=== PATIENT | male | born 1965 | race Caucasian/White ===

== ENCOUNTER 2017-12-27 19:57 | Emergency (ER) | payer BC, SELFPAY ==
[2017-12-27 19:59] VITALS: BP 116/79; PULSE 105; RESP 20; TEMP 37.2; O2SAT 97; BMI 41.3
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
[2017-12-27 21:24] VITALS: BP 112/78; PULSE 71; RESP 17; O2SAT 97
== END 2017-12-27 21:25 | disposition home or self-care (01) ==
LOC: ED 20:21
PROVIDERS: Emergency Provider Emergency Medicine; Family Provider Family Medicine; PCP Family Medicine
DX: S43.402A Unspecified sprain of left shoulder joint, initial encounter (principal); S40.012A Contusion of left shoulder, initial encounter; V59.40XA Driver of pick-up truck or van injured in collision with unspecified motor vehicles in traffic accident, initial encounter; Y93.89 Activity, other specified; Y92.9 Unspecified place or not applicable
CPT/HCPCS: 73030; 99283

== ENCOUNTER → 2018-02-22 16:44 | Outpatient (CLI) | payer BC, SELFPAY ==
[2018-02-22 17:51] LABS: Hematocrit 46.2 % (40-54); Hemoglobin 15.8 g/dl (13.0-16.5); Mean Corp Hgb Conc 34.2 g/gl (32-36); Mean Corpuscular Hgb 31.1 pg (27.0-32.0); Mean Corpuscular Volume 90.9 fL (80-94); Platelet Count 178 K/mm3 (150-450); RBC Distribution Width SD 42.9 fl (35.1-43.9); Red Blood Count 5.08 M/mm3 (4.6-6.2); White Blood Count 8.2 K/mm3 (4.4-11.0)
[2018-02-22 18:21] LABS: Anion Gap 12 (5-15); BUN 15 mg/dL (7-18); BUN/Creat Ratio 14.3 RATIO (10-20); Calcium,Total 8.3 mg/dL (8.5-10.1); Chloride 106 mmol/L (98-107); Creatinine, Serum 1.05 mg/dL (0.70-1.30); EST Glomerular Filtration Rate 78 mL/min (>60); Est Glom Filt Rate - Afr Amer 94 mL/min (>60); Glucose 93 mg/dL (74-106); Potassium 4.5 mmol/L (3.5-5.1); Sodium Level 144 mmol/L (136-145)
[2018-02-22 18:56] LABS: Scan Indicated on CBC? Y/N NO
== END ==
PROVIDERS: Family Provider Family Medicine; PCP Family Medicine; Visit Provider Physician Assistant
DX: Z01.818 Encounter for other preprocedural examination (principal)
CPT/HCPCS: 36415; 80048; 85027; 93005

== ENCOUNTER 2020-04-29 18:20 | Emergency (ER) | payer BC, SELFPAY ==
[2020-04-29 18:22] VITALS: BP 128/91; PULSE 114; RESP 17; TEMP 35.8; O2SAT 98; BMI 41.1
--- NOTE | 2020-04-29 19:20 | ED.DCSUM_ITS ---
- ER Visit Summary Date of Service: 04/29/20 Chief Complaint: Right wrist laceration History of Present Illness: The patient is a 54 M who presents with a laceration to his right wrist that occurred today. Patient states there was a large amount of bleeding initially. Patient was using a chainsaw to cut tree limbs when he accidentally cut his wrist. Patient states the bleeding stopped after several minutes of pressure. Patient denies any paresthesias or weakness. Patient states his last tetanus was between 5 and 10 years ago. Patient denies any other injuries. Physical Examination: Vital signs are stable. Patient is afebrile. Patient is in no acute distress. Musculoskeletal exam reveals 4 cm linear laceration over the ulnar aspect of the right wrist. There is moderate gapping of the wound margins. There are no foreign bodies noted. Strength is 5/5 in all motions of the right wrist. Sensation was intact to light touch in the radial, median, and ulnar areas. Capillary refill was less than 2 seconds in all digits. Radial and ulnar pulses are equal bilaterally. Emergency Department Course and Treatment: The wound was cleaned and irrigated with copious amounts of normal saline. The wound was anesthetized with 1% plain lidocaine locally. The wound was closed with 7 simple interrupted #4-0 nylon sutures under sterile technique. Patient tolerated the procedure well. Bacitracin dressing was applied. Patient was given a dose of Keflex here. Patient was given a prescription for Keflex. Patient was instructed to follow- up with his primary care physician in 7 days for wound recheck and suture removal. Patient understood and was agreeable with the plan. All questions were answered. Disposition: Discharge home Impression: Right wrist laceration This note was generated with [employer] dictation software. It may contain incorrect words, spelling, and punctuation that were not noted in review of the chart prior to signing ED Disposition - Plan for ED Patient: Disposition: Home or Assisted Living Diagnosis: Laceration of right wrist Instructions: ED Laceration Ext Sutr Stap Tape Prescriptions: Cephalexin [Keflex] 500 mg PO Q6 #40 cap Transmission Status: Pending to [facility]/pharmacy #[id number] Referrals: Compa Elizalde III, MD [Primary Care Provider] - 7 Days for suture removal
[2020-04-29] MEDS: Diphth,Pertuss(Acell),Tet Vac 0.5 ML Vial IM (19:41)
[2020-04-29] MEDS: BACITRACIN 15 GM Tube 1 APPLIC TOPICAL (21:15)
[2020-04-29] MEDS: Cephalexin 500 MG Capsule PO (21:15)
[2020-04-29 21:18] VITALS: RESP 16
== END 2020-04-29 21:19 | disposition home or self-care (01) ==
PROVIDERS: Emergency Provider Emergency Medicine; PCP Family Medicine
DX: S61.511A Laceration without foreign body of right wrist, initial encounter (principal); W31.2XXA Contact with powered woodworking and forming machines, initial encounter; Y93.89 Activity, other specified; Y92.9 Unspecified place or not applicable; Y99.8 Other external cause status
CPT/HCPCS: 12002; 90715; 99282

== ENCOUNTER → 2024-05-01 | Outpatient (CLI) | payer BC, SELFPAY ==
--- OUTSIDE RECORDS SUMMARY | 2024-05-01 11:15 | XMS RPT_ITS | CCD ---
Author Organization [facility] Care Team Providers Care Pharmacy District Manager Name Role Phone NAVEEDDR RUCHI WESTFALL DO Primary Care Physician [phone] IVY LIU, DR CRISTOFER Worthy Attending Kasey Boston MD, DR CRISTOFER Worthy Attending Kasey Boston MD, DR CRISTOFER Worthy Admitting Kasey Schmidt, TRACIE Chacko [facility] RUCHI Worthy Primary Care Unavailab Darvin LIU, DR CRISTOFER Worthy Attending Kasey le Medications Current Medications Medication Drug Class(es) Dates Sig (Normalized) Sig (Original) acetaminophen 1000 mg oral tablet (1 source) Start: 04-17-2024 take 1 tablet by mouth once daily Tylenol Dose : 1,000 mg = 2 tab(s), Oral, q8h, not to exceed 3000 mg/day, 0 Refill(s) Start Date: 04/17/24 Status: Ordered aspirin 81 mg oral tablet (1 source) Platelet Aggregation Inhibitor, Nonsteroidal Anti-inflammatory Drug Start: 04-17-2024 take 1 tablet by mouth twice daily at mealtime aspirin Dose : 81 mg = 1 tab(s), Oral, BIDM, Take 81 mg aspirin twice daily with food for 4 weeks postoperatively for DVT prophylaxis., 0 Refill(s) Start Date: 04/17/24 Status: Ordered docusate sodium 50 mg / sennosides, care home 8.6 mg oral tablet (1 source) Start: 04-17-2024 End: 04-20-2024 take 1 tablet by mouth twice daily Senokot S 50 mg-8.6 mg oral tablet Dose = 2 tab(s), Oral, BID, Take until first bowel movement, then as needed, X 3 day(s), # 12 tab(s), 0 Refill(s), Pharmacy: [facility]/pharmacy #[id number], 177.8, cm, 04/16/24 10:40:00 EDT, Height, kg, 04/16/24 10:40:00 EDT, Dosing Weight Start Date: 04/17/24 Stop Date: 04/20/24 Status: Ordered doxycycline hyclate 100 mg oral capsule (1 source) Tetracycline-class Drug Start: 04-17-2024 End: 05-01-2024 doxycycline hyclate 100 mg oral capsule Dose : 100 mg = 1 cap(s), Oral, q12h, X 14 day(s), # 28 cap(s), 0 Refill(s), 05/01/24 9:04:00 AM EDT, Pharmacy: [facility]/pharmacy #[id number], 177.8, cm, 04/16/24 10:40:00 EDT, Height, 131.8, kg, 04/16/24 10:40:00 EDT, Dosing Weight Start Date: 04/17/24 Stop Date: 05/01/24 Status: Ordered famotidine 20 mg oral tablet (1 source) Histamine-2 Receptor Antagonist Start: 04-17-2024 Pepcid 20 mg oral tablet Dose : 20 mg = 1 tab(s), Oral, qDay, # 30 tab(s), 0 Refill(s), Pharmacy: [facility]/pharmacy #[id number], 177.8, cm, 04/16/24 10:40:00 EDT, Height, kg, 04/16/24 10:40:00 EDT, Dosing Weight Start Date: 04/17/24 Status: Ordered meloxicam 7.5 mg oral tablet (3 sources) Nonsteroidal Anti-inflammatory Drug Start: 04-17-2024 Mobic 7.5 mg oral tablet Dose : 7.5 mg = 1 tab(s), Oral, BIDM, Do not take any other nonsteroidal anti-inflammatories while on meloxicam/Mobic., # 60 tab(s), 0 Refill(s), Pharmacy: [facility]/pharmacy #[id number], 177.8, cm, 04/16/24 10:40:00 EDT, Height, kg, 04/16/24 10:40:00 EDT, Dosing Weight Start Date: 04/17/24 Status: Ordered Start: 03-21-2024 meloxicam 15 m g oral tablet Dose : 15 mg = 1 tab(s), Oral, qDay, # 30 tab(s), 0 Refill(s) Start Date: 03/21/24 Status: Ordered oxyCODONE hydrochloride 5 mg oral tablet (1 source) Opioid Agonist Start: 04-17-2024 End: 04-24-2024 take 1-2 tablets by mouth every four hours as needed for pain oxyCODONE 5 mg oral tablet ( IMMEDIATE release ) See Instructions, PRN as needed for pain, 1-2 tab(s) Oral q4h, # 42 tab(s), 0 Refill(s), 04/24/24 9:05:00 AM EDT, Pharmacy: [facility]/pharmacy #[id number], Status post total left knee replacement, 177.8, cm, 04/16/24 10:40:00 EDT, Height, 131.8, kg, 04/16/24 10:40:00 EDT, Dosing Weight Start Date: 04/17/24 Stop Date: 04/24/24 Status: Ordered Problems Problem Classification Problem Date Documented Da te Episodic/Chronic Diseases of white blood cells (1 source) Leukocytosis; Translations: [Elevated white blood cell count, unspecified] Onset: 04-17-2024 Chronic Essential hypertension (1 source) Essential hypertension; Translations: [Essential (primary) hypertension] Onset: 04-17-2024 Chronic Osteoarthritis (1 source) Osteoarthritis; Translations: [Unspecified osteoarthritis, unspecified site] Onset: 04-17-2024 Chronic Other connective tissue disease (1 source) Artificial knee joint present; Translations: [Presence of left artificial knee joint] Onset: 04-17-2024 Chronic Results Test Name Value Interpretation Reference Range Facility .Auto Diffon 04-17-2024 Basophil, Absolute 0.0 10 3/mcL Normal 0.0-0.2 [facility] Comment on above: Performed By: #### A GABRIEL IZAGUIRRE #### [address] [place], [place] [address] Basophils/100 WBC (Bld) 0.2 % Normal 0.0-2.5 [facility] Comment on above: Performed By: #### A GABRIEL IZAGUIRRE #### [facility] [address] [place], [place] [address] Eosinophil, Absolute 0.0 10 3/mcL Normal 0.0-0.7 [facility] Comment on above: Performed By: #### A GABRIEL IZAGUIRRE #### [address] [address] Eosinophils/100 WBC (Bld) 0.0 % Normal 0.0-7.0 [facility] Comment on above: Performed By: #### A GABRIEL IZAGUIRRE #### [address] [address] Lymphocyte, Absolute 1.0 10 3/mcL Normal 0.9-4.3 [facility] Comment on above: Performed By: #### A GABRIEL IZAGUIRRE #### [address] [address] Lymphocytes/100 WBC (Bld) 6.4 % Low 20.0-40.0 [facility] Comment on above: Performed By: #### A GABRIEL IZAGUIRRE #### [address] [address] Monocyte, Absolute 1.3 10 3/mcL Normal 0.1-1.4 [facility] Comment on above: Performed By: #### A GABRIEL IZAGUIRRE #### [address] [address] Monocytes/100 WBC (Bld) 8.1 % Normal 2.0-13.0 [facility] Comment on above: Performed By: #### A GABRIEL IZAGUIRRE #### [address] [address] Neutrophils/100 WBC (Bld) 85.3 % High 50.0-75.0 [facility] Comment on above: Performed By: #### A GABRIEL IZAGUIRRE #### [address] [address] .GFRon 04-17-2024 GFR 107 ml/min/1.73sqm Normal [facility] Comment on above: Result Comment: GFR Population mean for , Non- Americans Ages 20-29 = 116 mL/min/1.73 sq.m. Ages 30-39 = 107 mL/min/1.73 sq.m. Ages 40-49 = 99 mL/min/1.73 sq.m. Ages 50-59 = 93 mL/min/1.73 sq.m. Ages 60-69 = 85 mL/min/1.73 sq.m. Ages 70+ = 75 mL/min/1.73 sq.m. Chronic Kidney Disease: Less than 60 mL/min/1.73 square meters End Stage Renal Disease: Less than 15 mL/min/1.73 square meters Performed By: #### A GABRIEL IAZGUIRRE #### [address] [address] GFR Non- 88 ml/min/1.73sqm Normal [facility] Comment on above: Result Comment: GFR Population mean for , Non- Americans Ages 20-29 = 116 mL/min/1.73 sq.m. Ages 30-39 = 107 mL/min/1.73 sq.m. Ages 40-49 = 99 mL/min/1.73 sq.m. Ages 50-59 = 93 mL/min/1.73 sq.m. Ages 60-69 = 85 mL/min/1.73 sq.m. Ages 70+ = 75 mL/min/1.73 sq.m. Chronic Kidney Disease: Less than 60 mL/min/1.73 square meters End Stage Renal Disease: Less than 15 mL/min/1.73 square meters Performed By: #### GABRIEL NICHOLS #### [address] [address] .NEUABSon 04-17-2024 Neutrophil, Absolute 13.8 10 3/mcL High 2.3-8.1 [facility] Comment on above: Performed By: #### GABRIEL NICHOLS #### [address] [address] BMPon 04-17-2024 BUN/Creatinine Ratio 22 ratio Normal 7-27 [facility] Comment on above: Performed By: #### GABRIEL NICHOLS #### [address] [address] Calcium [Mass/Vol] 8.5 mg/dL Normal 8.4-10.2 [facility] Comment on above: Performed By: #### A GABRIEL IZAGUIRRE #### [place] [address] Chloride [Moles/Vol] 100 mmol/L Normal 98-107 [facility] Comment on above: Performed By: #### A GABRIEL IZAGUIRRE #### [place] CO2 [Moles/Vol] 29 mmol/L Normal 23-31 [facility] Comment on above: Performed By: #### A GBARIEL IZAGUIRRE #### [place] [address] Creatinine [Mass/Vol] 0.88 mg/dL Normal 0.70-1.30 [facility] Comment on above: Result Comment: Test ing performed on Siemens Dimension EXL analyzer using a modified kinetic Jf technique. Performed By: #### GABRIEL NICHOLS #### [address] [address] Electrolyte Balance 10.0 mEq/L Normal 4.0-15.0 [facility] Comment on above: Performed By: #### GABRIEL NICHOLS #### [address] [address] Glucose [Mass/Vol] 156 mg/dL High 80-115 [facility] Comment on above: Performed By: #### GABRIEL NICHOLS #### [address] [address] Potassium [Moles/Vol] 4.8 mmol/L Normal 3.5-5.1 [facility] Comment on above: Performed By: #### GARBIEL NICHOLS #### [place] [address] Sodium [Moles/Vol] 139 mmol/L Normal 136-145 [facility] Comment on above: Performed By: #### GABRIEL NICHOLS #### [place] [id number] Urea nitrogen [Mass/Vol] 19 mg/dL High 7-18 [facility] Comment on above: Performed By: #### A GABRIEL IZAGUIRRE #### [address] [address] CBCon 04-17-2024 Erythrocyte distribution width (RBC) [Ratio] 13.7 % Normal 11.5-15.5 [facility] Comment on above: Performed By: #### A GABRIEL IZAGUIRRE #### [address] [address] Hematocrit (Bld) [Volume fraction] 43.6 % Normal 40.0-52.0 [facility] Comment on above: Performed By: #### A GABRIEL IZAGUIRRE #### [address] [address] Hgb 14.8 G/dL Normal 13.0-17.5 [facility] Comment on above: Performed By: #### A GABRIEL IZAGUIRRE #### [address] [address] MCH (RBC) [Entitic mass] 31.3 pg Normal 27.0-33.0 [facility] Comment on above: Performed By: #### A GABRIEL IZAGUIRRE #### [address] [address] MCHC 33.9 G/dL Normal 32.0-36.0 [facility] Comment on above: Performed By: #### A GABRIEL IZAGUIRRE #### [address] [address] MCV (RBC) [Entitic vol] 92.3 fL Normal 81.0-100.0 [facility] Comment on above: Performed By: #### A GABRIEL IZAGUIRRE #### [address] [address] Platelet 217 10 3/mcL Normal 150-450 [facility] Comment on above: Performed By: #### A GABRIEL IZAGUIRRE #### [place] [id number] Platelet mean volume (Bld) [Entitic vol] 7.7 fL Normal 6.4-10.5 [facility] Comment on above: Performed By: #### A GABRIEL IZAGUIRRE #### [facility] [address] [place], [place] [address] RBC 4.72 10 6/mcL Normal 4.50-6.00 [facility] Comment on above: Performed By: #### A GABRIEL IZAGUIRRE #### [facility] [address] [place], [place] [address] WBC 16.1 10 3/mcL High 4.5-10.8 [facility] Comment on above: Performed By: #### A GABRIEL IZAGUIRRE #### [address] [place], [place] [address] LABORATORYOrdered By: SYSTEM SYSTEM on 04-17-2024 Basophils (Bld) [#/Vol] 0.0 103/mcL Normal 0.0 - 0.2 10^3/mcL AO Workflow SS Basophils/100 WBC (Bld) 0.2 % Normal 0.0 - 2.5 % AO Workflow SS Calcium [Mass/Vol] 8.5 mg/dL Normal 8.4 - 10. 2 mg/dL AO ADM SS Chloride [Moles/Vol] 100 mmol/L Normal 98 - 10 7 mmol/L AO ADM SS CO2 [Moles/Vol] 29 mmol/L Normal 23 - 31 mmol/L AO ADM SS Creatinine [Mass/Vol] 0.88 mg/dL Normal 0.70 - 1.30 mg/dL AO ADM SS Comment on above: Interpretive Data: T esting performed on Siemens Dimension EXL analyzer using a modified kinetic Jf technique. Electrolyte Balance 10.0 mEq/L Normal 4.0 - 15 .0 mEq/L AO ADM SS Eosinophil, Absolute 0.0 103/mcL Normal 0.0 - 0 .7 10^3/mcL AO Workflow SS Eosinophils/100 WBC (Bld) 0.0 % Normal 0.0 - 7.0 % AO Workflow SS Erythrocyte distribution width (RBC) [Ratio] 13.7 % Normal 11.5 - 15.5 % AO Workflow SS GFR/1.73 sq M.predicted among blacks MDRD (S/P/Bld) [Vol rate/Area] 107 ml/min/1.73sqm Invalid Interpretation Code AO Chemistry S Comment on above: Interpretive Data: GFR Population mean for , Non- Americans Ages 20-29 = 116 mL/min/1.73 sq.m. Ages 30-39 = 107 mL/min/1.73 sq.m. Ages 40-49 = 99 mL/min/1.73 sq.m. Ages 50-59 = 93 mL/min/1.73 sq.m. Ages 60-69 = 85 mL/min/1.73 sq.m. Ages 70+ = 75 mL/min/1.73 sq.m. Chronic Kidney Disease: Less than 60 mL/min/1.73 square meters End Stage Renal Disease: Less than 15 mL/min/1.73 square meters GFR/1.73 sq M.predicted among non-blacks MDRD (S/P/Bld) [Vol rate/Area] 88 ml/min/1.73sqm Invalid Interpretation Code AO Chemistry S Comment on above: Interpretive Data: GFR Population mean for , Non- Americans Ages 20-29 = 116 mL/min/1.73 sq.m. Ages 30-39 = 107 mL/min/1.73 sq.m. Ages 40-49 = 99 mL/min/1.73 sq.m. Ages 50-59 = 93 mL/min/1.73 sq.m. Ages 60-69 = 85 mL/min/1.73 sq.m. Ages 70+ = 75 mL/min/1.73 sq.m. Chronic Kidney Disease: Less than 60 mL/min/1.73 square meters End Stage Renal Disease: Less than 15 mL/min/1.73 square meters Glucose [Mass/Vol] 156 mg/dL High 80 - 115 mg/dL AO ADM SS Hematocrit (Bld) [Volume fraction] 43.6 % Normal 40.0 - 52.0 % AO Workflow SS Hemoglobin (Bld) [Mass/Vol] 14.8 G/dL Normal 13.0 - 17.5 G/dL AO Workflow SS Lymphocytes (Bld) [#/Vol] 1.0 103/mcL Normal 0.9 - 4.3 10^3/mcL AO Workflow SS Lymphocytes/100 WBC (Bld) 6.4 % Low 20.0 - 40.0 % AO Workflow SS MCH (RBC) [Entitic mass] 31.3 pg Normal 27.0 - 33.0 pg AO Workflow SS MCHC 33.9 G/dL Normal 32.0 - 36.0 G/dL AO Workflow SS MCV (RBC) [Entitic vol] 92.3 fL Normal 81.0 - 100.0 fL AO Workflow SS Monocytes (Bld) [#/Vol] 1.3 103/mcL Normal 0.1 - 1.4 10^3/mcL AO Workflow SS Monocytes/100 WBC (Bld) 8.1 % Normal 2.0 - 13.0 % AO Workflow SS Neutrophils (Bld) [#/Vol] 13.8 103/mcL High 2.3 - 8.1 10^3/mcL AO Workflow SS Neutrophils/100 WBC (Bld) 85.3 % High 50.0 - 75.0 % AO Workflow SS Platelet mean volume (Bld) [Entitic vol] 7.7 fL Normal 6.4 - 10.5 fL AO Workflow SS Platelets (Bld) [#/Vol] 217 103/mcL Normal 150 - 450 10^3/mcL AO Workflow SS Potassium [Moles/Vol] 4.8 mmol/L Normal 3.5 - 5.1 mmol/L AO ADM SS RBC (Bld) [#/Vol] 4.72 106/mcL Normal 4.50 - 6.0 0 10^6/mcL AO Workflow SS Sodium [Moles/Vol] 139 mmol/L Normal 136 - 145 mmol/L AO ADM SS Urea nitrogen [Mass/Vol] 19 mg/dL High 7 - 18 mg/dL AO ADM SS Urea nitrogen/Creatinine [Mass ratio] 22 ratio Normal 7 - 27 ratio AO ADM SS WBC (Bld) [#/Vol] 16.1 103/mcL High 4.5 - 10.8 10^3/mcL AO Workflow SS ABO/Rh (Gel)on 04-16-2024 ABO/Rh Interp Positive Invalid Interpretation Code [facility] Comment on above: Performed By: #### A GABRIEL IZAGUIRRE #### [facility] [address] [place], [place] [address] ABS (Gel)on 04-16-2024 ABSC Interp (Gel) Negative Normal [facility] Comment on above: Performed By: #### A GABRIEL IZAGUIRRE #### [address] [place], [place] [address] LABORATORYOrdered By: Heydi Lara on 04-16-2024 ABO and Rh group Nom (Bld) Blood group A Rh(D) positive Invalid Interpretation Code AO BB Auto SS Blood group antibody screen Ql Negative ABSC (04/16/24 6:12 AM) Normal AO BB Auto SS XR KNEE 1 OR 2 VIEWS LEFTon 04-16-2024 XR KNEE 1 OR 2 VIEWS LEFT ORIGINAL EXAMINATION: TWO XRAY VIEWS OF THE LEFT KNEE04/16/2024 9:26 am COMPARISON: CT 03/31/2024 HISTORY: Reason for exam: Status post arthroplasty FINDINGS: Total right knee arthroplasty. Alignment is anatomic. No radiographic evidence of hardware malfunction. Expected recent postoperative changes with surgical jessi overlying the midline knee, soft tissue swelling most notably anteriorly, and subcutaneous gas as well as gas within the knee joint. Small suprapatellar joint effusion. No periprosthetic fracture or other acute fracture. IMPRESSION: Total right knee arthroplasty with immediate postoperative changes. I have personally reviewed the images of this examination and agree with the resident's findings and interpretation. Interpreted by: Thee Tony MD Preliminary Report By: Harry Peña Electronically signed By Thee Tony MD Dictated Date: 04/16/2024 9:46:20 AM Prelim Date: 04/16/2024 10:12:44 AM Sign Date: 04/16/2024 10:12:44 AM Ordering Provider: CRISTOFER HAYNES [facility] CT KNEE W/O CONTRAST LEFTon 03-22-2024 CT KNEE W/O CONTRAST LEFT ORIGINAL EXAMINATION: CT OF THE LEFT KNEE WITHOUT CONTRAST03/21/2024 3:54 pm TECHNIQUE: CT of the left knee was performed without the administration of intravenous contrast. Multiplanar reformatted images are provided for review. Automated exposure control, iterative reconstruction, and/or weight based adjustment of the mA/kV was utilized to reduce the radiation dose to as low as reasonably achievable. COMPARISON: None HISTORY: ORDERING SYSTEM PROVIDED HISTORY: Reason for Exam: Chronic left knee pain, osteoarthritis FINDINGS: No acute fracture or dislocation is identified. Bony alignment is within normal limits. Severe degenerative changes of the medial tibiofemoral and moderate degenerative changes of the lateral tibiofemoral and patellofemoral compartments with joint space narrowing, subchondral sclerosis/cyst, and osteophyte formation. Vacuum phenomenon is visualized within the medial tibiofemoral compartment. Small loose bodies are visualized posterior to the medial femoral condyle. Small suprapatellar joint effusion. Mild soft tissue swelling anterior to the patella and patellar tendon. Scattered vascular calcifications. Multiple dilated tortuous vessels in the superficial medial knee soft tissue may represent varicose veins. The soft tissues are otherwise unremarkable. Limited evaluation of the left hip: No acute fracture or dislocation. Mild degenerative changes of the left hip. Small enthesophytes at the greater trochanter. No suspicious osseous lesion. Prostatic calcifications. Partially visualized fat containing left inguinal hernia. Limited evaluation of the left ankle: No acute fracture or dislocation. Degenerative changes of the tibiotalar and talonavicular joint. Small calcaneal Achilles enthesophytes. Vascular calcifications. No large joint effusion is identified. IMPRESSION: Moderate to severe degenerative changes as above. Small suprapatellar joint effusion. Mild soft tissue swelling anterior to the patella/patellar tendon. I have personally reviewed the images of this examination and agree with the resident's findings and interpretation. Interpreted by: Miquel Lomax MD Preliminary Report By: Costa Isbell Electronically signed By Miquel Lomax MD Dictated Date: 03/21/2024 4:17:05 PM Prelim Date: 03/22/2024 11:02:11 AM Sign Date: 03/22/2024 11:02:11 AM Ordering Provider: CRISTOFER Pappas [facility] .Auto Diffon 03-21-2024 Basophil, Absolute 0.1 10 3/mcL Normal 0.0-0.2 [facility] Comment on above: Performed By: #### A BSGEL, ADIFF, ABOGEL, BMP, ANEU, CBC, GFR, ALB #### [facility] [address] [place], [place] [address] Basophils/100 WBC (Bld) 0.8 % Normal 0.0-2.5 [facility] Comment on above: Performed By: #### A BSGEL, ADIFF, ABOGEL, BMP, ANEU, CBC, GFR, ALB #### [facility] [address] [place], [place] [address] Eosinophil, Absolute 0.3 10 3/mcL Normal 0.0-0.4 [facility] Comment on above: Performed By: #### A BSGEL, ADIFF, ABOGEL, BMP, ANEU, CBC, GFR, ALB #### [address] [address] Eosinophils/100 WBC (Bld) 3.5 % Normal 0.0-7.0 [facility] Comment on above: Performed By: #### A BSGEL, ADIFF, ABOGEL, BMP, ANEU, CBC, GFR, ALB #### [address] [address] Lymphocyte, Absolute 2.1 10 3/mcL Normal 0.8-3.9 [facility] Comment on above: Performed By: #### A BSGEL, ADIFF, ABOGEL, BMP, ANEU, CBC, GFR, ALB #### [address] [address] Lymphocytes/100 WBC (Bld) 27.8 % Normal 10.0-50.0 [facility] Comment on above: Performed By: #### A BSGEL, ADIFF, ABOGEL, BMP, ANEU, CBC, GFR, ALB #### [address] [address] Monocyte, Absolute 0.6 10 3/mcL Normal 0.2-1.0 [facility] Comment on above: Performed By: #### A BSGEL, ADIFF, ABOGEL, BMP, ANEU, CBC, GFR, ALB #### [address] [address] Monocytes/100 WBC (Bld) 8.2 % Normal 1.7-13.0 [facility] Comment on above: Performed By: #### A BSGEL, ADIFF, ABOGEL, BMP, ANEU, CBC, GFR, ALB #### [address] [address] Neutrophils/100 WBC (Bld) 59.7 % Normal 37.0-80.0 [facility] Comment on above: Performed By: #### A BSGEL, ADIFF, ABOGEL, BMP, ANEU, CBC, GFR, ALB #### [address] [address] .GFRon 03-21-2024 GFR Non- 72 ml/min/1.73sqm Normal [facility] Comment on above: Result Comment: GFR Population mean for , Non- Americans Ages 20-29 = 116 mL/min/1.73 sq.m. Ages 30-39 = 107 mL/min/1.73 sq.m. Ages 40-49 = 99 mL/min/1.73 sq.m. Ages 50-59 = 93 mL/min/1.73 sq.m. Ages 60-69 = 85 mL/min/1.73 sq.m. Ages 70+ = 75 mL/min/1.73 sq.m. Chronic Kidney Disease: Less than 60 mL/min/1.73 square meters End Stage Renal Disease: Less than 15 mL/min/1.73 square meters Performed By: #### A GABRIEL IZAGUIRRE #### [address] [address] GFR 87 ml/min/1.73sqm Normal [facility] Comment on above: Result Comment: GFR Population mean for , Non- Americans Ages 20-29 = 116 mL/min/1.73 sq.m. Ages 30-39 = 107 mL/min/1.73 sq.m. Ages 40-49 = 99 mL/min/1.73 sq.m. Ages 50-59 = 93 mL/min/1.73 sq.m. Ages 60-69 = 85 mL/min/1.73 sq.m. Ages 70+ = 75 mL/min/1.73 sq.m. Chronic Kidney Disease: Less than 60 mL/min/1.73 square meters End Stage Renal Disease: Less than 15 mL/min/1.73 square meters Performed By: #### A GABRIEL IZAGUIRRE #### [address] [address] .NEUABSon 03-21-2024 Neutrophil, Absolute 4.6 10 3/mcL Normal 2.9-6.2 [facility] Comment on above: Performed By: #### A BSGEL, ADIFF, ABOGEL, BMP, ANEU, CBC, GFR, ALB #### [address] [address] ABO/Rh (Gel)on 03-21-2024 ABO/Rh Interp Positive Invalid Interpretation Code [facility] Comment on above: Performed By: #### A ZINA ABSGEL #### [address] [address] ABS (Gel)on 03-21-2024 ABSC Interp (Gel) Negative Normal [facility] Comment on above: Performed By: #### A ZINA ABSGEL #### [address] [address] ALBon 03-21-2024 Albumin Level 3.7 G/dL Normal 3.4-4.8 [facility] Comment on above: Performed By: #### A BSGEL, ADIFF, ABOGEL, BMP, ANEU, CBC, GFR, ALB #### [address] [address] BMPon 03-21-2024 BUN/Creatinine Ratio 25 ratio Normal 7-27 [facility] Comment on above: Performed By: #### A BSGEL, ADIFF, ABOGEL, BMP, ANEU, CBC, GFR, ALB #### [address] [address] Calcium [Mass/Vol] 8.8 mg/dL Normal 8.4-10.2 [facility] Comment on above: Performed By: #### A BSGEL, ADIFF, ABOGEL, BMP, ANEU, CBC, GFR, ALB #### [address] [address] Chloride [Moles/Vol] 105 mmol/L Normal 98-107 [facility] Comment on above: Performed By: #### A BSGEL, ADIFF, ABOGEL, BMP, ANEU, CBC, GFR, ALB #### [address] [address] CO2 [Moles/Vol] 26 mmol/L Normal 23-31 [facility] Comment on above: Performed By: #### A BSGEL, ADIFF, ABOGEL, BMP, ANEU, CBC, GFR, ALB #### [address] [address] Creatinine [Mass/Vol] 1.05 mg/dL Normal 0.70-1.30 [facility] Comment on above: Result Comment: Test ing performed on Siemens Dimension EXL analyzer using a modified kinetic Fj technique. Performed By: #### A BSGEL, ADIFF, ABOGEL, BMP, ANEU, CBC, GFR, ALB #### [address] [address] Electrolyte Balance 11.0 mEq/L Normal 4.0-15.0 [facility] Comment on above: Performed By: #### A BSGEL, ADIFF, ABOGEL, BMP, ANEU, CBC, GFR, ALB #### [address] [address] Glucose [Mass/Vol] 109 mg/dL Normal 80-115 [facility] Comment on above: Performed By: #### A BSGEL, ADIFF, ABOGEL, BMP, ANEU, CBC, GFR, ALB #### [address] [address] Potassium [Moles/Vol] 4.2 mmol/L Normal 3.5-5.1 [facility] Comment on above: Performed By: #### A BSGEL, ADIFF, ABOGEL, BMP, ANEU, CBC, GFR, ALB #### [address] [address] Sodium [Moles/Vol] 142 mmol/L Normal 136-145 [facility] Comment on above: Performed By: #### A BSGEL, ADIFF, ABOGEL, BMP, ANEU, CBC, GFR, ALB #### [address] [address] Urea nitrogen [Mass/Vol] 26 mg/dL High 7-18 [facility] Comment on above: Performed By: #### A BSGEL, ADIFF, ABOGEL, BMP, ANEU, CBC, GFR, ALB #### [place] [id number] [facility]Con 03-21-2024 Erythrocyte distribution width (RBC) [Ratio] 13.6 % Normal 11.5-14.5 [facility] Comment on above: Order Comment: Pre-A dmission Testing Performed By: #### A BSGEL, ADIFF, ABOGEL, BMP, ANEU, CBC, GFR, ALB #### [place] [address] Hematocrit (Bld) [Volume fraction] 46.6 % Normal 42.0-52.0 [facility] Comment on above: Order Comment: Pre-A dmission Testing Performed By: #### A BSGEL, ADIFF, ABOGEL, BMP, ANEU, CBC, GFR, ALB #### [place] [address] Hgb 16.0 G/dL Normal 14.0-18.0 [facility] Comment on above: Order Comment: Pre-A dmission Testing Performed By: #### A BSGEL, ADIFF, ABOGEL, BMP, ANEU, CBC, GFR, ALB #### [place] [address] MCH (RBC) [Entitic mass] 31.4 pg High 27.0-31.2 [facility] Comment on above: Order Comment: Pre-A dmission Testing Performed By: #### A BSGEL, ADIFF, ABOGEL, BMP, ANEU, CBC, GFR, ALB #### [place] [address] MCHC 34.3 G/dL Normal 31.8-35.4 [facility] Comment on above: Order Comment: Pre-A dmission Testing Performed By: #### A BSGEL, ADIFF, ABOGEL, BMP, ANEU, CBC, GFR, ALB #### [place] [id number] MCV (RBC) [Entitic vol] 91.5 fL Normal 80.0-94.0 [facility] Comment on above: Order Comment: Pre-A dmission Testing Performed By: #### A BSGEL, ADIFF, ABOGEL, BMP, ANEU, CBC, GFR, ALB #### [address] [address] Platelet 196 10 3/mcL Normal 130-400 [facility] Comment on above: Order Comment: Pre-A dmission Testing Performed By: #### A BSGEL, ADIFF, ABOGEL, BMP, ANEU, CBC, GFR, ALB #### [address] [address] Platelet mean volume (Bld) [Entitic vol] 7.3 fL Low 7.4-10.4 [facility] Comment on above: Order Comment: Pre-A dmission Testing Performed By: #### A BSGEL, ADIFF, ABOGEL, BMP, ANEU, CBC, GFR, ALB #### [address] [address] RBC 5.09 10 6/mcL Normal 4.04-6.13 [facility] Comment on above: Order Comment: Pre-A dmission Testing Performed By: #### A BSGEL, ADIFF, ABOGEL, BMP, ANEU, CBC, GFR, ALB #### [address] [address] WBC 7.7 10 3/mcL Normal 4.6-10.8 [facility] Comment on above: Order Comment: Pre-A dmission Testing Performed By: #### A BSGEL, ADIFF, ABOGEL, BMP, ANEU, CBC, GFR, ALB #### [address] [address] LABORATORYOrdered By: Shaggy Calderon on 03-21-2024 ABO and Rh group Nom (Bld) Blood group A Rh(D) positive Invalid Interpretation Code AO BB Auto SS Blood group antibody screen Ql Negative ABSC (03/21/24 2:55 PM) Normal AO BB Auto SS LABORATORYOrdered By: [employer] on 03-21-2024 Albumin BCP dye [Mass/Vol] 3.7 G/dL Normal 3.4 - 4.8 G/dL AO ADM SS Basophils (Bld) [#/Vol] 0.1 103/mcL Normal 0.0 - 0.2 10^3/mcL AO Workflow SS Basophils/100 WBC (Bld) 0.8 % Normal 0.0 - 2.5 % AO Workflow SS Calcium [Mass/Vol] 8.8 mg/dL Normal 8.4 - 10. 2 mg/dL AO ADM SS Chloride [Moles/Vol] 105 mmol/L Normal 98 - 10 7 mmol/L AO ADM SS CO2 [Moles/Vol] 26 mmol/L Normal 23 - 31 mmol/L AO ADM SS Creatinine [Mass/Vol] 1.05 mg/dL Normal 0.70 - 1.30 mg/dL AO ADM SS Comment on above: Interpretive Data: T esting performed on [employer] Dimension EXL analyzer using a modified kinetic Jf technique. Electrolyte Balance 11.0 mEq/L Normal 4.0 - 15 .0 mEq/L AO ADM SS Eosinophil, Absolute 0.3 103/mcL Normal 0.0 - 0 .4 10^3/mcL AO Workflow SS Eosinophils/100 WBC (Bld) 3.5 % Normal 0.0 - 7.0 % AO Workflow SS Erythrocyte distribution width (RBC) [Ratio] 13.6 % Normal 11.5 - 14.5 % AO Workflow SS GFR/1.73 sq M.predicted among blacks MDRD (S/P/Bld) [Vol rate/Area] 87 ml/min/1.73sqm Invalid Interpretation Code AO Chemistry S Comment on above: Interpretive Data: GFR Population mean for , Non- Americans Ages 20-29 = 116 mL/min/1.73 sq.m. Ages 30-39 = 107 mL/min/1.73 sq.m. Ages 40-49 = 99 mL/min/1.73 sq.m. Ages 50-59 = 93 mL/min/1.73 sq.m. Ages 60-69 = 85 mL/min/1.73 sq.m. Ages 70+ = 75 mL/min/1.73 sq.m. Chronic Kidney Disease: Less than 60 mL/min/1.73 square meters End Stage Renal Disease: Less than 15 mL/min/1.73 square meters GFR/1.73 sq M.predicted among non-blacks MDRD (S/P/Bld) [Vol rate/Area] 72 ml/min/1.73sqm Invalid Interpretation Code AO Chemistry S Comment on above: Interpretive Data: GFR Population mean for , Non- Americans Ages 20-29 = 116 mL/min/1.73 sq.m. Ages 30-39 = 107 mL/min/1.73 sq.m. Ages 40-49 = 99 mL/min/1.73 sq.m. Ages 50-59 = 93 mL/min/1.73 sq.m. Ages 60-69 = 85 mL/min/1.73 sq.m. Ages 70+ = 75 mL/min/1.73 sq.m. Chronic Kidney Disease: Less than 60 mL/min/1.73 square meters End Stage Renal Disease: Less than 15 mL/min/1.73 square meters Glucose [Mass/Vol] 109 mg/dL Normal 80 - 115 mg/dL AO ADM SS Hematocrit (Bld) [Volume fraction] 46.6 % Normal 42.0 - 52.0 % AO Workflow SS Hemoglobin (Bld) [Mass/Vol] 16.0 G/dL Normal 14.0 - 18.0 G/dL AO Workflow SS Lymphocytes (Bld) [#/Vol] 2.1 103/mcL Normal 0.8 - 3.9 10^3/mcL AO Workflow SS Lymphocytes/100 WBC (Bld) 27.8 % Normal 10.0 - 50.0 % AO Workflow SS MCH (RBC) [Entitic mass] 31.4 pg High 27.0 - 31.2 pg AO Workflow SS MCHC 34.3 G/dL Normal 31.8 - 35.4 G/dL AO Workflow SS MCV (RBC) [Entitic vol] 91.5 fL Normal 80.0 - 94.0 fL AO Workflow SS Monocytes (Bld) [#/Vol] 0.6 103/mcL Normal 0.2 - 1.0 10^3/mcL AO Workflow SS Monocytes/100 WBC (Bld) 8.2 % Normal 1.7 - 13.0 % AO Workflow SS Neutrophils (Bld) [#/Vol] 4.6 103/mcL Normal 2.9 - 6.2 10^3/mcL AO Workflow SS Neutrophils/100 WBC (Bld) 59.7 % Normal 37.0 - 80.0 % AO Workflow SS Platelet mean volume (Bld) [Entitic vol] 7.3 fL Low 7.4 - 10.4 fL AO Workflow SS Platelets (Bld) [#/Vol] 196 103/mcL Normal 130 - 400 10^3/mcL AO Workflow SS Potassium [Moles/Vol] 4.2 mmol/L Normal 3.5 - 5.1 mmol/L AO ADM SS RBC (Bld) [#/Vol] 5.09 106/mcL Normal 4.04 - 6.1 3 10^6/mcL AO Workflow SS Sodium [Moles/Vol] 142 mmol/L Normal 136 - 145 mmol/L AO ADM SS Urea nitrogen [Mass/Vol] 26 mg/dL High 7 - 18 mg/dL AO ADM SS Urea nitrogen/Creatinine [Mass ratio] 25 ratio Normal 7 - 27 ratio AO ADM SS WBC (Bld) [#/Vol] 7.7 103/mcL Normal 4.6 - 10.8 10^3/mcL AO Workflow SS LABORATORYOrdered By: Joy Monge on 03-21-2024 MRSA (PCR) Not Detected 1 (03/21/24 2:55 PM) Normal Not Detected Auto Viro/Sero SS Comment on above: Result Comment: Note s MRSA PCR Int MRSA DNA not detected by Real-Time Polymerase Chain Reaction (PCR). A negative result may be due to intermittent colonization. Colonization may vary depending on patient treatment, patient status, or exposure to high-risk environments.As with all PCR based in vitro diagnostic tests, extremely low levels of target below the limit of detection of the assay may be detected, but results may not be reproducible. Invalid Interpretation Code Auto Viro/Sero SS MRSAPCRon 03-21-2024 MRSA (PCR) Not detected Normal Not Detected [facility] Comment on above: Result Comment: [place] [id number] Performed By: #### M RSAPCR #### [place] [address] MRSA PCR Int Normal [facility] Comment on above: Result Comment: MRSA DNA not detected by Real-Time Polymerase Chain Reaction (PCR). A negative result may be due to intermittent colonization. Colonization may vary depending on patient treatment, patient status, or exposure to high-risk environments. As with all PCR based in vitro diagnostic tests, extremely low levels of target below the limit of detection of the assay may be detected, but results may not be reproducible. See Below Performed By: #### M RSAPCR #### [address] [address] Vital Signs Date Time Vital Sign Value [facility]forming [facility]-17-[facility] 14:50-0400 Body temperature 97.52 [degF] DR CRISTOFER HAYNES MD [facility] 04-17-2024 14:50-0400 Diastolic Blood Pressure Non-Invasive 83 mm[Hg] DR CRISTOFER HAYNES MD [facility] 04-17-2024 14:50-0400 Heart rate 98 /min DR CRISTOFER HAYNES MD [facility] 04-17-2024 14:50-0400 Reason For Taking VItal Signs DR CRISTOFER HAYNES MD [facility] 04-17-2024 14:50-0400 Respiratory rate 18 /min DR CRISTOFER HAYNES MD [facility] 04-17-2024 14:50-0400 Systolic Blood Pressure Non-Invasive 156 mm[Hg] DR CRISTOFER HAYNES MD [facility] 04-17-2024 07:36-0400 Body temperature 98.06 [degF] DR CRISTOFER HAYNES MD [facility] 04-17-2024 07:36-0400 Diastolic Blood Pressure Non-Invasive 97 mm[Hg] DR CRISTOFER HAYNES MD [facility] 04-17-2024 07:36-0400 Heart rate 90 /min DR CRISTOFER HAYNES MD [facility] 04-17-2024 07:36-0400 Respiratory rate 20 /min DR CRISTOFER HAYNES MD [facility] 04-17-2024 07:36-0400 Systolic Blood Pressure Non-Invasive 148 mm[Hg] DR CRISTOFER HAYNES MD [facility] 04-17-2024 04:39-0400 Body temperature 97.88 [degF] DR CRISTOFER HAYNES MD [facility] 04-17-2024 04:39-0400 Diastolic Blood Pressure Non-Invasive 87 mm[Hg] DR CRISTOFER HAYNES MD [facility] 04-17-2024 04:39-0400 Heart rate 92 /min DR CRISTOFER HAYNES MD [facility] 04-17-2024 04:39-0400 Respiratory rate 20 /min DR CRISTOFER HAYNES MD [facility] 04-17-2024 04:39-0400 Systolic Blood Pressure Non-Invasive 151 mm[Hg] DR CRISTOFER HAYNES MD [facility] 04-16-2024 23:44-0400 Heart rate 107 /min DR CRISTOFER HAYNES MD [facility] 04-16-2024 19:58-0400 Heart rate 108 /min DR CRISTOFER HAYNES MD [facility] 04-16-2024 14:15-0400 Heart rate 96 /min DR CRISTOFER HAYNES MD [facility] 04-16-2024 10:40-0400 Body height 177.[address] CRISTOFER HAYNES MD [facility] 04-16-2024 10:40-0400 Body weight 131.[address] CRISTOFER HAYNES MD [facility] 04-16-2024 10:40-0400 Body weight 41.69 kg/m2 DR CRISTOFER HAYNES MD [facility] 04-16-2024 09:10-0400 Body temperature 97.34 [degF] DR CRISTOFER HAYNES MD [facility] 04-16-2024 09:05-0400 Respiratory Rate - Anes 18 br/min DR CRISTOFER HAYNES MD [facility] 04-16-2024 08:55-0400 Respiratory Rate - Anes 21 br/min DR CRISTOFER HAYNES MD [facility] 04-16-2024 06:03-0400 Body height 177.[address] CRISTOFER HAYNES MD [facility] 04-16-2024 06:03-0400 Body weight 131.[address] CRISTOFER HAYNES MD [facility] 03-21-2024 14:27-0400 Body height 177.[address] CRISTOFER HAYNES MD [facility] 03-21-2024 14:27-0400 Body weight 131.[address] CRISTOFER HAYNES MD [facility] 03-21-2024 14:27-0400 Body weight 41.69 kg/m2 DR CRISTOFER HAYNES MD [facility] 03-21-2024 14:27-0400 Diastolic Blood Pressure Non-Invasive 92 mm[Hg] DR CRISTOFER HAYNES MD [facility] 03-21-2024 14:27-0400 Heart rate 85 /min DR CRISTOFER HAYNES MD [facility] 03-21-2024 14:27-0400 Respiratory rate 20 /min DR CRISTOFER HAYNES MD [facility] 03-21-2024 14:27-0400 Systolic Blood Pressure Non-Invasive 151 mm[Hg] DR CRISTOFER HAYNES MD [facility] Encounters Encounter Date Encounter Type Care Provider Facility Start: 04-16-2024 End: 04-17-[address] CRISTOFER HAYNES MD Facility:[facility] Start: 04-16-2024 End: 04-17-[address] CRISTOFER HAYNES MD [facility] Start: 03-21-2024 End: 03-21-[address] CRISTOFER HAYNES MD Facility:[facility] Start: 03-21-2024 End: 03-21-[address] CRISTOFER HAYNES MD [facility] Start: 03-21-2024 End: 03-21-[address] CRISTOFER HAYNES MD [facility] Start: 03-21-2024 End: 03-21-[address] CRISTOFER HAYNES MD Facility:[facility] Date Procedure Procedure Detail Performing Clinician Start: 04-16-[address] CRISTOFER HAYNES MD Comment on above: LEFT Arthroscopy of shoulder DR Frida HAYNES MD Comment on above: bilateral Extraction of cataract DR HECTOR LIU Comment on above: bilateral Primary repair of in guinal hernia DR CRISTOFER HAYNES MD Immunizations Immunization Date Immunization Notes Care Provider Fa [facility] 04-29-2020 tetanus toxoid, redu gualberto diphtheria toxoid, and acellular pertussis vaccine, adsorbed DR CRISTOFER HAYNES MD [facility] Payers Date Payer Category Payer Unknown [id number] 1965 Unknown [id number] [id number] 1965 Unknown [id number] [id number] 1965 Unknown [id number] [id number] Social History Date Type Detail Facility Start: 03-21-2024 Tobacco smoking status Ex-smoker (fi nding) [facility] Sex Assigned At Male [facility] Functional Status Date Assessment Result [facility] 04-17-2024 Functional Status Independent [facility] 04-17-2024 Functional Status [facility] 04-16-2024 Functional Status [facility] 04-16-2024 Functional Status [facility] 04-16-2024 Functional Status [facility] 04-16-2024 Functional Status [facility] 04-16-2024 Functional Status Single level home [facility] 04-16-2024 Functional Status [facility] 04-16-2024 Functional Status ice on, tension pillow in place [facility] 04-16-2024 Functional Status NPO Status confirmed [facility] 04-16-2024 Functional Status [facility] 03-21-2024 Functional Status Sensory Deficits None [facility] Mental Status Date Assessment Result Facility 04-17-2024 Mental Status Oriented x 4 [facility] 04-16-2024 Mental Status [facility] 04-16-2024 Mental Status [facility] Clinical Notes 06-10-2021 to 04-17-2024 Note Date & Type Note Facility 04-17-2024 Hospital Discharge instructions Patient Education 04/17/2024 10:19:29 Total Knee Replacement, Care After, [facility] Total Knee Replacement, Care After This sheet gives you information about how to care for yourself after your procedure. Your doctor may also give you more specific instructions. If you have problems or questions, contact your doctor. What can I expect after the procedure? After the procedure, it is common to have: Pain. Swelling. A small amount of blood coming from your cut from surgery (incision). Clear fluid coming from your cut from surgery. Limited movement of your knee. Follow these instructions at home: Medicines Take owge-eiq-zochmqa and prescription medicines only as told by your doctor. If you were prescribed a blood thinner (anticoagulant), take it as told by your doctor. Ask your doctor if the medicine prescribed to you: ?Requires you to avoid driving or using heavy machinery. ?Can cause trouble pooping (constipation). You may need to take steps to prevent or treat trouble pooping: ?Drink enough fluid to keep your pee (urine) pale yellow. ?Take xpya-gqc-mqlkgtc or prescription medicines. ?Eat foods that are high in fiber. These include beans, whole grains, and fresh fruits and vegetables. ?Limit foods that are high in fat and sugar. These include fried or sweet foods. Bathing Do not take baths, swim, or use a hot tub until your doctor approves. Ask your doctor if you may take showers. You may only be allowed to take sponge baths. Keep your bandage (dressing) dry until your doctor says it can be taken off. Incision care and drain care Follow instructions from your doctor about how to take care of your cut from surgery. Make sure you: ?Wash your hands with soap and water before and after you change your bandage. If you cannot use soap and water, use hand food counter attendant. ?Change your bandage as told by your doctor. ?Leave stitches (sutures), skin glue, or skin tape (adhesive) strips in place. They may need to stay in place for 2 weeks or longer. If tape strips get loose and curl up, you may trim the loose edges. Do not remove tape strips completely unless your doctor says it is okay. Check your cut from surgery and your drain site every day for signs of infection. Check for: ?More redness, swelling, or pain. ?More fluid or blood. ?Warmth. ?Pus or a bad smell. If you have a drain, follow instructions from your doctor about caring for it. Managing pain, stiffness, and swelling If told, put ice on your knee. ?Put ice in a plastic bag or use the icing device (cold flow pad or cryocuff) that you were given. Follow your doctor's directions about how to use the icing device. ?Place a towel between your skin and the bag or between your skin and the icing device. ?Leave the ice on for 20 minutes, 2 3 times per day. If told, put heat on your knee before you exercise. Use the heat source that your doctor recommends, such as a moist heat pack or a heating pad. ?Place a towel between your skin and the heat source. ?Leave the heat on for 20 30 minutes. ?Remove the heat if your skin turns bright red. This is very important if you are unable to feel pain, heat, or cold. You may have a greater risk of getting burned. Move your toes often. Raise (elevate) your knee above the level of your heart while you are sitting or lying down. ?Use several pillows to keep your leg straight. ?Do not put a pillow just under the knee. If the knee is bent for a long time, this may make the knee stiff. Wear elastic knee support as told by your doctor. Activity Rest as told by your doctor. Do not sit for a long time without moving. Get up to take short walks every 1 2 hours. This is important. Ask for help if you feel weak or unsteady. Ask your doctor what activities are safe for you. Avoid activities that put stress on your knees. These include running, jumping rope, and jumping jacks. Do not play contact sports until your doctor says it is okay. Do exercises as told by your physical therapist. If you have been sent home with a knee joint motion machine (continuous passive motion machine), use it as told by your doctor. Safety Do not use your leg to support your body weight until your doctor says that you can. Use crutches or a walker as told by your doctor. Do not drive until your doctor says it is okay. Ask your doctor when it is safe to drive. General instructions Do not use any products that contain nicotine or tobacco, such as cigarettes, e-cigarettes, and chewing tobacco. These can delay healing. If you need help quitting, ask your doctor. Wear special socks (compression stockings) as told by your doctor. Tell your doctor if you plan to have dental work. Also: ?Tell your dentist about your joint replacement. ?Ask your doctor if there are instructions you need to follow before dental care and routine cleanings. Keep all follow-up visits as told by your doctor. This is important. Contact a doctor if: You have more redness, swelling, or pain around your cut from surgery or your drain. You have more fluid or blood coming from your cut from surgery or your drain. You have pus or a bad smell coming from your cut from surgery or your drain. Your cut from surgery or your drain area feels warm to the touch. You have a fever. Your cut breaks open. You have knee pain that does not go away. The movement of your knee is getting worse. Your new joint feels loose. Get help right away if you have: Pain in your calf or thigh. Swelling in your calf or thigh. Shortness of breath. Trouble breathing. Chest pain. Summary After the procedure, it is common to have pain and swelling, blood or fluid coming from your cut from surgery, and trouble moving your knee. Follow instructions from your doctor about how to take care of your cut from surgery. Use crutches or a walker as told by your doctor. If you were prescribed a blood thinner, take it as told by your doctor. Keep all follow-up visits as told by your doctor. This is important. This information is not intended to replace advice given to you by your health care provider. Make sure you discuss any questions you have with your health care provider. Document Released: 09/10/2012 Document Revised: 10/28/2019 Document Reviewed: 01/31/2019 [employer] Patient Education 2020 [employer] 04/17/2024 08:48:03 5 - [facility] Post-op Instruction 01/2017 (65628) [facility] Post-operative Instructions PLEASE FOLLOW [facility] POST-OP INSTRUCTIONS GIVEN WATCH FOR SIGNS OF INFECTION: call the office ([phone]) if experencing any of the following: (Usually appears 36-48 hours after surgery) Increased temperature (101 degrees Fahrenheit or higher) Redness or swelling Increased uncontrolled pain Foul odor or drainage Calf discomfort Significant swelling Or if having any chest pain, shortness of breath, or difficulty breathing or swallowing call the office or go the nearest Emergency Room. If you have any questions, please call your doctor at the number listed on your follow up instructions. Form: 338A (14242) R: 11/06 Follow Up Care 03/18/2024 07:48:00 With:[facility] Address: [address] [place] [phone] When:04/19/2024 14:30:00 Comments:This is your first physical therapy appointment. Follow-up as scheduled. With:IRASEMA TIMMONS PA-C, Orthopedic Address: [address] [place] [address] [address] [facility], [place] [phone] When:04/29/2024 13:15:00 Comments:This is your post-op appointment. Follow-up as scheduled. With:RUCHI LUCIO DO Address: [address] [place] [address]- When:05/01/2024 09:40:00 Comments:This is your post-hospital follow-up appointment with PCP to monitor your blood pressure. [facility] 04-17-2024 Note Discharge Instructions Thank you for allowing [facility] to assist you with your healthcare needs. The following is important discharge information regarding your hospital visit. Your Care Team Cristofer Haynes MD Your Diagnosis High blood pressure Leukocytosis Osteoarthritis Status post total left knee replacement What to do next Instructions From Your Doctor Your blood pressure has been elevated. Please take your blood pressure twice daily and take log to your PCP appointment. When you take your blood pressure sit in a chair with both feet on the floor, relaxed, and no talking while its being taken. Things that will help your blood pressure include exercise. Exercise is keeping your heart rate elevated over 100 consistently for more than 30 minutes 3-5 times per week. Dietary changes can be improve your blood pressure. Start with focusing on 25-35 grams of fiber(beans, lentils, fruits, vegetables, quinoa, juan francisco seeds) and 70 grams of protein( fish, beans, lentils, nuts, quinoa). You may benefit from a sleep study for possible sleep apnea. Follow Up Appointments Follow Up with [facility] When:04/19/2024 02:30 PM EDT Where:[address] [place] [address]- [phone] Additional Information: This is your first physical therapy appointment. Follow-up as scheduled. Follow Up with IRASEMA TIMMONS PA-C, Orthopedic When:04/29/2024 01:15 PM EDT Where:[address] [facility] [address] [facility], [place] [address] [phone] Additional Information: This is your post-op appointment. Follow-up as scheduled. Follow Up with RUCHI LUCIO DO When:05/01/2024 09:40 AM EDT Where:[address] [place] [address]- Additional Information: This is your post-hospital follow-up appointment with PCP to monitor your blood pressure. The Following Activity and Diet Have Been Ordered for You No qualifying data available. No qualifying data available. The Following Treatments Have Been Ordered for You Discharge Labs No qualifying data available. Discharge Radiology No qualifying data available. Other Therapies No qualifying data available. Post Acute Orders No qualifying data available. Allergies NKA Medications Please ask your primary doctor or pharmacist before taking any other medication not listed, including over the counter drugs, herbal medications, vitamins and or supplements as they may interact with your home medications. What How Much When Why Instructions Last Dose New acetaminophen (Tylenol) 1,000 Milligram by mouth Every 8 hours not to exceed 3000 mg/ day New aspirin 81 Milligram by mouth Twice daily with meals Take 81 mg aspirin twice daily with food for 4 weeks postoperatively for DVT prophylaxis. New docusate-senna (Senokot S 50 mg-8.6 mg oral tablet) 2 tab(s) by mouth Two (2) times a day Duration: 3 Days Take until first bowel movement, then as needed Pickup at [facility]/pharmacy #[id number] New doxycycline (doxycycline hyclate 100 mg oral capsule) 1 cap by mouth Every 12 hours Duration: 14 Days Pickup at [facility]/pharmacy #[id number] New famotidine (Pepcid 20 mg oral tablet) 1 tab(s) by mouth Once a day Pickup at [facility]/pharmacy #3321 New meloxicam (Mobic 7.5 mg oral tablet) 1 tab(s) by mouth Twice daily with meals Do not take any other nonsteroidal anti-inflammatories while on meloxicam/ Mobic. Pickup at [facility]/pharmacy #3321 New oxyCODONE (oxyCODONE 5 mg oral tablet ( IMMEDIATE release )) See instructions Status post total left knee replacement 1-2 tab(s) Oral q4h, As needed for as needed for pain Pickup at [facility]/pharmacy #3321 Pharmacy Information [facility]/pharmacy #[id number]: [id number], [place] [id number] [phone] Please take this list to your next doctor s visit. Bring all medications you take, including over the counter medications, herbals and other supplements with you to your doctor s visit. Patients and families are reminded to discard old lists and to update any records with all medication providers or retail pharmacies. Medication Leaflets famotidine (oral/injection) (fam [place] ti estela) Heartburn Relief, Pepcid, Pepcid AC, Pepcid AC Maximum Strength, Zantac 360 What is the most important information I should know about famotidine? Follow all directions on the label and package. Use exactly as directed. What is famotidine? Famotidine is used to treat and prevent ulcers in the stomach and intestines. It also treats conditions in which the stomach produces too much acid, such as [place]-Toro syndrome. Famotidine also treats gastroesophageal reflux disease (GERD) and other conditions in which acid backs up from the stomach into the esophagus, causing heartburn. The Zantac 360 brand of this medicine does not contain ranitidine, a medicine that was withdrawn from market in the [place]. Famotidine may also be used for purposes not listed in this medication guide. What should I discuss with my healthcare provider before taking famotidine? Heartburn can feel like a heart attack. Get emergency medical help if you have chest pain that spreads to your jaw or shoulder. You should not use this medicine if you are allergic to famotidine or similar medicines such as ranitidine (Zantac), cimetidine (Tagamet), or nizatidine (Axid). Ask a doctor or pharmacist if this medicine is safe to use if you have: kidney disease; liver disease; cancer stomach; or long QT syndrome (in you or a family member). Ask a doctor before using this medicine if you are or . How should I take famotidine? Use exactly as directed on the label, or as prescribed by your doctor. Famotidine oral is taken by mouth. Famotidine injection is given in a vein if you are unable to take the medicine by mouth. You may take famotidine oral with or without food. Measure liquid medicine with the supplied syringe or a dose-measuring device (not a kitchen spoon). Most ulcers heal within 4 weeks of famotidine treatment, but it may take up to 8 weeks of using this medicine before your ulcer heals. Keep using the medication as directed. Call your doctor if the condition you are treating with famotidine does not improve, or if it gets worse while using famotidine. Your treatment may also include changes in diet or lifestyle habits. Follow all instructions of your doctor or dietitian. Store at room temperature away from moisture, heat, and light. Do not allow the liquid medicine to freeze. Throw away any unused famotidine liquid that is older than 30 days. What happens if I miss a dose? Take the medicine as soon as you can, but skip the missed dose if it is almost time for your next dose. Do not take two doses at one time. What happens if I overdose? Seek emergency medical attention or call the Poison Help line at . What should I avoid while taking famotidine? Drinking alcohol may increase the risk of damage to your stomach. Avoid taking other stomach acid reducers unless your doctor has told you to. However, you may take an antacid (such as Maalox, Mylanta, Gaviscon, Milk of Magnesia, Rolaids, or Tums) with famotidine. What are the possible side effects of famotidine? Get emergency medical help if you have signs of an allergic reaction: hives; difficult breathing; swelling of your face, lips, tongue, or throat. Stop using famotidine and call your doctor at once if you have: confusion, hallucinations, agitation, lack of energy; a seizure; fast or pounding heartbeats, sudden dizziness (like you might pass out); or unexplained muscle pain, tenderness, or weakness especially if you also have fever, unusual tiredness, and dark colored urine. Some side effects may be more likely in older adults and in people who have severe kidney disease. Common side effects may include: headache; dizziness; or constipation or diarrhea. This is not a complete list of side effects and others may occur. Call your doctor for medical advice about side effects. You may report side effects to FDA at 5-682-XTG-9162. What other drugs will affect famotidine? Famotidine oral can make it harder for your body to absorb other medicines you take by mouth. Tell your doctor if you are taking: cefditoren; dasatinib; delavirdine; fosamprenavir; or tizanidine (if you are taking famotidine liquid). This list is not complete. Other drugs may affect famotidine, including prescription and tnxb-qdn-improog medicines, vitamins, and herbal products. Not all possible drug interactions are listed here. Where can I get more information? Your doctor or pharmacist can provide more information about famotidine. Remember, keep this and all other medicines out of the reach of children, never share your medicines with others, and use this medication only for the indication prescribed. Every effort has been made to ensure that the information provided by [employer]. ('[employer]') is accurate, up-to-date, and complete, but no guarantee is made to that effect. Drug information contained herein may be time sensitive. [employer] information has been compiled for use by healthcare practitioners and consumers in the [place] and therefore [employer] does not warrant that uses outside of the [place] are appropriate, unless specifically indicated otherwise. [employer] drug information does not endorse drugs, diagnose patients or recommend therapy. [employer] drug information is an informational resource designed to assist licensed healthcare practitioners in caring for their patients and/or to serve consumers viewing this service as a supplement to, and not a substitute for, the expertise, skill, knowledge and judgment of healthcare practitioners. The absence of a warning for a given drug or drug combination in no way should be construed to indicate that the drug or drug combination is safe, effective or appropriate for any given patient. [employer] does not assume any responsibility for any aspect of healthcare administered with the aid of information [employer] provides. The information contained herein is not intended to cover all possible uses, directions, precautions, warnings, drug interactions, allergic reactions, or adverse effects. If you have questions about the drugs you are taking, check with your doctor, nurse or pharmacist. Copyright 5065-3866 [employer]. Version: .. Revision Date: 01/23/2023. meloxicam (oral/injection) (nathalia OKS i jocelin) Anjeso, Mobic, Vivlodex What is the most important information I should know about meloxicam? Meloxicam can increase your risk of fatal heart attack or stroke. Do not use this medicine just before or after heart bypass surgery (coronary artery bypass graft, or CABG). Meloxicam may also cause stomach or intestinal bleeding, which can be fatal. What is meloxicam? Meloxicam is a nonsteroidal anti-inflammatory drug (NSAID) that is used to treat osteoarthritis or rheumatoid arthritis in adults. Meloxicam is also used to treat juvenile rheumatoid arthritis in children who are at least 2 years old. The Anjeso brand of meloxicam is used to treat moderate to severe pain in adults. Vivlodex is for use only in adults. Meloxicam may also be used for purposes not listed in this medication guide. What should I discuss with my healthcare provider before receiving meloxicam? Meloxicam can increase your risk of fatal heart attack or stroke. Do not use this medicine just before or after heart bypass surgery (coronary artery bypass graft, or CABG). Meloxicam may also cause stomach or intestinal bleeding, which can be fatal. Meloxicam may also cause stomach or intestinal bleeding, which can be fatal. These conditions can occur without warning while you are using meloxicam, especially in older adults. You should not use meloxicam if you are allergic to it, or if you ever had an asthma attack or severe allergic reaction after taking aspirin or an NSAID. Tell your doctor if you have ever had: heart disease, high blood pressure, high cholesterol, diabetes, or if you smoke; a heart attack, stroke, or blood clot; ulcers or stomach bleeding; asthma; kidney disease (or if you are on dialysis); liver disease; or fluid retention. If you are , you should not take meloxicam unless your doctor tells you to. Taking an NSAID during the last 20 weeks of can cause serious heart or kidney problems in the unborn baby and possible complications with your . Meloxicam may cause a delay in ovulation (the release of an egg from an ovary). You should not take meloxicam if you are undergoing fertility treatment, or are otherwise trying to get . Ask a doctor if it is safe to breastfeed while using this medicine. Meloxicam is not approved for use by anyone younger than 2 years old. How is meloxicam given? Follow all directions on your prescription label and read all medication guides or instruction sheets. Use the lowest effective dose for your condition. Meloxicam oral is taken by mouth. Meloxicam injection is given as an infusion into a vein. A healthcare provider will give you this injection. Your dose needs may change if you switch to a different brand, strength, or form of this medicine. Avoid medication errors by using only the medicine your doctor prescribes. Meloxicam doses are based on weight (especially in children and teenagers). Your dose needs may change if you gain or lose weight. If you use this medicine long-term, you may need frequent medical tests. Store meloxicam oral suspension, tablets or capsules at room temperature, away from moisture and heat. Keep the bottle tightly closed when not in use. What happens if I miss a dose? Use the medicine as soon as you can, but skip the missed dose if it is almost time for your next dose. Do not use two doses at one time. What happens if I overdose? Seek emergency medical attention or call the Poison Help line at . What should I avoid while receiving meloxicam? Drinking alcohol may increase your risk of stomach bleeding. Avoid taking aspirin while you are taking meloxicam, unless your doctor tells you to. Ask a doctor or pharmacist before using other medicines for pain, fever, swelling, or cold/flu symptoms. They may contain ingredients similar to meloxicam (such as aspirin, ibuprofen, ketoprofen, or naproxen). What are the possible side effects of meloxicam? Get emergency medical help if you have signs of an allergic reaction (hives, difficult breathing, swelling in your face or throat) or a severe skin reaction (fever, sore throat, burning eyes, skin pain, red or purple skin rash with blistering and peeling). Get emergency medical help if you have signs of a heart attack or stroke: chest pain spreading to your jaw or shoulder, sudden numbness or weakness on one side of the body, slurred speech, leg swelling, feeling short of breath. Stop using meloxicam and call your doctor at once if you have: the first sign of any skin rash, no matter how mild; shortness of breath (even with mild exertion); swelling or rapid weight gain; signs of stomach bleeding--bloody or tarry stools, coughing up blood or vomit that looks like coffee grounds; liver problems--nausea, upper stomach pain, itching, tired feeling, flu-like symptoms, loss of appetite, dark urine, david-colored stools, jaundice (yellowing of the skin or eyes); low red blood cells (anemia)--pale skin, unusual tiredness, feeling light-headed, cold hands and feet; or kidney problems--little or no urination, swelling in your feet or ankles, feeling tired or short of breath. Common side effects may include: stomach pain, nausea, vomiting, heartburn; diarrhea, constipation, gas; dizziness; or cold symptoms, flu symptoms. This is not a complete list of side effects and others may occur. Call your doctor for medical advice about side effects. You may report side effects to FDA at 0-184-HQI-2353. What other drugs will affect meloxicam? Ask your doctor before using meloxicam if you take an antidepressant. Taking certain antidepressants with an NSAID may cause you to bruise or bleed easily. Tell your doctor about all your other medicines, especially: cyclosporine; lithium; methotrexate; pemetrexed; sodium polystyrene sulfonate (Kayexalate); a blood thinner (warfarin, Coumadin, Jantoven); heart or blood pressure medication, including a diuretic or 'water pill'; or steroid medicine (such as prednisone). This list is not complete. Other drugs may affect meloxicam, including prescription and ryzb-nzz-sevrufd medicines, vitamins, and herbal products. Not all possible drug interactions are listed here. Where can I get more information? Your doctor or pharmacist can provide more information about meloxicam. Remember, keep this and all other medicines out of the reach of children, never share your medicines with others, and use this medication only for the indication prescribed. Every effort has been made to ensure that the information provided by [employer]. ('[employer]') is accurate, up-to-date, and complete, but no guarantee is made to that effect. Drug information contained herein may be time sensitive. [employer] information has been compiled for use by healthcare practitioners and consumers in the [place] and therefore [employer] does not warrant that uses outside of the [place] are appropriate, unless specifically indicated otherwise. [employer] drug information does not endorse drugs, diagnose patients or recommend therapy. [employer] drug information is an informational resource designed to assist licensed healthcare practitioners in caring for their patients and/or to serve consumers viewing this service as a supplement to, and not a substitute for, the expertise, skill, knowledge and judgment of healthcare practitioners. The absence of a warning for a given drug or drug combination in no way should be construed to indicate that the drug or drug combination is safe, effective or appropriate for any given patient. [employer] does not assume any responsibility for any aspect of healthcare administered with the aid of information [employer] provides. The information contained herein is not intended to cover all possible uses, directions, precautions, warnings, drug interactions, allergic reactions, or adverse effects. If you have questions about the drugs you are taking, check with your doctor, nurse or pharmacist. Copyright 4793-2552 [employer]. Version: 16.01. Revision Date: 09/07/2022. oxycodone (ox i KOE done) Oxaydo, OxyCONTIN, Roxicodone, RoxyBond, Xtampza ER What is the most important information I should know about oxycodone? MISUSE OF OPIOID MEDICINE CAN CAUSE ADDICTION, OVERDOSE, OR . Fatal side effects may occur if you also drink alcohol or use other drugs that cause drowsiness or slow breathing. Using opioid medicine during may cause life-threatening withdrawal symptoms in the . What is oxycodone? Oxycodone is an opioid pain medication used to treat moderate to severe pain. Oxycodone is usually given after other treatments did not work or were not tolerated. Extended-release oxycodone is for eckiza-ofp-zwdtd treatment of severe and chronic pain that requires longer treatment. This medicine is not for use on an as-needed basis. Oxycodone may also be used for purposes not listed in this medication guide. What should I discuss with my healthcare provider before taking oxycodone? You should not use oxycodone if you are allergic to it, or if you have severe asthma, breathing problems or a stomach or bowel obstruction (including paralytic ileus). Tell your doctor if you have ever had: other breathing problems, sleep apnea (breathing that stops during sleep); a head injury, brain tumor, high pressure inside the skull, or seizures, drug or alcohol addiction, or mental illness; if you have used an MAO inhibitor in the past 14 days, such as isocarboxazid, linezolid, methylene blue injection, phenelzine, or tranylcypromine; urination problems, problems with your gallbladder, pancreas, thyroid, or adrenal gland; or liver or kidney disease. Most forms of oxycodone are not approved for use in people under 18 years old. The extended-release tablets should not be given to a child younger than 11 years old. Tell your doctor if you also use stimulant medicine, opioid medicine, herbal products, or medicine for depression, mental illness, Parkinson's disease, migraine headaches, serious infections, or prevention of nausea and vomiting. An interaction with oxycodone could cause a serious condition called serotonin syndrome. May harm an unborn baby. Tell your doctor if you are or plan to become . If you use oxycodone during , your baby could be born with life-threatening withdrawal symptoms, and may need medical treatment for several weeks. Do not breastfeed. Oxycodone in breast milk can cause life-threatening side effects in a nursing baby. Long-term oxycodone may affect fertility in men or women. could be harder to achieve while either parent is using this medicine. How should I take oxycodone? Follow the directions on your prescription label and read all medication guides or instruction sheets. Never use oxycodone in larger amounts, or for longer than prescribed. Tell your doctor if you feel an increased urge to use more of this medicine. Never share opioid medicine with another person, especially someone with a history of drug addiction. MISUSE CAN CAUSE ADDICTION, OVERDOSE, OR . Keep the medicine where others cannot get to it. Selling or giving away this medicine is against the law. Never crush a pill or use the liquid to inhale the mixture or inject it into your vein. This could result in . Your dose needs may change if you switch to a different brand, strength, or form of this medicine. Avoid medication errors by using exactly as directed on the label, or as prescribed by your doctor. Stop taking all other ywhqth-byn-yefwk opioid pain medicines when you start taking extended-release oxycodone. Swallow the extended-release forms whole to avoid exposure to a potentially fatal overdose. Do not crush, chew, break, open, or dissolve. Take the extended-release capsules with food. Read and carefully follow the instructions for use on how to prepare and take this medicine if you cannot swallow extended release capsules whole or you use a feeding tube. Ask your doctor or pharmacist if you don't understand these instructions. Measure liquid medicine with the supplied measuring device (not a kitchen spoon). You may be given other medications to help prevent or treat certain side effects. You may have withdrawal symptoms if you stop using oxycodone suddenly. Ask your doctor before stopping the medicine. Store at room temperature away from moisture and heat. Keep your medicine in a place where no one can use it improperly. Do not keep leftover medicine. Just one dose can cause in someone using it accidentally or improperly. Ask your pharmacist about a drug take-back program, or flush the unused medicine down the toilet. What happens if I miss a dose? Since oxycodone is used for pain, you are not likely to miss a dose. Skip any missed dose if it is almost time for your next dose. Do not use two doses at one time. What happens if I overdose? Seek emergency medical attention or call the Poison Help line at . An overdose can be fatal, especially in a child or person using opioid medicine without a prescription. Your doctor may recommend you get naloxone (a medicine to reverse an opioid overdose) and keep it with you at all times. A person caring for you can give the naloxone if you stop breathing or don't wake up. Your caregiver must still get emergency medical help and may need to perform CPR (cardiopulmonary resuscitation) on you while waiting for help to arrive. Anyone can buy naloxone from a pharmacy or local health department. Make sure any person caring for you knows where you keep naloxone and how to use it. What should I avoid while taking oxycodone? Do not drink alcohol or any products that contain alcohol. Dangerous side effects or could occur. Avoid driving or hazardous activity until you know how this medicine will affect you. Dizziness or drowsiness can causing falls, accidents, or severe injuries. Also avoid getting up too fast from a sitting or lying position, or you may feel dizzy. What are the possible side effects of oxycodone? Get emergency medical help if you have signs of an allergic reaction: hives, difficult breathing, swelling of your face, lips, tongue, or throat. Opioid medicine can slow or stop your breathing, and may occur, especially if you drink alcohol or use other drugs that cause drowsiness or slow breathing. A person caring for you should give naloxone and/or seek emergency medical attention if you have slow breathing with long pauses, blue colored lips, or if you are hard to wake up. Call your doctor at once if you have: slow heart rate, weak pulse, fainting, slow breathing (breathing may stop); chest pain, fast or pounding heartbeats; a seizure, extreme drowsiness; or decreased adrenal gland hormones--nausea, vomiting, stomach pain, loss of appetite, feeling tired or light-headed, muscle or joint pain, skin discoloration, craving salty foods. Serious breathing problems may be more likely in older adults and in those who are debilitated or have wasting syndrome or chronic breathing disorders. Seek medical attention right away if you have symptoms of serotonin syndrome, such as: agitation, hallucinations, fever, sweating, shivering, fast heart rate, muscle stiffness, twitching, loss of coordination, nausea, vomiting, or diarrhea. Common side effects may include: sleep problems (insomnia), itching; drowsiness, headache, dizziness, tiredness; or constipation, stomach pain, nausea, vomiting. This is not a complete list of side effects and others may occur. Call your doctor for medical advice about side effects. You may report side effects to FDA at 8-966-SYZ-9534. What other drugs will affect oxycodone? You may have a fatal oxycodone overdose if you start or stop using certain medicines. Tell your doctor about all your medications. Tell your doctor about all your medications especially if you use medicine to treat HIV, antibiotic, antifungal medication, or seizure medication. Many other drugs can be dangerous when used with opioid medicine. Tell your doctor if you also use: medicine for allergies, asthma, blood pressure, motion sickness, irritable bowel, or overactive bladder; other opioid medicines, a benzodiazepine sedative like Valium, Klonopin, or Xanax; sleep medicine, muscle relaxers, or other drugs that make you drowsy; or drugs that affect serotonin, such as antidepressants, stimulants, or medicine for migraines or Parkinson's disease. This list is not complete and many other drugs may affect oxycodone. This includes prescription and [id number] medicines, vitamins, and herbal products. Not all possible drug interactions are listed here. Where can I get more information? Your doctor or pharmacist can provide more information about oxycodone. Remember, keep this and all other medicines out of the reach of children, never share your medicines with others, and use this medication only for the indication prescribed. Every effort has been made to ensure that the information provided by [employer]. ('[employer]') is accurate, up-to-date, and complete, but no guarantee is made to that effect. Drug information contained herein may be time sensitive. [employer] information has been compiled for use by healthcare practitioners and consumers in the [place] and therefore [employer] does not warrant that uses outside of the [place] are appropriate, unless specifically indicated otherwise. [employer] drug information does not endorse drugs, diagnose patients or recommend therapy. [employer] drug information is an informational resource designed to assist licensed healthcare practitioners in caring for their patients and/or to serve consumers viewing this service as a supplement to, and not a substitute for, the expertise, skill, knowledge and judgment of healthcare practitioners. The absence of a warning for a given drug or drug combination in no way should be construed to indicate that the drug or drug combination is safe, effective or appropriate for any given patient. [employer] does not assume any responsibility for any aspect of healthcare administered with the aid of information [employer] provides. The information contained herein is not intended to cover all possible uses, directions, precautions, warnings, drug interactions, allergic reactions, or adverse effects. If you have questions about the drugs you are taking, check with your doctor, nurse or pharmacist. Copyright 8024-1893 [employer]. Version: 17.. Revision Date: 07/25/2023. docusate and senna (DOK yohan sate and SEN a) Colace 2-in-1, Senexon-S, Senna Plus, Senna S, Senna-Time S, Senokot S, SenoSol-SS, Stool Softener + Stimulant Laxative, Stool Softener with Laxative What is the most important information I should know about docusate and senna? Use exactly as directed on the label, or as prescribed by your doctor. What is docusate and senna? Docusate is a stool softener. Senna is a laxative. Docusate and senna is a combination medicine used to treat occasional constipation. Docusate and senna may also be used for purposes not listed in this medication guide. What should I discuss with my healthcare provider before using docusate and senna? You should not use this medicine if you are allergic to docusate or senna, or if you are also taking mineral oil. Ask a doctor or pharmacist if this medicine is safe to use if you have ever had: nausea or vomiting; stomach pain; a sudden change in bowel habits that lasts for 2 weeks or longer; or an intestinal disorder such as Crohn's disease or ulcerative colitis. Ask a doctor before using this medicine if you are or . Do not give this medicine to a child younger than 2 years old without medical advice. How should I use docusate and senna? Use exactly as directed on the label, or as prescribed by your doctor. Take docusate and senna with a full glass of water. It may be best to take this medicine at night or at bedtime. Docusate and senna should cause you to have a bowel movement within 6 to 12 hours. Do not take docusate and senna for longer than 7 days in a row, unless your doctor tells you to. Call your doctor if your constipation does not improve or if it gets worse after taking docusate and senna. Store at room temperature away from moisture and heat. What happens if I miss a dose? Since docusate and senna is used when needed, you may not be on a dosing schedule. Skip any missed dose if it's almost time for your next dose. Do not use two doses at one time. What happens if I overdose? Seek emergency medical attention or call the Poison Help line at . Overdose symptoms may include nausea, vomiting, stomach pain, or diarrhea. What should I avoid while using docusate and senna? Ask a doctor or pharmacist before using any other laxative or other stool softener that may contain ingredients similar to docusate or senna. What are the possible side effects of docusate and senna? Get emergency medical help if you have signs of an allergic reaction: hives; difficulty breathing; swelling of your face, lips, tongue, or throat. Stop using docusate and senna and call your doctor at once if you have: rectal bleeding; severe stomach pain, nausea, vomiting; or no bowel movement. Common side effects may include: gas, bloating; diarrhea; or mild nausea. This is not a complete list of side effects and others may occur. Call your doctor for medical advice about side effects. You may report side effects to FDA at 0-881-QBK-4813. What other drugs will affect docusate and senna? Other drugs may affect docusate and senna, including prescription and poau-imd-[id number] medicines, vitamins, and herbal products. Tell your doctor about all your current medicines and any medicine you start or stop using. Where can I get more information? Your pharmacist can provide more information about docusate and senna. Remember, keep this and all other medicines out of the reach of children, never share your medicines with others, and use this medication only for the indication prescribed. Every effort has been made to ensure that the information provided by [employer]. ('[employer]') is accurate, up-to-date, and complete, but no guarantee is made to that effect. Drug information contained herein may be time sensitive. [employer] information has been compiled for use by healthcare practitioners and consumers in the [place] and therefore [employer] does not warrant that uses outside of the [place] are appropriate, unless specifically indicated otherwise. [employer] drug information does not endorse drugs, diagnose patients or recommend therapy. [employer] drug information is an informational resource designed to assist licensed healthcare practitioners in caring for their patients and/or to serve consumers viewing this service as a supplement to, and not a substitute for, the expertise, skill, knowledge and judgment of healthcare practitioners. The absence of a warning for a given drug or drug combination in no way should be construed to indicate that the drug or drug combination is safe, effective or appropriate for any given patient. [employer] does not assume any responsibility for any aspect of healthcare administered with the aid of information [employer] provides. The information contained herein is not intended to cover all possible uses, directions, precautions, warnings, drug interactions, allergic reactions, or adverse effects. If you have questions about the drugs you are taking, check with your doctor, nurse or pharmacist. Copyright 5308-6557 [employer]. Version: 5.01. Revision Date: 02/06/2023. doxycycline (oral/injection) (DOX ardha montes) Acticlate, Adoxa, Alodox, Avidoxy, Doryx, Doryx MPC, Lymepak, Mondoxyne NL, Monodox, Morgidox, Morgidox [id number], Morgidox [id number], O[place]bo, Oracea, Targadox, Vibramycin, Vibramycin Monohydrate What is the most important information I should know about doxycycline? You should not take this medicine if you are allergic to any tetracycline antibiotic. Children younger than 8 years old should use doxycycline only in cases of severe or life-threatening conditions. This medicine can cause permanent yellowing or graying of the teeth in children Using doxycycline during could harm the unborn baby or cause permanent tooth discoloration later in the baby's life. What is doxycycline? Doxycycline is a tetracycline antibiotic that Doxycycline is used to treat many different bacterial infections, such as acne, urinary tract infections, intestinal infections, eye infections, gonorrhea, chlamydia, periodontitis (gum disease), and others. Doxycycline is also used to treat blemishes, bumps, and acne-like lesions caused by rosacea. Doxycycline will not treat facial redness caused by rosacea. Some forms of doxycycline are used to prevent malaria, to treat anthrax, or to treat infections caused by mites, ticks, or lice. Doxycycline may also be used for purposes not listed in this medication guide. What should I discuss with my healthcare provider before taking doxycycline? You should not take this medicine if you are allergic to doxycycline or other tetracycline antibiotics such as demeclocycline, minocycline, tetracycline, or tigecycline. Tell your doctor if you have ever had: liver disease; kidney disease; asthma or sulfite allergy; increased pressure inside your skull; or if you also take isotretinoin, seizure medicine, or a blood thinner such as warfarin (Coumadin). If you are using doxycycline to treat gonorrhea, your doctor may test you to make sure you do not also have syphilis, another sexually transmitted disease. Taking this medicine during may affect tooth and bone development in the unborn baby. Taking doxycycline during the last half of can cause permanent tooth discoloration later in the baby's life. Tell your doctor if you are or if you become . Doxycycline can make control pills less effective. Ask your doctor about using a non-hormonal control (condom, diaphragm with spermicide) to prevent . Doxycycline can pass into breast milk and may affect bone and tooth development in a nursing infant. Do not breastfeed while you are taking doxycycline. Doxycycline can cause permanent yellowing or graying of the teeth in children younger than 8 years old. Children should use doxycycline only in cases of severe or life-threatening conditions such as anthrax or [place] spotted fever. The benefit of treating a serious condition may outweigh any risks to the child's tooth development. How should I take doxycycline? Follow all directions on your prescription label and read all medication guides or instruction sheets. Use the medicine exactly as directed. Take doxycycline with a full glass of water. Drink plenty of liquids while you are taking doxycycline. Read and carefully follow any Instructions for Use provided with your medicine. Ask your doctor or pharmacist if you do not understand these instructions. Most brands of doxycyline may be taken with food or milk if the medicine upsets your stomach. Different brands of doxycycline may have different instructions about taking them with or without food. Take Oracea on an empty stomach, at least 1 hour before or 2 hours after a meal. You may need to split a doxycycline tablet to get the correct dose. Follow your doctor's instructions. Swallow a delayed-release capsule or tablet whole. Do not crush, chew, break, or open it. Measure liquid medicine with the dosing syringe provided, or with a special dose-measuring spoon or medicine cup. If you do not have a dose-measuring device, ask your pharmacist for one. If you take doxycycline to prevent malaria: Start taking the medicine 1 or 2 days before entering an area where malaria is common. Continue taking the medicine every day during your stay and for at least 4 weeks after you leave the area. Doxycycline is usually given by injection only if you are unable to take the medicine by mouth. A healthcare provider will give you this injection as an infusion into a vein. Use this medicine for the full prescribed length of time, even if your symptoms quickly improve. Skipping doses can increase your risk of infection that is resistant to medication. Doxycycline will not treat a viral infection such as the flu or a common cold. Store at room temperature away from moisture, heat, and light. Throw away any unused medicine after the expiration date on the label has passed. Using doxycycline can cause damage to your kidneys. What happens if I miss a dose? Take the medicine as soon as you can, but skip the missed dose if it is almost time for your next dose. Do not take two doses at one time. What happens if I overdose? Seek emergency medical attention or call the Poison Help line at . What should I avoid while taking doxycycline? Do not take iron supplements, multivitamins, calcium supplements, antacids, or laxatives within 2 hours before or after taking doxycycline. Avoid taking any other antibiotics with doxycycline unless your doctor has told you to. Doxycycline could make you sunburn more easily. Avoid sunlight or tanning beds. Wear protective clothing and use sunscreen (SPF 30 or higher) when you are outdoors. Antibiotic medicines can cause diarrhea, which may be a sign of a new infection. If you have diarrhea that is watery or bloody, call your doctor. Do not use anti-diarrhea medicine unless your doctor tells you to. What are the possible side effects of doxycycline? (more content not included)... [facility] 04-17-2024 Pastoral care Progress note Pastoral Care Note Entered On: 04/17/2024 9:21 EDT Performed On: 04/17/2024 9:18 EDT by Og Daily Pastoral Care Type of Pastoral Visit : Initial visit Spiritual Care Visit Initiated by : Manager Environmental Affairs Spiritual Care Reason for Visit : General Spiritual Assessment : Not using [employer] Spiritual Care Emotional Assessment : Accepting of Situation, Optimistic, Has Support Network Spiritual Care Intervention : Supportive presence Spiritual Outcomes : Embraces Present Moment Spiritual Plan of Care : No Further Action Pastoral Care Comments : patient states that he is doing well and hopeful about the outcome since he had been living with pain; pt is given encouragement to do his therapy; pt states that he has family help; pt declines further support Pastoral Care Visit Length : 5 minute(s) Og Daily - 04/17/2024 9:18 EDT Digitally Signed by Og Daily on 04/17/2024 09:18 AM [facility] Leonashay Denise 04-17-2024 Note Date of Service April 17, 2024 Subjective The patient was sitting in bed eating breakfast upon examination. Patient denies any chest pain, shortness of breath, dizziness, lightheadedness, nausea or vomiting, or calf pain. No adverse overnight events. Pain has been controlled on medications. Patient overall is doing well and has no significant complaints. He has had some elevated blood pressure readings. He takes no medications at home and has no medical problems. He denies any chest pain or racing of the heart. Patient is doing well today. Objective Vitals and Measurements T: 36.7 C (Oral) TMIN: 36.3 C (Oral) TMAX: 36.9 C (Oral) HR: 90 (Monitored) RR: 20 BP: 148/97 SpO2: 98% HT: 177.8 cm WT: 131.8 kg BMI: 41.69 Intake and Output 7AM Yesterday to 7AM Today Intake and Output (Last 24 hours) Intake Administration Information 825.55 Oral Intake 480.00 Supplement Intake 600.00 Output Intra-Op EBL 50.00 Urine Count 4.00 Total Summary Total Intake 1905.55 Total Output 50.00 Fluid Balance 1855.55 Physical Exam Vital signs stable, afebrile SCD's and LAILA Hose in place bilaterally Patient is able to plantarflex and dorsiflex actively Sensation is intact to saphenous, sural, superficial and deep peroneal, and tibial distribution Mepilex dressing has some trace drainage over the very distal portion, trace drainage over the distal pin site dressing Negative signs and symptoms of DVT, negative Homans bilaterally Weight Dosing Weight: 131.8 kg (04/16/24) Dosing Weight: 131.8 kg (04/16/24) Medications Medications (22) Active Scheduled: (11) acetaminophen 500 mg Tablet 1,000 mg 2 tab(s), Oral, q8h aspirin 81 mg EC 81 mg 1 tab(s), Oral, BIDM bisacodyl 5 mg EC tablet 10 mg 2 tab(s), Oral, Once docusate sodium 100 mg Capsule 100 mg 1 cap(s), Oral, BID docusate-senna (Senokot S) 50 mg-8.6 mg Tablet 2 tab(s), Oral, BID doxycycline hyclate 100 mg Capsule 100 mg 1 cap(s), Oral, q12h famotidine 20 mg tablet 20 mg 1 tab(s), Oral, qDay Lactated Ringers Injection 1000 mL * Bolus * 1,000 mL, IV Bolus, PREOP pharm magnesium hydroxide 8% Suspension 30 mL UD 30 mL, Oral, Daily meloxicam 7.5 mg tablet 7.5 mg 1 tab(s), Oral, BIDM multivitamin (Myadec) with minerals Therapeutic Multiple Vitamins with Minerals Tablet 1 tab(s), Oral, qDayM Continuous: (1) Lactated Ringers 1000 mL 1,000 mL, Intravenous, 100 mL/hr PRN: (10) acetaminophen 325 mg Tablet 650 mg 2 tab(s), Oral, q4h diphenhydramine 25 mg tablet 25 mg 1 tab(s), Oral, q6h diphenhyDRAMINE 50 mg/mL (1 mL) INJ 25 mg 0.5 mL, IV Push, q6h ketorolac 30 mg/mL (1 mL) vial 15 mg 0.5 mL, IV Push, q6h morphine 2 mg/mL 1 mL syringe 2 mg 1 mL, IV Push, q1h ondansetron 2 mg/ 1 mL 2 mL INJ 4 mg 2 mL, IV Push, q8h oxycodone 5 mg tablet (immediate release) 5 mg 1 tab(s), Oral, q4h oxycodone 5 mg tablet (immediate release) 10 mg 2 tab(s), Oral, q4h prochlorperazine 10 mg/2 mL vial 5 mg 1 mL, IV Push, q6h sodium biphosphate-sodium phosphate 19 gm-7 gm Enema 133 mL, Rectal, qDay Lab Results 04/17 05:16 WBC: 16.1 H Hgb: 14.8 Hct: 43.6 Platelet: 217 Neutrophil %: 85.3 H Glucose Level: 156 H Sodium Level: 139 Potassium Level: 4.8 BUN: 19 H Creatinine Lvl (s): 0.88 EKG No qualifying data available. Assessment/Plan Leukocytosis Osteoarthritis 1. Status post robotic assisted left total knee arthroplasty postop day #1 2. Continue pain medications: Tylenol, meloxicam, oxycodone. Do not take any other nonsteroidal anti-inflammatories while on meloxicam/Mobic. 3. DVT prophylaxis: Take 81 mg aspirin twice daily with food for 4 weeks postoperatively for DVT prophylaxis. Patient denies past history of DVT or pulmonary embolism. 4. Physical therapy: Weightbearing as tolerated with walker 5. H & H: 14.8/43.6, asymptomatic. Overall labs are stable 6. Reactive Leukocytosis: currently 16.1, afebrile. Patient did receive decadron intra-operatively. No clinical signs of infection. 7. Patient will continue with doxycycline for 2 weeks postoperatively due to elevated BMI greater than 40.0. I discussed with the patient potential side effects with the doxycycline including hypersensitivity to the sunlight and must take appropriate precautions. Also recommended probiotic while taking the antibiotic for 2 weeks postoperatively. Patient voiced understanding and agreement. 8. Encouraged incentive spirometry 9. Continue postoperative medical management per medicine 10. Postoperative constipation: Discussed with the patient to continue stool softener until first bowel movement. After first bowel movement patient can then take as needed. They were also instructed that if they are not able to have a bowel movement within 3 days they are to contact our office for change of medication. Patient voiced understanding. 11. Disposition: Plan will be for discharge home today as long as patient remains medically stable, tolerates therapy, and pain is adequately controlled. Case was discussed with medicine and we will have the patient follow back with the primary care physician in approximately 12 to 14 days for monitoring of blood pressure. Patient has no listed medical problems. Takes no medications at home. Denies past concern for any blood pressure issues. Patient does have outpatient physical therapy established. He will follow-up per postoperative instructions. He would like his medications E scribed to [facility] in [facility]. Upon discharge he will contact our office with any concerns or questions. I have reviewed the [place] Automated Rx Reporting System (OARRS) report for this patient for refill pattern and other prescriber involvement as part of the appropriate surveillance for the provision of acute and chronic controlled medications. The report was requested and reviewed on the date of this entry, and was considered in the prescribing process This dictation was created using voice recognition software. Phonetic and/or grammatical errors may exist. Digitally Signed by OG GREGORIO PA-C on 04/17/2024 08:47 AM [facility] 04-16-2024 Note ORIGINAL EXAMINATION: TWO XRAY VIEWS OF THE LEFT KNEE04/16/2024 9:26 am COMPARISON: CT 03/31/2024 HISTORY: Reason for exam: Status post arthroplasty FINDINGS: Total right knee arthroplasty. Alignment is anatomic. No radiographic evidence of hardware malfunction. Expected recent postoperative changes with surgical jessi overlying the midline knee, soft tissue swelling most notably anteriorly, and subcutaneous gas as well as gas within the knee joint. Small suprapatellar joint effusion. No periprosthetic fracture or other acute fracture. IMPRESSION: Total right knee arthroplasty with immediate postoperative changes. I have personally reviewed the images of this examination and agree with the resident's findings and interpretation. Interpreted by: Thee Tony MD Preliminary Report By: Harry Peña Electronically signed By Thee Tony MD Dictated Date: 04/16/2024 9:46:20 AM Prelim Date: 04/16/2024 10:12:44 AM Sign Date: 04/16/2024 10:12:44 AM Ordering Provider: [facility] 04-16-2024 Anesthesiology Consult note Patient: INDIRA MCCORMACK Jr Age: 58 years Sex: Male : 1965 Associated Diagnoses: None Author: LYUBOV RUST APRN-ENVIRONMENTAL PROTECTION SPECIALIST Preoperative Information Anesthesia history Patient's history: negative. Family's history: negative. Health Status Allergies: Allergic Reactions (Selected) NKA, Allergies (1) ActiveSeverityReaction NKANone Documented Current medications: (Selected) Inpatient Medications Ordered Betadine 10% topical solution: 17.5 mL, mL/hr, Topical (INT), PREOP pharm Bicitra: 30 mL, Oral, PREOP pharm Bolus LR 1000 mL: 1,000 mL, IV Bolus, PREOP pharm Decadron: 10 mg, 1 mL, IV Push, AsDirected Kefzol: 3 gram(s), 100 mL/hr, IV Piggyback, PREOP pharm LR 1,000 mL: 20 mL/hr, Intravenous, Stop: 04/16/24 23:59:00 EDT Naropin 25 mg + Toradol 15 mg + morphine 2.5 mg + EPINEPHrine 0.3 m mg, 5 mL, mL/hr, Other, PREOP pharm Naropin 25 mg + Toradol 15 mg + morphine 2.5 mg + EPINEPHrine 0.3 m mg, 5 mL, mL/hr, Other, PREOP pharm tranexamic acid 1 g / 100 mL 0.7% NaCl PMX: 1 gram(s), 100 mL, 300 mL/hr, IV Piggyback, AsDirected tranexamic acid 1 g / 100 mL 0.7% NaCl PMX: 1 gram(s), 100 mL, 300 mL/hr, IV Piggyback, AsDirected Documented Medications Documented meloxicam 15 mg oral tablet: 15 mg, 1 tab(s), Oral, qDay, 30 tab(s), 0 Refill(s), Medications (10) Active Scheduled: (9) ceFAZolin 3 gram(s), IV Piggyback, PREOP pharm citric acid-sodium citrate 334 mg-500 mg/5 mL (30 mL) Flora UD 30 mL, Oral, PREOP pharm dexamethasone 10 mg/mL (1mL) SDV 10 mg 1 mL, IV Push, AsDirected Lactated Ringers Injection 1000 mL * Bolus * 1,000 mL, IV Bolus, PREOP pharm povidone iodine topical 17.5 mL, Topical (INT), PREOP pharm ropivacaine 25 mg + ketorolac 15 mg + morphine 2.5 mg + epinephrine 0.3 mg 25 mg 5 mL, Other, PREOP pharm ropivacaine 25 mg + ketorolac 15 mg + morphine 2.5 mg + epinephrine 0.3 mg 25 mg 5 mL, Other, PREOP pharm tranexamic acid PMX 1 gram(s) 100 mL, IV Piggyback, AsDirected tranexamic acid PMX 1 gram(s) 100 mL, IV Piggyback, AsDirected Continuous: (1) Lactated Ringers 1,000 mL 1,000 mL, Intravenous, 20 mL/hr PRN: (0) Problem list: Active Problems (1) OA (osteoarthritis) Histories Past Medical History: No active or resolved past medical history items have been selected or recorded. Family History: Stroke Mother Procedure history: Arthroscopy of shoulder ([id number]). Comments: 03/21/2024 15:01 Irena Staples RN bilateral Primary repair of inguinal hernia ([id number]). CE - Cataract extraction ([id number]). 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 Lives In Single level home Current Home Treatments None Special Services and Community Resources None Spouse Name Sarah Marital Status of Patient if Patient Independent Adult: Nutrition/Health 04/16/2024 Type of diet: Regular Appetite Good Eating Difficulties None Skin Breakdown/Decubitus Ulcers No Physical Examination Vital Signs 04/16/2024 6:03 EDT Peripheral Pulse Rate 90 bpm Respiratory Rate 14 br/min Systolic Blood Pressure Non-Invasive 143 mmHg HI Diastolic Blood Pressure Non-Invasive 84 mmHg Vital Signs (last 24 hrs) Last Charted SBPH 143 mmHg (APR 16 06:03) DBP84 mmHg (APR 16 06:03) Measurements from flowsheet : Measurements 04/16/2024 6:03 EDT Height 177.8 cm Admission Weight 131.8 kg [place] Body Weight 73.00 kg Pain assessment: Pain Assessment 04/16/2024 6:45 EDT Primary Pain Intensity 0 04/16/2024 6:03 EDT Primary Pain Intensity 0 Pain Scale Type 0-10 Pain scale . General: Alert and oriented. Airway: Normal temporomandibular joint mobility. Mallampati classification: II (soft palate, fauces, uvula visible). Dentition Evaluation: Denies loose/chipped teeth. Respiratory: Lungs are clear to auscultation, Respirations are non-labored. Cardiovascular: Normal rate, Regular rhythm. Neurologic: Alert, Oriented. Review / Management Results review: No qualifying data available , Lab results 04/16/2024 6:48 EDT Continuous IV Infusions lr Hand Right 04/16/2024 20 gauge Peripheral IV Activity: Insert new site Peripheral IV Dressing Condition: Clean, Dry, Intact Peripheral IV Dressing Activity: Applied, Transparent dressing Peripheral IV Line Status/Patency: Flushes easily, Continuous infusion Peripheral IV Line Care: Secured with tape Peripheral IV Site Condition: No complications Peripheral IV Equipment: Extension set, PRN Adaptor Peripheral IV Number of Attempts: 1 04/16/2024 6:45 EDT Primary Pain Intensity 0 celecoxib 400 mg mg oxyCODONE 10 mg mg 04/16/2024 6:38 EDT famotidine 20 mg mg 04/16/2024 6:03 EDT Height 177.8 cm Admission Weight 131.8 kg [place] Body Weight 73.00 kg Peripheral Pulse Rate 90 bpm Respiratory Rate 14 br/min Systolic Blood Pressure Non-Invasive 143 mmHg HI Diastolic Blood Pressure Non-Invasive 84 mmHg Primary Pain Intensity 0 Pain Scale Type 0-10 Pain scale Heart Rhythm Regular Dorsalis Pedis Pulse, Left 2+ Normal Dorsalis Pedis Pulse, Right 2+ Normal Respirations Unlabored Respiratory Pattern Regular Breath Sounds Auscultated Anterior only All Lobes Breath Sounds Clear, Equal Oxygen Therapy Room air Abdomen Description Symmetric, Soft, Rounded Abdomen Palpation Non-Tender, Soft Bowel Sounds All Quadrants Present Urinary Elimination Voiding, no difficulties Skin Temperature Warm Skin Description [place], Normal for ethnicity, Dry Skin Integrity Intact Mucous Membrane Color [place] IV Present Present Neurological Symptoms Patient denies Extremity Movement Equal Characteristics of Speech Clear Level of Consciousness Alert Strength All Extremities Strong Tone All Extremities Normal Sensation All Extremities Intact Affect/Behavior Appropriate, Calm, Cooperative Orientation Oriented x 4 Allergies Yes Anesthesia Extension Set Applied Yes Consent Form Signed Yes Patient Dressed In Hospital gown, No undergarments Pre-op Preparation Shave prep done by clippers, Undergarments removed CHG Preoperative Wash/Wipe Night before procedure, Day of procedure, Site specific wipe Preop Nasal Swab Povidone-Iodine History & Physical Update On Chart Yes History & Physical On Chart Yes Obstructive Sleep Apnea Assess Completed Yes Assistive Device None Positioning Repositions self Activity Status ADL Awake, Resting Sequential Compression Device right knee high applied/on Antiembolism Stocking On/Re-applied right thigh high NPO Status confirmed Standard Safety ID band on, Call device within reach, Bed in low position, Wheels locked, personal items within reach, Visitor at bedside, Non-Slip footwear Allergy Band on and Verified Yes Patient ID Band on and Verified Yes Implants Verified Yes Pacemaker/AICD Verified Yes Site Verified by Patient/Family Yes Anesthesia Consent Signed Yes Blood Consent Signed Yes Last Fluid Intake 04/15/2024 20:00 Last Food Intake 04/15/2024 20:00 Last Void 04/16/2024 5:00 04/16/2024 6:01 EDT Designated Person #1 We May Share ISAURO Mccormack [phone] Designated Person #1 Relationship Spouse Privacy Restrictions Requested None Status N/A Sensory Deficits None Sleep Apnea Snore No Sleep Apnea Tired No Sleep Apnea Obstruction No Sleep Apnea Pressure No Sleep Apnea BMI Yes Sleep Apnea Age Yes Sleep Apnea Neck Yes Sleep Apnea Gender Yes Sleep Apnea Score 4 Diagnosed With Sleep Apnea No Advanced Directives No - refuses information Infectious Disease Symptoms Patient states no symptoms Infectious Disease Recent Exposure No Alcohol and Drug Use No Employee of Institutional Living No Health Care Employee No History of Exposure to TB No History of Positive Chest X-Ray for TB No History of Positive TB Skin Test No Homeless No Known Immunosuppression No Recent Immigrant No Resident of Institutional Living No Bloody Sputum No Fatigue No Fever No Loss of Appetite No Night Sweats No Persistent Cough > 3 Weeks No Weight Loss No Pre-Op Patient Education NPO after midnight, No jewelry, Responsible Democrat, Aware of surgery location, Pre-op education done, 2 bottles CHG wash with instructions given, No ordered medications, Total Joint Replacement/Colorectal Book Given SN - Preprocedure Comments Spoke with patient, Verbalizes/Nonverbally indicates understanding Barriers to Learning None evident Teaching Method Explanation, Printed materials Preferred Spoken Language Yakut Preferred Written Language Yakut Teaching Evaluation No further teaching needed Safety Brochure Information Reviewed Yes [facility] Video Viewed No Patient's Current Physicians Patient's Current Physicians History of Malignant Hyperthermia No Discharge To, Anticipated Home independently Prev Test Positive/Diagnosis w/COVID-19 Yes Previous COVID-19 Positive Date 2020 Current Quarantine/Isolated any Illness No Any Contact with Sick Animals/Birds No Traveled Anywhere in Last 30 Days No Lost Weight Unintentionally Recently No Eat Poorly Due to Decreased Appetite No Total MST Score 0 N/A Personal Devices, Patient Valuables None Anesthesia/Transfusions Prior anesthesia Admission Note-Nursing Same Day Patient History . Assessment and Plan [place] [employer] (ASA) physical status classification: Class III. Anesthetic Preoperative Plan Anesthetic technique: Spinal. Regional: Spinal. Postoperative pain management: adductor canal block. Risks discussed: nausea, vomiting, headache, hypotension, allergic reaction, serious complications. Informed consent: signed by patient. Digitally Signed by LYUBOV RUST on 04/16/2024 06:53 AM [facility] 06-10-2021 Note Patient Outreach (NE TNAV) INDIRA MCCORMACK ([id number]) 1965 M Date Time Provider Department 06/10/21 RUBEN SERRANO During your visit today, we recorded the following information about you: Ruben Serrano Population Health Navigator 06/10/2021 8:55 AM Signed POPULATION HEALTH NAVIGATION OUTREACH Action/FYI I spoke with patient he states he doesn't know who he wants I told him I will send him a letter with the pcp link. I also offered him to activate his my chart he didn't want too. No care everywhere Contact made with patient or family member? YES Pt identified by name and : YES Outreach Outcome/Action Spoke to patient or caregiver: Patient will return the call or ask for return call Reason for Outreach Attribution: Provider Off-boarding Payer: Payor: DIEGO / Plan: BLUE CARD PPO OOS / Product Type: PPO / Care Gap Reviewed:: Reminder: Reminder note to check Health Maintenance for items below Health Maintenance items due: COVID-19 VACCINE(1) Never done HEPATITIS C SCREENING Never done HIV SCREENING Never done LIPID SCREEN Never done SHINGRIX VACCINE(1 of 2) Never done DTAP,TDAP,TD(2 - Tdap) due on 06/02/2014 DIABETES SCREEN due on 08/14/2016 DEPRESSION SCREENING due on 11/16/2017 INFLUENZA(1) Never done Advanced Directives Completed: Have you ever planned for future healthcare decisions with a power of civil litigation attorney, living will, or advance directives? No. Please bring a copy to your next appointment or email to Referrals: N/A Message Sent to Practice: NO Navigation Signature: Ruben Serrano Population Health Navigator June 10, 2021 8:51 AM Allergies As of Date: 06/10/2021 (No Known Allergies) Date Reviewed: 02/07/2020 Reviewed by: Iman Kahn - Fully Assessed Reason for Visit: Population Health Navigation Outreach [3910] Cmt: Offboarding Prescriptions as of 06/10/2021 - ciprofloxacin-dexamethasone (CIPRODEX) otic suspension Use 4 Drops in both ears twice daily. - fluticasone (FLONASE) 50 mcg/actuation nasal spray Use 2 Sprays in each nostril once daily. Meds Comments as of 06/28/2019: Uses ibuprofen prn Pharmacy - [facility] [place] Problem List As Of Date 06/10/2021 Noted Resolved Umbilical hernia [K42.9] 05/02/2013 Obesity, Class III, BMI 40-49.9 (morbid obesity*05/02/2013 Screening PSA (prostate specific antigen) [Z12.*12/29/2016 Lump in scrotum [N50.89] 12/29/2016 Spermatocele [N43.40] 02/09/2018 Letter Text Encounter Status:Closed by [facility] EMERGENCY DEPARTMENT HEALTH NAVIGATOR, RUBEN Chacko on 06/10/21 [facility] 06-10-2021 Note HNO ID: [id number] Author: Ruben Serrano Population Health Navigator Service: ? Author Type: ? Type: Progress Notes Filed: 06/10/2021 8:55 AM Note Text: POPULATION HEALTH NAVIGATION OUTREACH Action/FYI I spoke with patient he states he doesn't know who he wants I told him I will send him a letter with the pcp link. I also offered him to activate his my chart he didn't want too. No care everywhere Contact made with patient or family member? YES Pt identified by name and : YES Outreach Outcome/Action Spoke to patient or caregiver: Patient will return the call or ask for return call Reason for Outreach Attribution: Provider Off-boarding Payer: Payor: DIEGO / Plan: BLUE CARD PPO OOS / Product Type: PPO / Care Gap Reviewed:: Reminder: Reminder note to check Health Maintenance for items below Health Maintenance items due: COVID-19 VACCINE(1) Never done HEPATITIS C SCREENING Never done HIV SCREENING Never done LIPID SCREEN Never done SHINGRIX VACCINE(1 of 2) Never done DTAP,TDAP,TD(2 - Tdap) due on 06/02/2014 DIABETES SCREEN due on 08/14/2016 DEPRESSION SCREENING due on 11/16/2017 INFLUENZA(1) Never done Advanced Directives Completed: Have you ever planned for future healthcare decisions with a power of civil litigation attorney, living will, or advance directives? No. Please bring a copy to your next appointment or email to [email or web address] Referrals: N/A Message Sent to Practice: NO Navigation Signature: Ruben Serrano Population Health Navigator June 10, 2021 8:51 AM [facility] Evaluation + Plan note Future Appointments [facility] Hospital course Narrative No data available for this section [facility] Hospital Discharge instructions No data available for this section [facility] Progress note No data available for this section [facility] Summary Purpose Family History No Family History Records Found No data available for this section No data available for this section No data available for this section No Family History Records Found Advance Directives No Advanced Directives Records FoundNo Advanced Directives Records Found Additional Source Comments (unrecognized sect ion and content) No Status Records FoundNo Status Records Found INFORMATION SOURCE (unrecogn ized section and content) DATE CREATED AUTHOR 08/03/2021 [facility] DATE CREATED AUTHOR AUTHOR'S ORGANIZ ATION 04/21/2024 [facility] Patient Care team informatio n (unrecognized section and content) Care Team Personnel Name: RUCHI LUCIO DO Member Role: Primary Care Physician Address: Address: [address] [place] [id number]- [place] Care Team Related Persons Name: SARAH MCCORMACK FOR RECORDS PERTAINING TO PATIENTS WHO ARE OR HAVE BEEN ENROLLED IN A CHEMICAL DEPENDENCY/SUBSTANCEABUSE PROGRAM, SOME INFORMATION MAY BE OMITTED. This clinical summary was aggregated from multiple sources. Caution should be exercised in using it in the provision of clinical care. This summary normalizes information from multiple sources, and as a consequence, information in this document may materially change the coding, format and clinical context of patient data. In addition, data may be omitted in some cases. CLINICAL DECISIONS SHOULD BE BASED ON THE PRIMARY CLINICAL RECORDS. [facility]. provides no warranty or guarantee of the accuracy or completeness of information in this document.
[2024-05-01 12:42] LABS: AST(SGOT) 14 U/L (15-37); Alanine Aminotransfer ALT/SGPT 29 U/L (16-61); Albumin, Serum 3.4 g/dL (3.2-5.0); Alkaline Phosphatase 108 U/L (45-117); Bilirubin, Direct 0.21 mg/dL (0.00-0.30); Cholesterol 171 mg/dL (200); High Density Lipoprotein 41 mg/dL; PSA,Total - Annual Screen 1.06 ng/mL (0.00-4.00); Protein, Total 7.4 g/dL (6.4-8.2); Triglycerides 296 mg/dL; Very Low Density Lipoprotein 59 mg/dL (5-40)
[2024-05-01 12:59] LABS: Hemoglobin A1c 6.3 % (3.8-5.6)
== END | disposition home or self-care (01) ==
LOC: BFHLAB 10:20
PROVIDERS: PCP Family Medicine; Referring Provider Family Medicine; Visit Provider Family Medicine
DX: Z00.00 Encounter for general adult medical examination without abnormal findings (principal); Z12.5 Encounter for screening for malignant neoplasm of prostate
CPT/HCPCS: 36415; 80061; 80076; 83036; 84153; G0103

== ENCOUNTER → 2024-05-06 | Outpatient (CLI) | payer BC, SELFPAY ==
--- NOTE | 2024-05-06 15:57 | VDLE_ITS ---
Reason For Study: Swelling LLE RIGHT LEFT CFV is compressible, spontaneous, phasic, GSV is normal. competent and demonstrates normal CFV is compressible, spontaneous, phasic, augmentation. competent, and demonstrates normal Procedure augmentation. This is a venous duplex using B-mode, color FV is compressible, spontaneous, phasic, flow and spectral Doppler. competent and demonstrates normal Exam performed in department. augmentation. A preliminary report was called and/or faxed POP V is compressible, spontaneous, phasic, to Dr. Le. competent and demonstrates normal augmentation. T/P Trunk is compressible. PTV is compressible. LT PerV is compressible. VL/Venous Duplex US, Unilateral Interpretation Summary Deep veins of the left lower extremity are patent and compressible segmentally. There is no evidence of left lower extremity deep vein thrombosis. Valvular competence appears intac t within the proximal deep venous system on the left . The left great saphenous vein appears patent a nd compressible segmentally. The right common femoral vein is patent and compressible . Ordering Physician: Cristofer Le Referring Physician: Wesley Brewer Performed By: Jackelyn Loving, KERA, RVT
== END | disposition home or self-care (01) ==
PROVIDERS: PCP Family Medicine; Referring Provider Specialist; Visit Provider Specialist
DX: R22.42 Localized swelling, mass and lump, left lower limb (principal)
CPT/HCPCS: 93971

== ENCOUNTER → 2024-07-09 | Outpatient (CLI) | payer BC, SELFPAY ==
--- NOTE | 2024-07-09 13:57 | CT_ITS ---
CT RIGHT LOWER EXTREMITY WITH 3-D IMAGING CLINICAL INDICATION: PAIN IN RIGHT KNEE TECHNIQUE: Axial CT images of the right lower extremity (including right hip, right knee, and right ankle) was performed without IV contrast material. Coronal and sagittal reformats were provided. The protocol utilizes one or more of the following dose reduction techniques: automated exposure control, adjustment of mA and/or kV according to patient size, and/or use of iterative reconstruction technique. RADIATION DOSAGE (If Supplied By Facility): CTDIvol = ( 18.76 ) mGy, DLP = ( 1228.81 ) mGycm COMPARISON: No relevant prior comparison study available. FINDINGS: Bones: There is mild degenerative arthrosis of the right hip joint with joint space narrowing, marginal osteophyte formation, and tiny subchondral cyst formation in the superolateral aspect of the right acetabulum. There is tricompartment degenerative arthrosis of the right knee joint, most pronounced in the medial femorotibial compartment. There is moderate to severe joint space narrowing, marginal osteophyte formation, and subchondral sclerosis. Unremarkable right ankle. Osseous structures are intact without evidence of fracture or dislocation. No lytic or blastic osseous masses. Soft Tissues: There is a small left fat-containing inguinal hernia. There is a small right knee joint effusion. There is a 4 mm ossified loose body in the posterior femorotibial joint recess (axial series 2 image 297). The deep soft tissue structures are otherwise unremarkable. The superficial soft tissues are unremarkable without evidence of edema, hematoma, or foreign body. CT/Extremity Lower without Contra IMPRESSION: Tricompartment degenerative arthrosis of the right knee joint, most pronounced in the medial femorotibial compartment. Small right knee joint effusion, with a 4 mm ossified loose body in the posterior femorotibial joint recess. Electronically Signed: Nish Stone MD at 14:48 EST ,
--- NOTE | 2024-07-09 13:58 | EKG12_ITS ---
Test Reason : PRE OP Blood Pressure : */* mmHG Vent. Rate : 101 BPM Atrial Rate : 101 BPM P-R Int : 146 ms QRS Dur : 80 ms QT Int : 344 ms P-R-T Axes : 63 -42 47 degrees QTcB Int : 446 ms Sinus tachycardia Left axis deviation Possible Lateral infarct , age undetermined Abnormal ECG Confirmed by Harry See ([id number]), editor continuity and script ANAMARIA COURTNEY ([id number]) on 07/10/2024 7:17:50 AM Referred By: Cristofer Le Confirmed By: Harry See
[2024-07-09 15:04] LABS: Absolute Neutrophil Count 2.3 X10^3/uL (2.0-7.7); Basophil# 0.03 X10^3/uL; Basophil% 0.6 % (0-1); Eosinophil# 0.08 X10^3/uL; Eosinophils% 1.6 % (0-5); Hematocrit 48.3 % (40-54); Hemoglobin 16.2 g/dL (13.0-16.5); Lymphocyte % 37.1 % (19-41); Mean Corp Hgb Conc 33.5 g/dL (32-36); Mean Corpuscular Hgb 29.7 pg (27.0-32.0); Mean Corpuscular Volume 88.6 fL (80-94); Mean Platelet Vol. 9.6 fl (6.2-12.0); Monocyte# 0.84 X10^3/uL; Monocyte% 16.4 % (0-10); NRBC Flagged by Analyzer 0 % (0-5); Neutrophil # 2.25 X10^3/uL (2.7-7.7); Neutrophil % 43.9 % (47-70); Platelet Count 192 K/mm3 (150-450); RBC Distribution Width CV 12.7 % (11.6-14.6); RBC Distribution Width SD 41.7 fl (35.1-43.9); Red Blood Count 5.45 M/mm3 (4.6-6.2); White Blood Count 5.1 K/mm3 (4.4-11.0)
[2024-07-09 15:41] LABS: Albumin, Serum 3.4 g/dL (3.2-5.0); Anion Gap 3 (5-15); BUN 24 mg/dL (7-18); BUN/Creat Ratio 16.6 RATIO (10-20); Calcium,Total 8.8 mg/dL (8.5-10.1); Chloride 104 mmol/L (98-107); Creatinine, Serum 1.45 mg/dL (0.70-1.30); EST Glomerular Filtration Rate 53 mL/min (>60); Est Glom Filt Rate - Afr Amer 64 mL/min (>60); Glucose 111 mg/dL (74-106); Potassium 4.7 mmol/L (3.5-5.1); Sodium Level 136 mmol/L (136-145)
== END | disposition home or self-care (01) ==
PROVIDERS: PCP Family Medicine; Referring Provider Specialist; Visit Provider Specialist
DX: Z01.818 Encounter for other preprocedural examination (principal); M17.0 Bilateral primary osteoarthritis of knee; M25.561 Pain in right knee
CPT/HCPCS: 36415; 73700; 80048; 82040; 85025; 93005

== ENCOUNTER → 2024-08-21 | Outpatient (CLI) | payer BC, SELFPAY ==
[2024-08-21 17:53] LABS: Anion Gap 4 (5-15); BUN 16 mg/dL (7-18); BUN/Creat Ratio 16.5 RATIO (10-20); Calcium,Total 9.5 mg/dL (8.5-10.1); Chloride 104 mmol/L (98-107); Creatinine, Serum 0.97 mg/dL (0.70-1.30); EST Glomerular Filtration Rate 84 mL/min (>60); Est Glom Filt Rate - Afr Amer 101 mL/min (>60); Glucose 117 mg/dL (74-106); Potassium 4.7 mmol/L (3.5-5.1); Sodium Level 138 mmol/L (136-145)
[2024-08-21 18:58] LABS: Hemoglobin A1c 6.3 % (3.8-5.6)
== END | disposition home or self-care (01) ==
LOC: BFHLAB 15:24
PROVIDERS: PCP Family Medicine; Visit Provider Family Medicine
DX: R79.89 Other specified abnormal findings of blood chemistry (principal); R73.03 Prediabetes
CPT/HCPCS: 36415; 80048; 83036

== ENCOUNTER → 2024-09-05 | Outpatient (CLI) | payer BC, SELFPAY | END | disposition home or self-care (01) | PROVIDERS: PCP Family Medicine; Referring Provider Family Medicine; Visit Provider Family Medicine | DX: R06.89 Other abnormalities of breathing (principal); I10 Essential (primary) hypertension; Z68.39 Body mass index [BMI] 39.0-39.9, adult | CPT/HCPCS: 95806 ==

== ENCOUNTER → 2024-09-18 | Outpatient (CLI) | payer BC, SELFPAY | END | disposition home or self-care (01) | LOC: SL 18:00 | PROVIDERS: PCP Family Medicine; Visit Provider Family Medicine | DX: Z46.89 Encounter for fitting and adjustment of other specified devices (principal) ==

== ENCOUNTER → 2024-10-23 | Outpatient (CLI) | payer BC, SELFPAY | END | disposition home or self-care (01) | LOC: SL 13:53 | PROVIDERS: PCP Family Medicine; Visit Provider Family Medicine | DX: Z00.00 Encounter for general adult medical examination without abnormal findings (principal) ==

== ENCOUNTER → 2024-11-11 | Outpatient (CLI) | payer BC, SELFPAY | END | disposition home or self-care (01) | PROVIDERS: PCP Family Medicine; Referring Provider Family Medicine; Visit Provider Family Medicine | DX: Z00.00 Encounter for general adult medical examination without abnormal findings (principal) ==

== ENCOUNTER → 2025-05-13 | Outpatient (CLI) | payer BC, SELFPAY ==
--- OUTSIDE RECORDS SUMMARY | 2025-05-13 17:09 | XMS RPT_ITS | CCD ---
Author Organization [facility] CliniSynh Care Team Providers Care Cigarette Stamper Name Role Phone NAVEED SHOEMAKER, DR RUCHI Worthy Primary Care Physician IVY LIU, DR JUDITH Worthy Attending Kasey Boston MD, DR JUDITH Worthy Attending Kasey Boston MD, DR JUDITH Worthy Admitting Unavailab Vill[place] DINKEY DISPATCHER-POLE SETTER, TRACIE Chacko [facility] BREW[facility] DO, DR RUCHI Worthy Primary Care Kasey Boston MD, DR JUDITH Worthy Attending Kasey Bravo DO, Dr. Olson Primary Care Provider Ivy LIU, Dr. Cleveland Attending Provider Ivy LIU, Dr. Cleveland Referring Provider [phone] Esa LIU, Dr. Mcdonald Attending Provider Dr. Ruchi Brewer DO Attending Provider Dr. Ruchi Brewer DO Referring Provider Dr. Ruchi Brewer DO Primary Care Provider Ruchi Brewer Referring Unavailable Ruchi Brewer Attending Unavailable Ruchi Brewer Primary Care Unavailable Rucih Brewer Attending Unavailable Ruchi Brewer Primary Care Unavailable Ruchi Brewer Primary Care Unavailable Judith Haynes Referring Unavailable Judith Haynes Attending Unavailable Ruchi Brewer Primary Care Unavailable Judith Haynes Referring Unavailable Judith Haynes Attending Unavailable Ruchi Brewer Referring Unavailable Ruchi Brewer Attending Unavailable Ruchi Brewer Primary Care Unavailable Ruchi Brewer Primary Care Unavailable Ruchi Brewer Referring Unavailable NaveedRuchi infante Attending Unavailable Ruchi Brewer Attending Unavailable NaveedRuchi infante Primary Care Unavailable NaveedRuchi infante Attending Unavailable Ruchi Brewer Primary Care Unavailable Harry See Attending Unavailable NaveedRuchi Primary Care Unavailable Judith Haynes Referring Unavailable NaveedRuchi Attending Unavailable NaveedRuchi Primary Care Unavailable Unavailable Primary Care Provider UnavailRuchi Waddell DO Primary Care Provider RUCHI BREWER Primary Care Unavailable REUBEN MILIAN Referring Unavailable REUBEN MILIAN Attending Unavailable REUBEN MILIAN Admitting Unavailable Ruchi Brewer DO Primary Care Provider Roshni Bain Attending Unavailable NAVEEDRUCHI INFANTE Primary Care Unavailable MOE CASTORENA Attending Unavailable Roshni Bain Referring Unavailable NAVEED, RUCHI Worthy Primary Care Unavailable Roshni Bain Attending Unavailable Medications Current Medications Medication Drug Class(es) Dates [...] 0 Refill(s) Start Date: 04/17/24 Status: Ordered cephalexin 500 mg oral capsule (4 sources) Cephalosporin Antibacterial Start: 04-29-2020 take 1 capsule by mouth every six hours Cephalexin 500 MG capsule Active 500 mg PO EVERY 6 HOURS April 29, 2020 12:00am ciprofloxacin 3 mg/ml / dexamethasone 1 mg/ml otic suspension (1 source) Corticosteroid, Quinolone Antimicrobial Start: 02-05-2020 End: 02-21-2025 ciprofloxacin-dexame thasone (CIPRODEX) otic suspension Use 4 Drops in both ears twice daily. 1 Bottle 02/05/2020 02/21/2025 Discontinued docusate sodium 50 mg / sennosides, group home 8.6 mg oral tablet (1 source) Start: 04-17-2024 End: 04-20-2024 take 1 tablet by mouth twice daily Senokot S 50 mg-8.6 mg oral tablet Dose = 2 tab(s), Oral, BID, Take until first bowel movement, then as needed, X 3 day(s), # 12 tab(s), 0 Refill(s), Pharmacy: [facility]/pharmacy #[id number], 177.8, cm, 04/16/24 10:40:00 EDT, [...] 0 Refill(s), 05/01/24 9:04:00 AM EDT, Pharmacy: [facility]/pharmacy #[id number], 177.8, cm, 04/16/24 10:40:00 EDT, Height, 131.8, kg, 04/16/24 10:40:00 EDT, Dosing Weight Start Date: 04/17/24 Stop Date: 05/01/24 Status: Ordered famotidine 20 mg oral tablet (1 source) Histamine-2 Receptor Antagonist Start: 04-17-2024 Pepcid 20 mg oral tablet Dose : 20 mg = 1 tab(s), Oral, qDay, # 30 tab(s), 0 Refill(s), Pharmacy: [facility]/pharmacy #[id number], 177.8, cm, 04/16/24 10:40:00 EDT, Height, kg, 04/16/24 10:40:00 EDT, Dosing Weight Start Date: 04/17/24 Status: Ordered fluticasone propionate 0.05 mg/actuat metered dose nasal spray (1 source) Corticosteroid Start: 02-05-2020 End: 02-21-2025 take 2 spray(s) nasal route once daily fluticasone (FLONASE) 50 mcg/actuation nasal spray Use 2 Sprays in each nostril once daily. 1 Bottle 11 02/05/2020 02/21/2025 Discontinued meloxicam 7.5 mg oral tablet (3 sources) Nonsteroidal Anti-inflammatory Drug Start: 04-17-2024 Mobic 7.5 mg oral tablet Dose : 7.5 mg = 1 tab(s), Oral, BIDM, Do not take any other nonsteroidal anti-inflammatories while on meloxicam/Mobic., # 60 tab(s), 0 Refill(s), Pharmacy: [facility]/pharmacy #[id number], 177.8, cm, 04/16/24 10:40:00 EDT, [...] 0 Refill(s), 04/24/24 9:05:00 AM EDT, Pharmacy: [facility]/pharmacy #[id number], Status post total left knee replacement, 177.8, cm, 04/16/24 10:40:00 EDT, Height, 131.8, kg, 04/16/24 10:40:00 EDT, Dosing Weight Start Date: 04/17/24 Stop Date: 04/24/24 Status: Ordered 5 ml sodium chloride 9 mg/ml injection (3 sources) Start: 02-22-2025 Start: 02-22-2025 tirzepatide, weight loss (ZEPBOUND) 12.5 mg/0.5 mL pen injector (2 sources) inject 12.5 mg by subcutaneous injection every week tirzepatide, weight loss (ZEPBOUND) 12.5 mg/0.5 mL pen injector Inject 12.5 mg subcutaneously one time a week. Active tirzepatide-weight management (ZEPBOUND) 12.5 MG/0.5ML SOAJ subCUTAneous auto-injector pen (1 source) tirzepatide-weig ht management (ZEPBOUND) 12.5 MG/0.5ML SOAJ subCUTAneous auto-injector pen Inject into the skin once a week sundays Active Completed/Discontinued Medications Medication Drug Class(es) Dates Sig (Normalized) Sig (Original) calcium chloride 0.0014 meq/ml / potassium chloride 0.004 meq/ml / sodium chloride 0.103 meq/ml / sodium lactate 0.028 meq/ml injectable solution (1 source) Start: 03-13-2025 End: 03-13-2025 take 30 mL intravenously every hour 30 mL/hr, INTRAVENOUS, CONTINUOUS, Starting on Tamara 03/13/25 at 0930, Until Tamara 03/13/25 at 1006, Preprocedure cyclopentolate hydrochloride 10 mg/ml ophthalmic solution (1 source) Start: 02-22-2025 End: 02-22-2025 1 drop, Left Eye, EVERY 5 MIN PRN, 3 doses, Starting on 02/22/25 at 0657, Until 02/22/25 at 0725, Other, pre op 1 ml fentaNYL 0.05 mg/ml injection (1 source) Opioid Agonist Start: 03-13-2025 End: 03-13-2025 25-100 mcg, INTRAVENOUS, DIRECTED, Starting on Tamara 03/13/25 at 1000, Until Tamara 03/13/25 at 1359, DOSING DIRECTED BY PHYSICIAN FOR PROCEDURAL SEDATION ONLY, Intraprocedure 5 ml midazolam 1 mg/ml injection (1 source) Benzodiazepine Start: 03-13-2025 End: 03-13-2025 1-5 mg, INTRAVENOUS, DIRECTED, Starting on Tamara 03/13/25 at 1000, Until Tamara 03/13/25 at 1359, DOSING DIRECTED BY PHYSICIAN FOR PROCEDURAL SEDATION ONLY, Intraprocedure phenylephrine hydrochloride 25 mg/ml ophthalmic solution (1 source) alpha-1 Adrenergic Agonist Start: 02-22-2025 End: 02-22-2025 1 drop, Left Eye, EVERY 5 MIN PRN, 3 doses, Starting on 02/22/25 at 0656, Until 02/22/25 at 0725, Irritation proparacaine hydrochloride 5 mg/ml ophthalmic solution (1 source) Local Anesthetic Start: 02-22-2025 End: 02-22-2025 1 drop, Left Eye, EVERY 5 MIN PRN, 3 doses, Starting on 02/22/25 at 0655, Until 02/22/25 at 0725, Pain tropicamide 10 mg/ml ophthalmic solution (1 source) Anticholinergic Start: 02-22-2025 End: 02-22-2025 1 drop, Left Eye, EVERY 5 MIN PRN, 3 doses, Starting on 02/22/25 at 0656, Until 02/22/25 at 0725, preop Problems Active Problems Problem Classification Problem Date Documented Date Episodic/Chronic Diabetes mellitus without complication (1 source) Prediabetes; Translations: [Prediabetes] Onset: 08-20-2024 Episodic Diseases of white blood cells (1 source) Leukocytosis; Translations: [Elevated white blood cell count, unspecified] Onset: 04-17-2024 Chronic Essential hypertension (1 source) Essential hypertension; Translations: [Essential (primary) hypertension] Onset: 04-17-2024 Chronic Open wounds of extremities (4 sources) Laceration of right wrist; Translations: [Laceration without foreign body of right wrist, initial encounter] 04-30-2020 Episodic Osteoarthritis (1 source) Osteoarthritis; Translations: [Unspecified osteoarthritis, unspecified site] Onset: 04-17-2024 Chronic Other and unspecified benign neoplasm (4 sources) History of polyp of colon; Translations: [History of colonic polyps] 02-21-2025 Episodic Other and unspecified benign neoplasm (1 source) Benign neoplasm of colon, unspecified; Translations: [Tubular adenoma of colon] Onset: 03-24-2025 Episodic Other connective tissue disease (1 source) Artificial knee joint present; Translations: [Presence of left artificial knee joint] Onset: 04-17-2024 Chronic Other lower respiratory disease (1 source) Other abnormalities of breathing; Translations: [Other abnormalities of breathing] Onset: 09-18-2024 Episodic Other nutritional; endocrine; and metabolic disorders (2 sources) Body mass index 40+ - severely obese; Translations: [Obesity, Class III, BMI 40-49.9 (morbid obesity)] Onset: 05-02-2013 09-26-2017 Chronic Other screening for suspected conditions (not mental disorders or infectious disease) (9 sources) Other specified abnormal findings of blood chemistry; Translations: [Patient encounter status] Onset: 12-29-2016 02-21-2025 Episodic Rehabilitation care; fitting of prostheses; and adjustment of devices (1 source) Encounter for fitting and adjustment of other specified devices; Translations: [Encounter for fitting and adjustment of other specified devices] Onset: 09-25-2024 Chronic Unclassified (1 source) History of colonic polyps; Translations: [History of colonic polyps] Onset: 03-13-2025 Past or Other Problems Problem Classification Problem Date Documented Da te Episodic/Chronic Abdominal hernia (2 sources) Umbilical hernia; Translations: [Umbilical hernia without obstruction or gangrene] Onset: 05-02-2013 05-02-2013 Episodic Other male genital disorders (2 sources) Scrotal mass; Translations: [Other specified disorders of the male genital organs] Onset: 12-29-2016 12-29-2016 Episodic Other male genital disorders (2 sources) Spermatocele; Translations: [Spermatocele of epididymis, unspecified] Onset: 02-09-2018 02-09-2018 Episodic Other skin disorders (1 source) Localized swelling, mass and lump, left lower limb; Translations: [Localized swelling, mass and lump, left lower limb] Onset: 05-27-2024 Episodic Unclassified (2 sources) Patient encounter status 02-21-2025 Results Test Name Value Interpretation Reference Range Facility [facility] 03-24-2025 CNOV Office Visit (GENSWS) ESTRADA MCCORMACK ([id number]) 1965 M Date Time Provider Department 03/24/25 3:00 PM ROSHNI BAIN During your visit today, we recorded the following information about you: Roshni Bain APRN.CNP 03/24/2025 2:57 PM Signed FOLLOW UP VISIT - ENDOSCOPY Estrada Mccormack 1965 [id number] REFERRING PHYSICIAN: No referring provider defined for this encounter. Estrada Mccormack is a patient I am following for screen for colonoscopy. Dr. Castorena performed lower endoscopy on 03/13/25. The patient was found to have Impression: - One diminutive (1-3 mm) polyp in the ascending colon, removed with a jumbo cold forceps. Resected and retrieved. - Two small (4-6 mm) polyps in the descending colon, removed with a cold snare. Resected and retrieved. - Non-bleeding internal hemorrhoids. - The examination was otherwise normal Pathology demonstrated: FINAL DIAGNOSIS A. Colon, ascending, polyp, biopsy: - Fragments of tubular adenoma. B. Colon, descending, polyps x 2, biopsy: - Tubular adenomas. The patient notes no complaints since the procedure. VITALS: There were no vitals taken for this visit. General: patient is alert, cooperative, pleasant and in no acute distress On examination, the abdomen is benign. Assessment ASSESSMENT/PLAN: 1. Tubular adenoma of colon - ICD9: 211.3, ICD10: D12.6 The operative findings and pathology report were reviewed with the patient, and the patient has had the opportunity to ask questions and have questions answered. If the patient notes any problems or changes in bowel function, the patient should contact me immediately. Otherwise I recommend follow up endoscopy in 5 years. HM updated. Discussed treatment plan and patient voices understanding. Patient's questions answered appropriately. Medications and potential side effects were discussed and patient voices understanding. Return to the office as scheduled or as needed for worsening/no improvement. Roshni Bain APRN.IVETTE Allergies As of Date: 03/24/2025 (No Known Allergies) Date Reviewed: 03/24/2025 Reviewed by: Roshni Bain APRN.POLE SETTER - Fully Assessed Reason for Visit: Post Op Follow Up [3947] Primary Visit Diagnosis:Tubular adenoma of colon [D12.6] Prescriptions as of 03/24/2025 - tirzepatide, weight loss (ZEPBOUND) 12.5 mg/0.5 mL pen injector Inject 12.5 mg subcutaneously one time a week. Meds Comments as of 06/28/2019: Uses ibuprofen prn Pharmacy - [facility] [place] Problem List As Of Date 03/24/2025 Noted Resolved Umbilical hernia [K42.9] 05/02/2013 Obesity, Class III, BMI 40-49.9 (morbid obesity*05/02/2013 Screening PSA (prostate specific antigen) [Z12.*12/29/2016 Lump in scrotum [N50.89] 12/29/2016 Spermatocele [N43.40] 02/09/2018 Letter Text Encounter Status:Closed by ROSHNI BAIN on 03/24/25 [facility] [id number] 03-13-2025 [id number] HNO ID: [id number] Author: BIANKA SLAUGHTER RN Service: ? Author Type: Registered Nurse Type: [id number] Filed: 03/13/2025 10:16 Note Text: The patient received a copy of Colonoscopy discharge instructions that contain information for how to contact the physician who performed the procedure and when to seek medical care. Normal [facility] Colonoscopyon 03-13-2025 Colonoscopy [facility] Gastrointestinal Endoscopy Patient Name: Estrada Mccormack Procedure Date: 03/13/2025 9:33 AM Date of : 1965 Admit Type: Outpatient Age: 59 Gender: Male Note Status: Finalized Procedure: Colonoscopy Indications: High risk colon cancer surveillance: Personal history of adenomatous colonic polyps Providers: Moe Castorena MD Patient Profile: This is a 59 year old male. Refer to note in patient chart for documentation of history and physical. Last Colonoscopy: January 2020. Referring Physician: Roshni Bain (Referring MD) Medicines: Fentanyl 100 micrograms IV, Midazolam 5 mg IV Complications: No immediate complications. Estimated blood loss: Minimal. Requesting Provider: Procedure: Pre-Anesthesia Assessment: - Prior to the procedure, a History and Physical was performed, and patient medications and allergies were reviewed. The patient's tolerance of previous anesthesia was also reviewed. The risks and benefits of the procedure and the sedation options and risks were discussed with the patient. All questions were answered, and informed consent was obtained. Prior Anticoagulants: The patient has taken no anticoagulant or antiplatelet agents. ASA Grade Assessment: III - A patient with severe systemic disease. After reviewing the risks and benefits, the patient was deemed in satisfactory condition to undergo the procedure. After I obtained informed consent, the scope was passed under direct vision. Throughout the procedure, the patient's blood pressure, pulse, and oxygen saturations were monitored continuously. The Colonoscope was introduced through the anus and advanced to the cecum, identified by appendiceal orifice and ileocecal valve. The colonoscopy was performed without difficulty. The patient tolerated the procedure well. The quality of the bowel preparation was adequate to identify polyps greater than 5 mm in size. The ileocecal valve, appendiceal orifice, and rectum were photographed. Moderate Sedation: The administration of moderate sedation was initiated at 09:41. Moderate (conscious) sedation was personally administered by the endoscopist. The following parameters were monitored: oxygen saturation, heart rate, blood pressure, respiratory rate, EKG, adequacy of pulmonary ventilation, and response to care. Total physician intraservice time was 16 minutes. Findings: The perianal and digital rectal examinations were normal. A diminutive (1-3 mm) polyp was found in the ascending colon. The polyp was sessile. The polyp was removed with a jumbo cold forceps. Resection and retrieval were complete. Two sessile polyps were found in the descending colon. The polyps were small (4-6 mm) in size. These polyps were removed with a cold snare. Resection and retrieval were complete. Non-bleeding internal hemorrhoids were found during retroflexion. The hemorrhoids were mild and small. The exam was otherwise without abnormality. Impression: - One diminutive (1-3 mm) polyp in the ascending colon, removed with a jumbo cold forceps. Resected and retrieved. - Two small (4-6 mm) polyps in the descending colon, removed with a cold snare. Resected and retrieved. - Non-bleeding internal hemorrhoids. - The examination was otherwise normal. Recommendation: - Patient has a contact number available for emergencies. The signs and symptoms of potential delayed complications were discussed with the patient. Return to normal activities tomorrow. Written discharge instructions were provided to the patient. - Resume previous diet. - Continue present medications. - Await pathology results. - Repeat colonoscopy in 5 years for surveillance. - Return to nurse practitioner at appointment to be scheduled. Procedure Code(s): --- Professional --- 50470, Colonoscopy, flexible; with removal of tumor(s), polyp(s), or other lesion(s) by snare technique 89341, 59, Colonoscopy, flexible; with biopsy, single or multiple G0500, Moderate sedation services provided by the same physician or other qualified health director of medicare performing a gastrointestinal endoscopic service that sedation supports, requiring the presence of an independent trained observer to assist in the monitoring of the patient's level of consciousness and physiological status; initial 15 minutes of intra-service time; patient age 5 years or older (additional time may be reported with 63158, as appropriate) Diagnosis Code(s): --- Professional --- Z12.11, Encounter for screening for malignant neoplasm of colon Z86.0101, Personal history of adenomatous and serrated colon polyps D12.2, Benign neoplasm of ascending colon D12.4, Benign neoplasm of descending colon K64.8, Other hemorrhoids CPT copyright 2020 [employer]. All rights reserved. The codes documented in this report are preliminary and upon digital media buyer review october (more content not included)... Normal [facility] Colonoscopy Study observatio non 03-13-2025 [facility] Gastrointestinal Endoscopy Patient Name: Estrada Mccormack Procedure Date: 03/13/2025 9:33 AM Date of : 1965 Admit Type: Outpatient Age: 59 Gender: Male Note Status: Finalized Procedure: Colonoscopy Indications: High risk colon cancer surveillance: Personal history of adenomatous colonic polyps Providers: Moe Castorena MD Patient Profile: This is a 59 year old male. Refer to note in patient chart for documentation of history and physical. Last Colonoscopy: January 2020. Referring Physician: Roshni Bain (Referring MD) Medicines: Fentanyl 100 micrograms IV, Midazolam 5 mg IV Complications: No immediate complications. Estimated blood loss: Minimal. Requesting Provider: Procedure: Pre-Anesthesia Assessment: - Prior to the procedure, a History and Physical was performed, and patient medications and allergies were reviewed. The patient's tolerance of previous anesthesia was also reviewed. The risks and benefits of the procedure and the sedation options and risks were discussed with the patient. All questions were answered, and informed consent was obtained. Prior Anticoagulants: The patient has taken no anticoagulant or antiplatelet agents. ASA Grade Assessment: III - A patient with severe systemic disease. After reviewing the risks and benefits, the patient was deemed in satisfactory condition to undergo the procedure. After I obtained informed consent, the scope was passed under direct vision. Throughout the procedure, the patient's blood pressure, pulse, and oxygen saturations were monitored continuously. The Colonoscope was introduced through the anus and advanced to the cecum, identified by appendiceal orifice and ileocecal valve. The colonoscopy was performed without difficulty. The patient tolerated the procedure well. The quality of the bowel preparation was adequate to identify polyps greater than 5 mm in size. The ileocecal valve, appendiceal orifice, and rectum were photographed. Moderate Sedation: The administration of moderate sedation was initiated at 09:41. Moderate (conscious) sedation was personally administered by the endoscopist. The following parameters were monitored: oxygen saturation, heart rate, blood pressure, respiratory rate, EKG, adequacy of pulmonary ventilation, and response to care. Total physician intraservice time was 16 minutes. Findings: The perianal and digital rectal examinations were normal. A diminutive (1-3 mm) polyp was found in the ascending colon. The polyp was sessile. The polyp was removed with a jumbo cold forceps. Resection and retrieval were complete. Two sessile polyps were found in the descending colon. The polyps were small (4-6 mm) in size. These polyps were removed with a cold snare. Resection and retrieval were complete. Non-bleeding internal hemorrhoids were found during retroflexion. The hemorrhoids were mild and small. The exam was otherwise without abnormality. Impression: - One diminutive (1-3 mm) polyp in the ascending colon, removed with a jumbo cold forceps. Resected and retrieved. - Two small (4-6 mm) polyps in the descending colon, removed with a cold snare. Resected and retrieved. - Non-bleeding internal hemorrhoids. - The examination was otherwise normal. Recommendation: - Patient has a contact number available for emergencies. The signs and symptoms of potential delayed complications were discussed with the patient. Return to normal activities tomorrow. Written discharge instructions were provided to the patient. - Resume previous diet. - Continue present medications. - Await pathology results. - Repeat colonoscopy in 5 years for surveillance. - Return to nurse practitioner at appointment to be (more content not included)... [facility] Radiology Study observation (narrative) [facility] HISTORY PHYSICALon 5 HISTORY PHYSICAL HNO ID: [id number] Author: MOE CASTORENA MD Service: General Surgery Author Type: Physician Type: H&P Filed: 03/13/2025 09:26 Note Text: HISTORY AND PHYSICAL Estrada Mccormack : 1965 REFERRING PHYSICIAN: No referring provider defined for this encounter. CHIEF COMPLAINT: Patient presents with: Consult: Due for colonoscopy. Denies GI issues HPI: Estrada is a 59 year old male referred for endoscopy. Estrada notes due for screening colonoscopy-hx of polyps (2019). Estrada denies abdominal pain. Estrada denies diarrhea. Estrada denies constipation. Estrada denies a change in bowel habits. Estrada denies melena. Estrada denies bright red blood per rectum. Estrada denies hemorrhoids. Estrada denies family history of colon issues. Estrada denies heartburn. Estrada denies dysphagia. Estrada denies a history of ulcers/ peptic ulcer disease. Estrada has undergone prior endoscopy. Last colonoscopy was 01/[address] Leung at [facility]. Sedation: Midazolam 7 mg IV, Fentanyl 50 micrograms IV, Diphenhydramine 50 mg IV Impression: - One 3 to 7 mm polyp in the transverse colon, removed with a cold snare. Resected and retrieved. - One 3 to 7 mm polyp in the descending colon, removed with a cold snare. Resected and retrieved. - Non-bleeding internal hemorrhoids. CONVERTED FINAL DIAGNOSIS 1. Colon, transverse polyp, biopsy (A) - Colonic mucosa with no pathologic diagnostic abnormality; see comment. 2. Colon, left polyp, biopsy (B) - Tubular adenoma. SS/glw 01/17/2020 CONVERTED DIAGNOSIS COMMENT 1. Additional deeper levels were also examined. CURRENT MEDICATIONS Current Outpatient Medications Medication Sig tirzepatide, weight loss (ZEPBOUND) 12.5 mg/0.5 mL pen injector Inject 12.5 mg subcutaneously one time a week. No current facility-administere d medications for this visit. ALLERGIES: Patient has no known allergies. PAST MEDICAL HISTORY PAST MEDICAL HISTORY Diagnosis Date NEGATIVE MEDICAL HISTORY Snoring PAST SURGICAL HISTORY PAST SURGICAL HISTORY Procedure Laterality Date CATARACT SURGERY, COMPLEX 2009 bilateral COLONOSCOP W/ OR W/O [facility] SPEC 08/25/2017 Colonoscopy COLONOSCOP W/ OR W/O [facility] SPEC 11/02/2017 Colonoscopy COLONOSCOP W/ OR W/O [facility] SPEC 01/15/2020 Colonoscopy PAST SURGICAL HISTORY OF Left 2018 Rotator cuff surgery REPAIR UMBILICAL BETO,5+Y/O,REDUC 08/20/13 simple SHOULDER ARTHROSCOPY/SURGERY 2009 right, rotator cuff repair FAMILY HISTORY FAMILY HISTORY Problem Relation Age of Onset Diabetes Father Cancer Mother stomach Breast Cancer Mother None Sister [SOCIAL HISTORY] [SOCIAL HISTORY] Social History Tobacco Use Smoking status: Former Current packs/day: 0.50 Average packs/day: 0.5 packs/day for 7.0 years (3.5 ttl pk-yrs) Types: Cigarettes Smokeless tobacco: Never Tobacco comments: only smoked couple years in high school Vaping Use Vaping status: Never Used Substance Use Topics Alcohol use: Yes Comment: weekends 12 pack Drug use: No REVIEW OF SYMPTOMS: REVIEW OF SYSTEMS: General: The patient denies fatigue, + weight loss, denies weight gain, denies feeling hot, and feelings of cold. Eyes: The patient denies glaucoma, + eye injury/surgery, denies glasses or contacts. Ear/Nose/Throat: The patient denies allergies, denies hayfever, denies ear infections, and denies bloody noses. Cardiovascular: The patient denies chest pain, denies heart disease, + high blood pressure, denies high cholesterol, and denies poor circulation. Respiratory: The patient denies tuberculosis, denies pneumonia, denies frequent cough, denies shortness of breath, and denies coughing up blood. Gastrointestinal: The patient denies difficulty swallowing, denies acid reflux, denies ulcers, denies jaundice/hepatitis, denies gallbladder problems, denies vomiting, denies black or tarry stools, denies hemorrhoids, denies bleeding from rectum, denies diverticulitis, denies constipation, denies diarrhea, denies loss of stool control, and denies hernias. Kidney/Bladder: The patient denies kidney stones, denies urine infections, and denies bloody urine. Skin: The patient denies a history of skin cancer, denies bleeding/changing moles, and denies a history of skin rash. Neurologic: The patient denies a history of epilepsy/convulsions , denies headaches, denies head/spinal injuries, and denies stroke/TIA. Psychiatric: The patient denies psychiatric medications, denies depression, and denies voices. Endocrine: The patient denies thyroid disorders, denies diabetes, and denies hormonal problems. Hematologic: The patient denies a history of bruising, denies bleeding, and denies anemia. Infections: The patient denies a history of measles and mumps, denies rheumatic fever, and denies sexually transmitted diseases. Musculoskeletal: The patient denies back pain/injury, + back problems, denies sci (more content not included)... Normal [facility] Pathology biopsy report Austen (Tiss)on 03-13-2025 AP DISCLAIMER Normal [facility] Comment on above: Order Comment: Speci men Type: TISSUE SPECIMEN Ordering Facility: [facility] Address: [address] [place] [address] Result Comment: Jourdan hernandez Developed Test (LDT) Disclaimer: Performance characteristics of immunohistochemical, immunofluorescent, and chromogenic in-situ hybridization tests have been determined by the performing laboratory within the [facility] Department of Pathology and Laboratory Medicine ([facility], [facility], [facility], [facility], [facility], [facility], or [facility]) in a manner consistent with CLIA requirements. One or more of these tests may not have been cleared or approved by the FDA. The [facility] Department of Pathology and Laboratory Medicine is regulated under CLIA as qualified to perform high-complexity testing. These tests are used for clinical purposes. These should not be regarded as investigational or for research. Positive and negative controls stain appropriately. Performed By: #### 6 6121-5 #### [facility] CLIA [id number] [address] [place] [address] [place] CASE REPORT Normal [facility] Comment on above: Order Comment: Speci men Type: TISSUE SPECIMEN Ordering Facility: [facility] Address: [address] [place] [address] Result Comment: Surg ica Pathology Report Case: [id number] Authorizing Provider: Moe Castorena MD Collected: 03/13/2025 09:49 AM Ordering Location: Ambulatory Surgery Received: 03/13/2025 01:08 PM Pathologist: Solomon Argueta MD Specimens: A) - Colon, Ascending Polyp B) - Colon, Descending, Polyp, polyp x 2 Performed By: #### 6 6121-5 #### [facility] CLIA [id number] [address] [place] [address] [place] FINAL DIAGNOSIS Normal [facility] Comment on above: Order Comment: Speci men Type: TISSUE SPECIMEN Ordering Facility: [facility] Address: [address] [place] [address] Result Comment: A. C olon, ascending, polyp, biopsy: - Fragments of tubular adenoma. B. Colon, descending, polyps x 2, biopsy: - Tubular adenomas. at 1604 EDT Performed By: #### 6 6121-5 #### [facility] CLIA [id number] [address] [place] [address] STATES OF [facility] FINAL PERFORMING LAB Normal [facility] Comment on above: Order Comment: Speci men Type: TISSUE SPECIMEN Ordering Facility: [facility] Address: [address] [place] [address] Result Comment: Diag nostic interpretation performed at: [facility], [address] [place] [address] CLIA# [id number] Broacher: Deuce Velazquez MD Performed By: #### 6 6121-5 #### [facility] CLIA [id number] [address] [place] [address] [place] HEATH[place] GROSS DESCRIPTION Normal [facility] Comment on above: Order Comment: Speci men Type: TISSUE SPECIMEN Ordering Facility: [facility] Address: [address] [place] [address] Result Comment: A. C olon, Ascending Polyp Received in formalin are multiple segments of tran polypoid tissue aggregating to 1.4 x 0.4 x 0.2 cm. No stalks are present. The lines of resection are noted. The larger specimen is bisected. The smaller specimens are not sectioned. Totally submitted in one cassette. B. Colon, Descending, Polyp Received in formalin are two segments of tran polypoid tissue aggregating to 0.9 x 0.4 x 0.3 cm. No stalks are present. The lines of resection are noted. The specimens are bisected and totally submitted in one cassette. DB March 14, 2025 12:46 AM Gross examination performed at [facility], [address] [place] [address] Performed By: #### 6 6121-5 #### [facility] CLIA [id number] [address] [place] [address] [id number] [place] [address] CNOVon 02-21-2025 CNOV Office Visit (GENSWS) EASTONBALBINAESTRADA L ([id number]) 1965 M Date Time Provider Department 02/21/25 8:00 AM ROSHNI BAIN During your visit today, we recorded the following information about you: Pulse Respiration Blood pressure Weight 88/minute 14/minute 147/92 119.4 kg Roshni Bain APRN.POLE SETTER 02/21/2025 8:15 AM Signed HISTORY AND PHYSICAL Estrada Chacko Easton : 1965 REFERRING PHYSICIAN: No referring provider defined for this encounter. CHIEF COMPLAINT: Patient presents with: Consult: Due for colonoscopy. Denies GI issues HPI: Estrada is a 59 year old male referred for endoscopy. Estrada notes due for screening colonoscopy-hx of polyps (2019). Estrada denies abdominal pain. Estrada denies diarrhea. Estrada denies constipation. Estrada denies a change in bowel habits. Estrada denies melena. Estrada denies bright red blood per rectum. Estrada denies hemorrhoids. Estrada denies family history of colon issues. Estrada denies heartburn. Estrada denies dysphagia. Estrada denies a history of ulcers/ peptic ulcer disease. Estrada has undergone prior endoscopy. Last colonoscopy was 01/[address] Leung at [facility]. Sedation: Midazolam 7 mg IV, Fentanyl 50 micrograms IV, Diphenhydramine 50 mg IV Impression: - One 3 to 7 mm polyp in the transverse colon, removed with a cold snare. Resected and retrieved. - One 3 to 7 mm polyp in the descending colon, removed with a cold snare. Resected and retrieved. - Non-bleeding internal hemorrhoids. CONVERTED FINAL DIAGNOSIS 1. Colon, transverse polyp, biopsy (A) - Colonic mucosa with no pathologic diagnostic abnormality; see comment. 2. Colon, left polyp, biopsy (B) - Tubular adenoma. SS/glw 01/17/2020 CONVERTED DIAGNOSIS COMMENT 1. Additional deeper levels were also examined. Current Outpatient Medications Medication Sig tirzepatide, weight loss (ZEPBOUND) 12.5 mg/0.5 mL pen injector Inject 12.5 mg subcutaneously one time a week. No current facility-administere d medications for this visit. ALLERGIES: Patient has no known allergies. PAST MEDICAL HISTORY Diagnosis Date NEGATIVE MEDICAL HISTORY Snoring PAST SURGICAL HISTORY Procedure Laterality Date CATARACT SURGERY, COMPLEX 2009 bilateral COLONOSCOP W/ OR W/O [facility] SPEC 08/25/2017 Colonoscopy COLONOSCOP W/ OR W/O [facility] SPEC 11/02/2017 Colonoscopy COLONOSCOP W/ OR W/O [facility] SPEC 01/15/2020 Colonoscopy PAST SURGICAL HISTORY OF Left 2018 Rotator cuff surgery REPAIR UMBILICAL BETO,5+Y/O,REDUC 08/20/13 simple SHOULDER ARTHROSCOPY/SURGERY 2008 right, rotator cuff repair FAMILY HISTORY Problem Relation Age of Onset Diabetes Father Cancer Mother stomach Breast Cancer Mother None Sister SOCIAL HISTORY[1] REVIEW OF SYMPTOMS: REVIEW OF SYSTEMS: General: The patient denies fatigue, + weight loss, denies weight gain, denies feeling hot, and feelings of cold. Eyes: The patient denies glaucoma, + eye injury/surgery, denies glasses or contacts. Ear/Nose/Throat: The patient denies allergies, denies hayfever, denies ear infections, and denies bloody noses. Cardiovascular: The patient denies chest pain, denies heart disease, + high blood pressure, denies high cholesterol, and denies poor circulation. Respiratory: The patient denies tuberculosis, denies pneumonia, denies frequent cough, denies shortness of breath, and denies coughing up blood. Gastrointestinal: The patient denies difficulty swallowing, denies acid reflux, denies ulcers, denies jaundice/hepatitis, denies gallbladder problems, denies vomiting, denies black or tarry stools, denies hemorrhoids, denies bleeding from rectum, denies diverticulitis, denies constipation, denies diarrhea, denies loss of stool control, and denies hernias. Kidney/Bladder: The patient denies kidney stones, denies urine infections, and denies bloody urine. Skin: The patient denies a history of skin cancer, denies bleeding/changing moles, and denies a history of skin rash. Neurologic: The patient denies a history of epilepsy/convulsions , denies headaches, denies head/spinal injuries, and denies stroke/TIA. Psychiatric: The patient denies psychiatric medications, denies depression, and denies voices. Endocrine: The patient denies thyroid disorders, denies diabetes, and denies hormonal problems. Hematologic: The patient denies a history of bruising, denies bleeding, and denies anemia. Infections: The patient denies a history of measles and mumps, denies rheumatic fever, and denies sexually transmitted diseases. Musculoskeletal: The patient denies back pain/injury, + back problems, denies sciatica, denies knee/foot trouble, denies arthritis, or denies gout. PHYSICAL EXAMINATION: General: The patient is 59 year old, male well nourished, well hydrated in no acute distress. The patient is or (more content not included)... Normal [facility] Basic Metabolic Profile (BMP )on 08-21-2024 BUN/CRE 16.5 RATIO Normal 10-20 [facility] Comment on above: Performed By: #### L 501.9985, L500.2500 #### [facility] [address] [place], [address] CA,Total 9.5 mg/dL Normal 8.5-10.1 [facility] Comment on above: Performed By: #### L 501.9985, L500.2500 #### [facility] [address] [place], [address] Chloride [Moles/Vol] 104 mmol/L Normal 98-107 [facility] Comment on above: Performed By: #### L 501.9985, L500.2500 #### [facility] [address] [place], [address] CO2 [Moles/Vol] 30.0 mmol/L Normal 21.0-32.0 [facility] Comment on above: Performed By: #### L 501.9985, L500.2500 #### [facility] [address] [place], [address] Creatinine [Mass/Vol] 0.97 mg/dL Normal 0.70-1.30 [facility] Comment on above: Result Comment: The validity of the calculated GFR GFRAA in patients over 70 years has not been determined. Clinical correlation is essential. Performed By: #### L 501.9985, L500.2500 #### [facility] [address] [place], [address] EST GFR - AA 101 mL/min Normal >60 [facility] Comment on above: Result Comment: Afri can Latvian GFR Calc Performed By: #### L 501.9985, L500.2500 #### [facility] [address] [place], [address] GAP 4 Low 5-15 [facility] Comment on above: Performed By: #### L 501.9985, L500.2500 #### [facility] [address] [place], [address] GFR/1.73 sq M.predicted among non-blacks MDRD (S/P/Bld) [Vol rate/Area] 84 mL/min/{1.73_m2} Normal >60 [facility] Comment on above: Result Comment: Non- GFR Calc Performed By: #### L 501.9985, L500.2500 #### [facility] [address] [place], [address] Glucose [Mass/Vol] 117 mg/dL High 74-106 [facility] Comment on above: Result Comment: Fast ing Glucose result from 100 to 125 mg/dL suggests IMPAIRED HOMEOSTASIS per A.D.A. criteria. Performed By: #### L 501.9985, L500.2500 #### [facility] [address] [place], [address] Potassium [Moles/Vol] 4.7 mmol/L Normal 3.5-5.1 [facility] Comment on above: Performed By: #### L 501.9985, L500.2500 #### [facility] [address] [place], [address] Sodium [Moles/Vol] 138 mmol/L Normal 136-145 [facility] Comment on above: Performed By: #### L 501.9985, L500.2500 #### [facility] [address] [place], [address] Urea nitrogen [Mass/Vol] 16 mg/dL Normal 7-18 [facility] Comment on above: Performed By: #### L 501.9985, L500.2500 #### [facility] [address] [place], [address] Blood urea nitrogen (BUN)/cr eatinine ratioOrdered By: Ruchi Brewer on 08-21-2024 Urea nitrogen/Creatinine [Mass ratio] 16.5 mg/mg 10-20 [facility] Carbon dioxide measurementOr dered By: Ruchi Brewer on 08-21-2024 CO2 [Moles/Vol] 30.0 mmol/L 21.0-32.0 [facility] Chloride measurementOrdered By: Ruchi Brewer on 08-21-2024 Chloride [Moles/Vol] 104 mmol/L 98-107 [facility] Estimated glomerular filtrat ion rate (GFR) AmericanOrdered By: Ruchi Brewer on 08-21-2024 Estimated GFR (MDRD) Amer 101 mL/min >60 [facility] Comment on above: GFR Calc Glomerular filtration rate ( GFR) estimationOrdered By: Ruchi Brewer on 08-21-2024 Estimated GFR (MDRD) Non-Af Amer 84 mL/min >60 [facility] Comment on above: Non- GFR Calc GFR/1.73 sq M.predicted among non-blacks MDRD (S/P/Bld) [Vol rate/Area] 84 mL/min/{1.73_m2} >60 [facility] Comment on above: Non- GFR Calc Glucose measurementOrdered B y: Ruchi Breewr on 08-21-2024 Glucose [Mass/Vol] 117 mg/dL High 74-106 [facility] Comment on above: Fasting Glucose resu lt from 100 to 125 mg/dL suggests IMPAIRED HOMEOSTASIS per A.D.A. criteria. Hemoglobin A1con 08-21-2024 HbA1c (Bld) [Mass fraction] 6.3 % High 3.8-5.6 [facility] Comment on above: Result Comment: Norm al < 5.7 % Prediabetic 5.7 - 6.4 % Diabetic >or= 6.5 % Please note range changes. Performed By: #### L 501.9985, L500.2500 #### [facility] [place], [address] Hemoglobin A1c percentageOrd ered By: Ruchi Brewer on 08-21-2024 HbA1c (Bld) [Mass fraction] 6.3 % High 3.8-5.6 [facility] Comment on above: Normal < 5.7 % Predi abetic 5.7 - 6.4 % Diabetic >or= 6.5 % Please note range changes. Potassium measurementOrdered By: Ruchi Brewer on 08-21-2024 Potassium [Moles/Vol] 4.7 mmol/L 3.5-5.1 [facility] Serum anion gap measurementO rdered By: Ruchi Brewer on 08-21-2024 Anion gap [Moles/Vol] 4 mmol/L Low 5-15 [facility] Serum or plasma calcium estrellita urement (mass/volume)Ordered By: Ruchi Brewer on 08-21-2024 Calcium [Mass/Vol] 9.5 mg/dL 8.5-10.1 [facility] Serum or plasma creatinine m easurement (mass/volume)Ordered By: Ruchi Brewer on 08-21-2024 Creatinine [Mass/Vol] 0.97 mg/dL 0.70-1.30 [facility] Comment on above: The validity of the calculated GFR & GFRAA in patients over 70 years has not been determined. Clinical correlation is essential. Serum or plasma urea nitroge n measurement (mass/volume)Ordered By: Ruchi Brewer on 08-21-2024 Urea nitrogen [Mass/Vol] 16 mg/dL 7-18 [facility] Sodium levelOrdered By: Ruchi Brewer on 08-21-2024 Sodium [Moles/Vol] 138 mmol/L 136-145 [facility] 12 Lead EKGon 07-09-2024 12 Lead EKG [facility] [address] [place] [address] 12 Lead EKG 07/09/24 1403 MR#: [id number] Acct: [id number] Name: ESTRADA MCCORMACK Jr. Rep #: [id number] : 1965 58 From: Harry See MD Attending Dr: Dr. Judith Haynes MD Status: REG CLI Ordering Dr: Judith Haynes MD Date: 07/09/24 Location: [place] Sex: M C Admitted: Test Reason : PRE OP Blood Pressure : */* mmHG Vent. Rate : 101 BPM Atrial Rate : 101 BPM P-R Int : 146 ms QRS Dur : 80 ms QT Int : 344 ms P-R-T Axes : 63 -42 47 degrees QTcB Int : 446 ms Sinus tachycardia Left axis deviation Possible Lateral infarct , age undetermined Abnormal ECG Confirmed by Harry See ([id number]), managing editor ANAMARIA COURTNEY ([id number]) on 07/10/2024 7:17:50 AM Referred By: Judith Haynes Confirmed By: Harry See 07/10/24 0717 Date Harry See MD CC: Dr. Ruchi Brewer DO; Dr. Judith Haynes MD Signed Normal [facility] Absolute neutrophil countOrd ered By: Judith Haynes on 07-09-2024 Neutrophils (Bld) [#/Vol] 2.3 10*3/uL 2.0-7.7 [facility] Albumin, Serumon 07-09-2024 Albumin [Mass/Vol] 3.4 g/dL Normal 3.2-5.0 [facility] Comment on above: Performed By: #### L 100.0100, L500.2500, L501.1800 ####[facility] [address] [place], [address] Basic Metabolic Profile (BMP )on 07-09-2024 BUN/CRE 16.6 RATIO Normal 10-20 [facility] Comment on above: Performed By: #### L 100.0100, L500.2500, L501.1800 #### [facility] [address] [place], [address] CA,Total 8.8 mg/dL Normal 8.5-10.1 [facility] Comment on above: Performed By: #### L 100.0100, L500.2500, L501.1800 #### [facility] [address] [place], [address] Chloride [Moles/Vol] 104 mmol/L Normal 98-107 [facility] Comment on above: Performed By: #### L 100.0100, L500.2500, L501.1800 #### [facility] [address] [place], [address] CO2 [Moles/Vol] 29.0 mmol/L Normal 21.0-32.0 [facility] Comment on above: Performed By: #### L 100.0100, L500.2500, L501.1800 #### [facility] [address] [place], [address] Creatinine [Mass/Vol] 1.45 mg/dL High 0.70-1.30 [facility] Comment on above: Result Comment: The validity of the calculated GFR GFRAA in patients over 70 years has not been determined. Clinical correlation is essential. Performed By: #### L 100.0100, L500.2500, L501.1800 #### [facility] [address] [place], [address] EST GFR - AA 64 mL/min Normal >60 [facility] Comment on above: Result Comment: Afri can Latvian GFR Calc Performed By: #### L 100.0100, L500.2500, L501.1800 #### [facility] [address] [place], [address] GAP 3 Low 5-15 [facility] Comment on above: Performed By: #### L 100.0100, L500.2500, L501.1800 #### [facility] [address] [place], [address] GFR/1.73 sq M.predicted among non-blacks MDRD (S/P/Bld) [Vol rate/Area] 53 mL/min/{1.73_m2} Low >60 [facility] Comment on above: Result Comment: Non- GFR Calc Performed By: #### L 100.0100, L500.2500, L501.1800 #### [facility] [address] [place], [address] Glucose [Mass/Vol] 111 mg/dL High 74-106 [facility] Comment on above: Result Comment: Fast ing Glucose result from 100 to 125 mg/dL suggests IMPAIRED HOMEOSTASIS per A.D.A. criteria. Performed By: #### L 100.0100, L500.2500, L501.1800 #### [facility] [address] [place], [address] Potassium [Moles/Vol] 4.7 mmol/L Normal 3.5-5.1 [facility] Comment on above: Result Comment: Slig ht Hemolysis, Result may be falsely increased. Performed By: #### L 100.0100, L500.2500, L501.1800 #### [facility] [address] [place], [address] Sodium [Moles/Vol] 136 mmol/L Normal 136-145 [facility] Comment on above: Performed By: #### L 100.0100, L500.2500, L501.1800 #### [facility] [address] [place], [address] Urea nitrogen [Mass/Vol] 24 mg/dL High 7- [facility] Comment on above: Performed By: #### L 100.0100, L500.2500, L501.1800 #### [facility] [address] [place], [address] Basophil percentageOrdered B y: Judith Haynes on 07-09-2024 Basophils/100 WBC (Bld) 0.6 % 0-1 [facility] Blood urea nitrogen (BUN)/cr eatinine ratioOrdered By: Judith Haynes on 07-09-2024 Urea nitrogen/Creatinine [Mass ratio] 16.6 mg/mg 10-20 [facility] CBC W/Diff, Automatedon Absolute Lymph 1.90 X10 3/uL Normal 0.83-4.51 [facility] Comment on above: Performed By: #### L 100.0100, L500.2500, L501.1800 #### [facility] [address] [place], [address] Absolute Neut 2.3 X10 3/uL Normal 2.0-7.7 [facility] Comment on above: Performed By: #### L 100.0100, L500.2500, L501.1800 #### [facility] [address] [place], [address] Basophils/100 WBC (Bld) 0.6 % Normal 0-1 [facility] Comment on above: Performed By: #### L 100.0100, L500.2500, L501.1800 #### [facility] [address] [place], [address] Eosinophils/100 WBC (Bld) 1.6 % Normal 0-5 [facility] Comment on above: Performed By: #### L 100.0100, L500.2500, L501.1800 #### [facility] [address] [place], [address] Erythrocyte distribution width (RBC) [Ratio] 12.7 % Normal 11.6-14.6 [facility] Comment on above: Performed By: #### L 100.0100, L500.2500, L501.1800 #### [facility] [address] [place], [address] Hematocrit (Bld) [Volume fraction] 48.3 % Normal 40-54 [facility] Comment on above: Performed By: #### L 100.0100, L500.2500, L501.1800 #### [facility] [address] [place], [address] Hemoglobin (Bld) [Mass/Vol] 16.2 g/dL Normal 13.0-16.5 [facility] Comment on above: Performed By: #### L 100.0100, L500.2500, L501.1800 #### [facility] [address] [place], [address] IG% 0.400 Normal 0.0-0.9 [facility] Comment on above: Result Comment: IG% - Immature Granulocytes (promyelocytes, myelocytes and metamyelocytes) > 1% indicates that a LEFT SHIFT is Present. Performed By: #### L 100.0100, L500.2500, L501.1800 #### [facility] [address] [place], [address] Lymphocytes/100 WBC (Bld) 37.1 % Normal 19-41 [facility] Comment on above: Performed By: #### L 100.0100, L500.2500, L501.1800 #### [facility] [address] [place], [address] MCH (RBC) [Entitic mass] 29.7 pg Normal 27.0-32.0 [facility] Comment on above: Performed By: #### L 100.0100, L500.2500, L501.1800 #### [facility] [address] [place], [address] MCHC (RBC) [Mass/Vol] 33.5 g/dL Normal 32-36 [facility] Comment on above: Performed By: #### L 100.0100, L500.2500, L501.1800 #### [facility] [address] [place], [address] MCV (RBC) [Entitic vol] 88.6 fL Normal 80-94 [facility] Comment on above: Performed By: #### L 100.0100, L500.2500, L501.1800 #### [facility] [address] [place], [address] Monocytes/100 WBC (Bld) 16.4 % High 0-10 [facility] Comment on above: Performed By: #### L 100.0100, L500.2500, L501.1800 #### [facility] [address] [place], [address] Neutrophils/100 WBC (Bld) 43.9 % Low 47-70 [facility] Comment on above: Performed By: #### L 100.0100, L500.2500, L501.1800 #### [facility] [address] [place], [address] Nucleated RBC (Bld) [#/Vol] 0 10*3/uL Normal 0-5 [facility] Comment on above: Performed By: #### L 100.0100, L500.2500, L501.1800 #### [facility] [address] [place], [address] Platelet mean volume (Bld) [Entitic vol] 9.6 fL Normal 6.2-12.0 [facility] Comment on above: Performed By: #### L 100.0100, L500.2500, L501.1800 #### [facility] [address] [place], [address] Platelets (Bld) [#/Vol] 192 10*3/uL Normal 150-450 [facility] Comment on above: Performed By: #### L 100.0100, L500.2500, L501.1800 #### [facility] [address] [place], [address] RBC (Bld) [#/Vol] 5.45 10*6/uL Normal 4.6-6.2 [facility] Comment on above: Performed By: #### L 100.0100, L500.2500, L501.1800 #### [facility] [address] [place], [address] RDW SD 41.7 fl Normal 35.1-43.9 [facility] Comment on above: Performed By: #### L 100.0100, L500.2500, L501.1800 #### [facility] [address] [place], [address] WBC (Bld) [#/Vol] 5.1 10*3/uL Normal 4.4-11.0 [facility] Comment on above: Performed By: #### L 100.0100, L500.2500, L501.1800 #### [facility] [address] [place], [address] Carbon dioxide measurementOr dered By: Judith Haynes on 07-09-2024 CO2 [Moles/Vol] 29.0 mmol/L 21.0-32.0 [facility] Chloride measurementOrdered By: Judith Haynes on 07-09-2024 Chloride [Moles/Vol] 104 mmol/L 98-107 [facility] Eosinophil percentageOrdered By: Judith Haynes on 07-09-2024 Eosinophils/100 WBC (Bld) 1.6 % 0-5 [facility] Erythrocyte distribution wid th ratioOrdered By: Judith Haynes on 07-09-2024 Erythrocyte distribution width (RBC) [Ratio] 12.7 % 11.6-14.6 [facility] Erythrocyte distribution wid th standard deviationOrdered By: Judith Haynes on 07-09-2024 Erythrocyte distribution width (RBC) [Entitic vol] 41.7 fL 35.1-43.9 [facility] Estimated glomerular filtrat ion rate (GFR) AmericanOrdered By: Judith Haynes on 07-09-2024 Estimated GFR (MDRD) Amer 64 mL/min >60 [facility] Comment on above: GFR Calc Extremity Lower without Cont raon 07-09-2024 Extremity Lower without Contra [facility] [address] [place], [place] [address] Extremity Lower without Contra MR#: [id number] Acct: [id number] Name: EASTONESTRADA GARCIA Rep #: [id number] : 1965 M 58 From: Nish Stone MD PCP: Dr. Ruchi Brewer, DO Status: REG CLI Study: Extremity Lower without Contra Date of Exam: 0 07/09/24 Exam# [id number] Ordering Dr: Judith Haynes MD [id number] CT RIGHT LOWER EXTREMITY WITH 3-D IMAGING CLINICAL INDICATION: PAIN IN RIGHT KNEE TECHNIQUE: Axial CT images of the right lower extremity (including right hip, right knee, and right ankle) was performed without IV contrast material. Coronal and sagittal reformats were provided. The protocol utilizes one or more of the following dose reduction techniques: automated exposure control, adjustment of mA and/or kV according to patient size, and/or use of iterative reconstruction technique. RADIATION DOSAGE (If Supplied By Facility): CTDIvol = ( 18.76 ) mGy, DLP = ( 1228.81 ) mGycm COMPARISON: No relevant prior comparison study available. FINDINGS: Bones: There is mild degenerative arthrosis of the right hip joint with joint space narrowing, marginal osteophyte formation, and tiny subchondral cyst formation in the superolateral aspect of the right acetabulum. There is tricompartment degenerative arthrosis of the right knee joint, most pronounced in the medial femorotibial compartment. There is moderate to severe joint space narrowing, marginal osteophyte formation, and subchondral sclerosis. Unremarkable right ankle. Osseous structures are intact without evidence of fracture or dislocation. No lytic or blastic osseous masses. Soft Tissues: There is a small left fat-containing inguinal hernia. There is a small right knee joint effusion. There is a 4 mm ossified loose body in the posterior femorotibial joint recess (axial series 2 image 297). The deep soft tissue structures are otherwise unremarkable. The superficial soft tissues are unremarkable without evidence of edema, hematoma, or foreign body. CT/Extremity Lower without Contra IMPRESSION: Tricompartment degenerative arthrosis of the right knee joint, most pronounced in the medial femorotibial compartment. Small right knee joint effusion, with a 4 mm ossified loose body in the posterior femorotibial joint recess. Electronically Signed: Nish Stone MD at 14:48 EST , CC: Dr. Ruchi Brewer DO; Dr. Judith Haynes MD Kiln Stoker: Signed Normal [facility] Glomerular filtration rate ( GFR) estimationOrdered By: Judith Haynes on 07-09-2024 Estimated GFR (MDRD) Non-Af Amer 53 mL/min Low >60 [facility] Comment on above: Non- GFR Calc Glucose measurementOrdered B y: Judith Haynes on 07-09-2024 Glucose [Mass/Vol] 111 mg/dL High 74-106 [facility] Comment on above: Fasting Glucose resu lt from 100 to 125 mg/dL suggests IMPAIRED HOMEOSTASIS per A.D.A. criteria. Hematocrit Auto (Bld) [Volum e fraction]Ordered By: Judith Haynes on 07-09-2024 Hematocrit (Bld) [Volume fraction] 48.3 % 40-54 [facility] Hemoglobin measurementOrdere d By: Judith Haynes on 07-09-2024 Hemoglobin (Bld) [Mass/Vol] 16.2 g/dL 13.0-16.5 [facility] Immature granulocytes/100 WB C Auto (Bld)Ordered By: Judith Haynes on 07-09-2024 Immature granulocytes/100 WBC (Bld) 0.400 % 0.0-0.9 [facility] Comment on above: IG% - Immature Granu locytes (promyelocytes, myelocytes and metamyelocytes) > 1% indicates that a LEFT SHIFT is Present. Lymphocytes Auto (Unsp spec) [#/Vol]Ordered By: Judith Haynes on 07-09-2024 Lymphocytes (Bld) [#/Vol] 1.90 10*3/uL 0.83-4.51 [facility] Lymphocytes/100 WBC Auto (Un sp spec)Ordered By: uJdith Haynes on 07-09-2024 Lymphocytes/100 WBC (Bld) 37.1 % 19-41 [facility] MCV (mean corpuscular volume ) determinationOrdered By: Judith Haynes on 07-09-2024 MCV (RBC) [Entitic vol] 88.6 fL 80-94 [facility] Mean corpuscular hemoglobin (MCH) determinationOrdered By: Judith Haynes on 07-09-2024 MCH (RBC) [Entitic mass] 29.7 pg 27.0-32.0 [facility] Mean corpuscular hemoglobin concentration (MCHC) determinationOrdered By: Judith Haynes on 07-09-2024 MCHC (RBC) [Mass/Vol] 33.5 g/dL 32-36 [facility] Mean platelet volume determi nationOrdered By: Judith Haynes on 07-09-2024 Platelet mean volume (Bld) [Entitic vol] 9.6 fL 6.2-12.0 [facility] Monocyte percentageOrdered B y: Judith Haynes on 07-09-2024 Monocytes/100 WBC (Bld) 16.4 % High 0-10 [facility] Neutrophil percentageOrdered By: Judith Haynes on 07-09-2024 Neutrophils/100 WBC (Bld) 43.9 % Low 47-70 [facility] Nucleated red blood cell per centageOrdered By: Judith Haynes on 07-09-2024 Nucleated RBC/100 WBC (Bld) [Ratio] 0 % 0-5 [facility] Platelet countOrdered By: St leon Haynes on 07-09-2024 Platelets (Bld) [#/Vol] 192 10*3/uL 150-450 [facility] Potassium measurementOrdered By: Judith Haynes on 07-09-2024 Potassium [Moles/Vol] 4.7 mmol/L 3.5-5.1 [facility] Comment on above: Slight Hemolysis, Re sult may be falsely increased. RBC Auto (Bld) [#/Vol]Ordere d By: Judith Haynes on 07-09-2024 RBC (Bld) [#/Vol] 5.45 10*6/uL 4.6-6.2 [facility] Serum anion gap measurementO rdered By: Judith Haynes on 07-09-2024 Anion gap [Moles/Vol] 3 mmol/L Low 5-15 [facility] Serum or plasma albumin estrellita urement (mass/volume)Ordered By: Judith Haynes on 07-09-2024 Albumin [Mass/Vol] 3.4 g/dL 3.2-5.0 [facility] Serum or plasma calcium estrellita urement (mass/volume)Ordered By: Judith Haynes on 07-09-2024 Calcium [Mass/Vol] 8.8 mg/dL 8.5-10.1 [facility] Serum or plasma creatinine m easurement (mass/volume)Ordered By: Judith Haynes on 07-09-2024 Creatinine [Mass/Vol] 1.45 mg/dL High 0.70-1.30 [facility] Comment on above: The validity of the calculated GFR & GFRAA in patients over 70 years has not been determined. Clinical correlation is essential. Serum or plasma urea nitroge n measurement (mass/volume)Ordered By: Judith Haynes on 07-09-2024 Urea nitrogen [Mass/Vol] 24 mg/dL High 7-18 [facility] Sodium levelOrdered By: Mark Haynes on 07-09-2024 Sodium [Moles/Vol] 136 mmol/L 136-145 [facility] White blood cell (WBC) count Ordered By: Judith Haynes on 07-09-2024 WBC (Bld) [#/Vol] 5.1 10*3/uL 4.4-11.0 [facility] Venous Duplex US, Unilateral on 05-06-2024 Venous Duplex US, Unilateral [facility] [address] [place] [address] Venous Duplex US, Unilateral 05/06/24 4137 MR#: [id number] Acct: [id number] Name: ESTRADA MCCORMACK Jr. Rep #: [id number] : 1965 58 From: Leroy Estrella MD Attending Dr: Dr. Judith Haynes MD Status: REG CLI Ordering Dr: Judith Haynes MD Date: 05/06/24 Location: CVS Sex: M C Admitted: Reason For Study: Swelling LLE RIGHT LEFT CFV is compressible, spontaneous, phasic, GSV is normal. competent and demonstrates normal CFV is compressible, spontaneous, phasic, augmentation. competent, and demonstrates normal Procedure augmentation. This is a venous duplex using B-mode, color FV is compressible, spontaneous, phasic, flow and spectral Doppler. competent and demonstrates normal Exam performed in department. augmentation. A preliminary report was called and/or faxed POP V is compressible, spontaneous, phasic, to Dr. Haynes. competent and demonstrates normal augmentation. T/P Trunk is compressible. PTV is compressible. LT PerV is compressible. VL/Venous Duplex US, Unilateral Interpretation Summary Deep veins of the left lower extremity are patent and compressible segmentally. There is no evidence of left lower extremity deep vein thrombosis. Valvular competence appears intact within the proximal deep venous system on the left . The left great saphenous vein appears patent and compressible segmentally. The right common femoral vein is patent and compressible . Ordering Physician: Judith Haynes Referring Physician: Ruchi Brewer Performed By: Tracie Loving, RDCS, RVT 111651 Date Leroy Estrella MD CC: Dr. Ruchi Brewer, DO; Dr. Judith Haynes MD Date Dictated: 05/06/241556 Date Transcribed: 05/06/241651 Kiln Stoker: Signed Normal [facility] Hemoglobin A1con 05-01-2024 HbA1c (Bld) [Mass fraction] 6.3 % High 3.8-5.6 [facility] Comment on above: Result Comment: Norm al < 5.7 % Prediabetic 5.7 - 6.4 % Diabetic >or= 6.5 % Please note range changes. Performed By: #### L 501.9910, L500.3400, L501.9985, L500.4100 #### [facility] [address] [place], [address] Lipid Profileon 05-01-2024 Cholesterol [Mass/Vol] 171 mg/dL Normal 200 [facility] Comment on above: Result Comment: <200 mg/dL Desirable 200-240 mg/dL Borderline >240 mg/dL High Risk Performed By: #### L 501.9910, L500.3400, L501.9985, L500.4100 #### [facility] [address] [place], [address] Cholesterol in HDL [Mass/Vol] 41 mg/dL Normal [facility] Comment on above: Result Comment: The drugs N-Acetylcysteine and Metamizole may falsely depress this assay. Reference Range HDL <40 mg/dL Low HDL Cholesterol HDL >or= 60 mg/dL High HDL Cholesterol Performed By: #### L 501.9910, L500.3400, L501.9985, L500.4100 #### [facility] [address] [place], [address] Cholesterol in LDL [Mass/Vol] 71 mg/dL Normal 0-130 [facility] Comment on above: Performed By: #### L 501.9910, L500.3400, L501.9985, L500.4100 #### [facility] [address] [place] [place], [address] Cholesterol in VLDL [Mass/Vol] 59 mg/dL High 5-40 [facility] Comment on above: Performed By: #### L 501.9910, L500.3400, L501.9985, L500.4100 #### [facility] [address] [place], [address] Triglyceride [Mass/Vol] 296 mg/dL High [facility] Comment on above: Result Comment: The drugs N-Acetylcysteine and Metamizole may falsely depress this assay. Serum Triglycerides Reference Interval Normal <150 mg/dL Borderline high 150 - 199 mg/dL High 200 - 499 mg/dL Very High > or = 500 mg/dL Performed By: #### L 501.9910, L500.3400, L501.9985, L500.4100 #### [facility] [address] [place], [address] Liver Profileon 05-01-2024 Albumin [Mass/Vol] 3.4 g/dL Normal 3.2-5.0 [facility] Comment on above: Performed By: #### L 501.9910, L500.3400, L501.9985, L500.4100 #### [facility] [address] [place], [address] ALK P 108 U/L Normal 45-117 [facility] Comment on above: Performed By: #### L 501.9910, L500.3400, L501.9985, L500.4100 #### [facility] [address] [place], [address] ALT [Catalytic activity/Vol] 29 U/L Normal 16-61 [facility] Comment on above: Performed By: #### L 501.9910, L500.3400, L501.9985, L500.4100 #### [facility] [address] [place], [address] AST [Catalytic activity/Vol] 14 U/L Low 15-37 [facility] Comment on above: Performed By: #### L 501.9910, L500.3400, L501.9985, L500.4100 #### [facility] [address] [place], [address] Bilirubin [Mass/Vol] 0.90 mg/dL Normal 0.20-1.00 [facility] Comment on above: Result Comment: For patients on eltrombopag therapy, use of Dimension [place] TBIL is not recommended. Performed By: #### L 501.9910, L500.3400, L501.9985, L500.4100 #### [facility] [address] [place], [address] Bilirubin.direct [Mass/Vol] 0.21 mg/dL Normal 0.00-0.30 [facility] Comment on above: Performed By: #### L 501.9910, L500.3400, L501.9985, L500.4100 #### [facility] [address] [place], [address] Globulin (S) [Mass/Vol] 4.0 g/dL Normal 2.2-4.2 [facility] Comment on above: Performed By: #### L 501.9910, L500.3400, L501.9985, L500.4100 #### [facility] [address] [place], [address] T PROT 7.4 g/dL Normal 6.4-8.2 [facility] Comment on above: Performed By: #### L 501.9910, L500.3400, L501.9985, L500.4100 #### [facility] [address] [place], [address] PSA,Total - Annual Screenon 05-01-2024 PSA,TOT SCREEN 1.06 ng/mL Normal 0.00-4.00 [facility] Comment on above: Result Comment: This test was performed using the TPSA assay method for the [employer] chemistry system. Values obtained with different assay methods cannot be used interchangably. When changing PSA assays in the course of monitoring a patient, additional sequential testing should be carried out to confirm baseline values. Performed By: #### L 501.9910, L500.3400, L501.9985, L500.4100 #### [facility] [address] [place], [place], [address] .Auto Diffon 04-17-2024 Basophil, Absolute 0.0 10 3/mcL Normal 0.0-0.2 [facility] Comment on above: Performed By: #### A GABRIEL IZAGUIRRE #### [address] [address] Basophils/100 WBC (Bld) 0.2 % Normal 0.0-2.5 [facility] Comment on above: Performed By: #### GABRIEL NICHOLS #### [address] [address] Eosinophil, Absolute 0.0 10 3/mcL Normal 0.0-0.7 [facility] Comment on above: Performed By: #### GABRIEL NICHOLS #### [address] [address] Eosinophils/100 WBC (Bld) 0.0 % Normal 0.0-7.0 [facility] Comment on above: Performed By: #### GABRIEL NICHOLS #### [address] [address] Lymphocyte, Absolute 1.0 10 3/mcL Normal 0.9-4.3 [facility] Comment on above: Performed By: #### GABRIEL NICHLOS #### [address] [address] Lymphocytes/100 WBC (Bld) 6.4 % Low 20.0-40.0 [facility] Comment on above: Performed By: #### A GABRIEL IZAGUIRRE #### [address] [address] Monocyte, Absolute 1.3 10 3/mcL Normal 0.1-1.4 [facility] Comment on above: Performed By: #### A GABRIEL IZAGUIRRE #### [address] [address] Monocytes/100 WBC (Bld) 8.1 % Normal 2.0-13.0 [facility] Comment on above: Performed By: #### A GABRIEL IZAGUIRRE #### [address] [address] Neutrophils/100 WBC (Bld) 85.3 % High 50.0-75.0 [facility] Comment on above: Performed By: #### A GABRIEL IZAGUIRRE #### [address] [address] .GFRon 04-17-2024 GFR 107 ml/min/1.73sqm Normal [facility] Comment on above: Result Comment: GFR [...] Performed By: #### A GABRIEL IZAGUIRRE #### [address] [address] GFR Non- 88 ml/min/1.73sqm Normal [facility] Comment on above: Result Comment: GFR [...] Performed By: #### A GABRIEL IZAGUIRRE #### [address] [address] .NEUABSon 04-17-2024 Neutrophil, Absolute 13.8 10 3/mcL High 2.3-8.1 [facility] Comment on above: Performed By: #### GABRIEL NICHOLS #### [address] [address] BMPon 04-17-2024 BUN/Creatinine Ratio 22 ratio Normal 7-27 [facility] Comment on above: Performed By: #### GABRIEL NICHOLS #### [address] [address] Calcium [Mass/Vol] 8.5 mg/dL Normal 8.4-10.2 [facility] Comment on above: Performed By: #### GABRIEL NICHOLS #### [address] [address] Chloride [Moles/Vol] 100 mmol/L Normal 98-107 [facility] Comment on above: Performed By: #### GABRIEL NICHOLS #### [address] [address] CO2 [Moles/Vol] 29 mmol/L Normal 23-31 [facility] Comment on above: Performed By: #### GABRIEL NICHOLS #### [address] [address] Creatinine [Mass/Vol] 0.88 mg/dL Normal 0.70-1.30 [facility] Comment on above: Result Comment: Test ing performed on Siemens Dimension EXL analyzer using a modified kinetic Jf technique. Performed By: #### A GABRIEL IZAGUIRRE #### [address] [address] Electrolyte Balance 10.0 mEq/L Normal 4.0-15.0 [facility] Comment on above: Performed By: #### A GABRIEL IZAGUIRRE #### [address] [address] Glucose [Mass/Vol] 156 mg/dL High 80-115 [facility] Comment on above: Performed By: #### A GABRIEL IZAGUIRRE #### [address] [address] Potassium [Moles/Vol] 4.8 mmol/L Normal 3.5-5.1 [facility] Comment on above: Performed By: #### A GABRIEL IZAGUIRRE #### [address] [address] Sodium [Moles/Vol] 139 mmol/L Normal 136-145 [facility] Comment on above: Performed By: #### GABRIEL NICHOLS #### [address] [address] Urea nitrogen [Mass/Vol] 19 mg/dL High 7-18 [facility] Comment on above: Performed By: #### GABRIEL NICHOLS #### [address] [address] CBCon 04-17-2024 Erythrocyte distribution width (RBC) [Ratio] 13.7 % Normal 11.5-15.5 [facility] Comment on above: Performed By: #### GABRIEL NICHOLS #### [address] [address] Hematocrit (Bld) [Volume fraction] 43.6 % Normal 40.0-52.0 [facility] Comment on above: Performed By: #### GABRIEL NICHOLS #### [address] [address] Hgb 14.8 G/dL Normal 13.0-17.5 [facility] Comment on above: Performed By: #### A GABRIEL IZAGUIRRE #### [address] [address] MCH (RBC) [Entitic mass] 31.3 pg Normal 27.0-33.0 [facility] Comment on above: Performed By: #### A GABRIEL IZAGUIRRE #### [address] [address] MCHC 33.9 G/dL Normal 32.0-36.0 [facility] Comment on above: Performed By: #### A GABRIEL IZAGUIRRE #### [address] [address] MCV (RBC) [Entitic vol] 92.3 fL Normal 81.0-100.0 [facility] Comment on above: Performed By: #### A GABRIEL IZAGUIRRE #### [address] [address] Platelet 217 10 3/mcL Normal 150-450 [facility] Comment on above: Performed By: #### A GABRIEL IZAGUIRRE #### [address] [address] Platelet mean volume (Bld) [Entitic vol] 7.7 fL Normal 6.4-10.5 [facility] Comment on above: Performed By: #### A GABRIEL IZAGUIRRE #### [address] [address] RBC 4.72 10 6/mcL Normal 4.50-6.00 [facility] Comment on above: Performed By: #### A GABRIEL IZAGUIRRE #### [address] [address] WBC 16.1 10 3/mcL High 4.5-10.8 [facility] Comment on above: Performed By: #### A GABRIEL IZAGUIRRE #### [place] [address] [address] LABORATORYOrdered By: SYSTEM SYSTEM on 04-17-2024 Basophils [...] above: Interpretive Data: T esting performed on [employer] Dimension EXL analyzer using a modified kinetic [...] MCH (RBC) [Entitic mass] 31.3 pg Normal 27. 0 - 33.0 pg AO Workflow SS MCHC [...] [Mass/Vol] 19 mg/dL High 7 - 18 mg/d L AO ADM SS Urea nitrogen/Creatinine [Mass ratio] 22 ratio Normal 7 - 27 ratio AO ADM SS WBC (Bld) [#/Vol] 16.1 103/mcL High 4.5 - 10.8 10^3/mcL AO Workflow SS ABO/Rh (Gel)on 04-16-2024 ABO/Rh Interp Positive Invalid Interpretation Code [facility] Comment on above: Performed By: #### A ZINA ABSGEL #### [id number] [place], [place] [address] ABS (Gel)on 04-16-2024 ABSC Interp (Gel) Negative Normal [facility] Comment on above: Performed By: #### Deacon IZAGUIRRE ABSGEL #### [id number] [place], [place] [address] LABORATORYOrdered By: Heydi Lara on 04-16-2024 ABO [...] Sign Date: 04/16/2024 10:12:44 AM Ordering Provider: JUDITH HAYNES [facility] CT KNEE W/O CONTRAST LEFTon 03-22-2024 [...] Sign Date: 03/22/2024 11:02:11 AM Ordering Provider: JUDITH HAYNES Normal [facility] .Auto Diffon 03-21-2024 Basophil, Absolute 0.1 10 3/mcL Normal 0.0-0.2 [facility] Comment on above: Performed By: #### A BSGEL, ADIFF, ABOGEL, BMP, ANEU, CBC, GFR, ALB #### [address] [address] Basophils/100 WBC (Bld) 0.8 % Normal 0.0-2.5 [facility] Comment on above: Performed By: #### A BSGEL, ADIFF, ABOGEL, BMP, ANEU, CBC, GFR, ALB #### [address] [address] Eosinophil, Absolute 0.3 10 3/mcL Normal 0.0-0.4 [facility] Comment on above: Performed By: #### A BSGEL, ADIFF, ABOGEL, BMP, ANEU, CBC, GFR, ALB #### [address] [address] Eosinophils/100 WBC (Bld) 3.5 % Normal 0.0-7.0 [facility] Comment on above: Performed By: #### A BSGEL, ADIFF, ABOGEL, BMP, ANEU, CBC, GFR, ALB #### [address] [address] Lymphocyte, Absolute 2.1 10 3/mcL Normal 0.8-3.9 [facility] Comment on above: Performed By: #### A BSGEL, ADIFF, ABOGEL, BMP, ANEU, CBC, GFR, ALB #### [address] [address] Lymphocytes/100 WBC (Bld) 27.8 % Normal 10.0-50.0 [facility] Comment on above: Performed By: #### A BSGEL, ADIFF, ABOGEL, BMP, ANEU, CBC, GFR, ALB #### [address] [address] Monocyte, Absolute 0.6 10 3/mcL Normal 0.2-1.0 [facility] Comment on above: Performed By: #### A BSGEL, ADIFF, ABOGEL, BMP, ANEU, CBC, GFR, ALB #### [address] [address] Monocytes/100 WBC (Bld) 8.2 % Normal 1.7-13.0 [facility] Comment on above: Performed By: #### A BSGEL, ADIFF, ABOGEL, BMP, ANEU, CBC, GFR, ALB #### [address] [address] Neutrophils/100 WBC (Bld) 59.7 % Normal 37.0-80.0 [facility] Comment on above: Performed By: #### A BSGEL, ADIFF, ABOGEL, BMP, ANEU, CBC, GFR, ALB #### [address] [address] .GFRon 03-21-2024 GFR Non- 72 ml/min/1.73sqm Normal [facility] Comment on above: Result Comment: GFR [...] Performed By: #### A GABRIEL IZAGUIRRE #### [address] [address] GFR 87 ml/min/1.73sqm Normal [facility] Comment on above: Result Comment: GFR [...] Performed By: #### A GABRIEL IZAGUIRRE #### [address] [address] .NEUABSon 03-21-2024 Neutrophil, Absolute 4.6 10 3/mcL Normal 2.9-6.2 [facility] Comment on above: Performed By: #### A BSGEL, ADIFF, ABOGEL, BMP, ANEU, CBC, GFR, ALB #### [address] [address] ABO/Rh (Gel)on 03-21-2024 ABO/Rh Interp Positive Invalid Interpretation Code [facility] Comment on above: Performed By: #### A GABRIEL IZAGUIRRE #### [address] [address] ABS (Gel)on 03-21-2024 ABSC Interp (Gel) Negative Normal [facility] Comment on above: Performed By: #### A GABRIEL IZAGUIRRE #### [address] [address] ALBon 03-21-2024 Albumin Level 3.7 G/dL Normal 3.4-4.8 [facility] Comment on above: Performed By: #### A BSGEL, ADIFF, ABOGEL, BMP, ANEU, CBC, GFR, ALB #### [address] [address] BMPon 03-21-2024 BUN/Creatinine Ratio 25 ratio Normal 7-27 [facility] Comment on above: Performed By: #### A BSGEL, ADIFF, ABOGEL, BMP, ANEU, CBC, GFR, ALB #### [address] [address] Calcium [Mass/Vol] 8.8 mg/dL Normal 8.4-10.2 [facility] Comment on above: Performed By: #### A BSGEL, ADIFF, ABOGEL, BMP, ANEU, CBC, GFR, ALB #### [address] [address] Chloride [Moles/Vol] 105 mmol/L Normal 98-107 [facility] Comment on above: Performed By: #### A BSGEL, ADIFF, ABOGEL, BMP, ANEU, CBC, GFR, ALB #### [address] [address] CO2 [Moles/Vol] 26 mmol/L Normal 23-31 [facility] Comment on above: Performed By: #### A BSGEL, ADIFF, ABOGEL, BMP, ANEU, CBC, GFR, ALB #### [address] [address] Creatinine [Mass/Vol] 1.05 mg/dL Normal 0.70-1.30 [facility] Comment on above: Result Comment: Test ing performed on Siemens Dimension EXL analyzer using a modified kinetic Jf technique. Performed By: #### A BSGEL, ADIFF, ABOGEL, BMP, ANEU, CBC, GFR, ALB #### [address] [address] Electrolyte Balance 11.0 mEq/L Normal 4.0-15.0 [facility] Comment on above: Performed By: #### A BSGEL, ADIFF, ABOGEL, BMP, ANEU, CBC, GFR, ALB #### [address] [address] Glucose [Mass/Vol] 109 mg/dL Normal 80-115 [facility] Comment on above: Performed By: #### A BSGEL, ADIFF, ABOGEL, BMP, ANEU, CBC, GFR, ALB #### [address] [address] Potassium [Moles/Vol] 4.2 mmol/L Normal 3.5-5.1 [facility] Comment on above: Performed By: #### A BSGEL, ADIFF, ABOGEL, BMP, ANEU, CBC, GFR, ALB #### [place] [address] Sodium [Moles/Vol] 142 mmol/L Normal 136-145 [facility] Comment on above: Performed By: #### A BSGEL, ADIFF, ABOGEL, BMP, ANEU, CBC, GFR, ALB #### [address] [address] Urea nitrogen [Mass/Vol] 26 mg/dL High 7-18 [facility] Comment on above: Performed By: #### A BSGEL, ADIFF, ABOGEL, BMP, ANEU, CBC, GFR, ALB #### [address] [address] CBCon 03-21-2024 Erythrocyte distribution width (RBC) [Ratio] 13.6 % Normal 11.5-14.5 [facility] Comment on above: Order Comment: Pre-A dmission Testing Performed By: #### A BSGEL, ADIFF, ABOGEL, BMP, ANEU, CBC, GFR, ALB #### [address] [address] Hematocrit (Bld) [Volume fraction] 46.6 % Normal 42.0-52.0 [facility] Comment on above: Order Comment: Pre-A dmission Testing Performed By: #### A BSGEL, ADIFF, ABOGEL, BMP, ANEU, CBC, GFR, ALB #### [address] [place] [address] Hgb 16.0 G/dL Normal 14.0-18.0 [facility] Comment on above: Order Comment: Pre-A dmission Testing Performed By: #### A BSGEL, ADIFF, ABOGEL, BMP, ANEU, CBC, GFR, ALB #### [address] [address] MCH (RBC) [Entitic mass] 31.4 pg High 27.0-31.2 [facility] Comment on above: Order Comment: Pre-A dmission Testing Performed By: #### A BSGEL, ADIFF, ABOGEL, BMP, ANEU, CBC, GFR, ALB #### [address] [address] MCHC 34.3 G/dL Normal 31.8-35.4 [facility] Comment on above: Order Comment: Pre-A dmission Testing Performed By: #### A BSGEL, ADIFF, ABOGEL, BMP, ANEU, CBC, GFR, ALB #### [address] [address] MCV (RBC) [Entitic vol] 91.5 fL Normal 80.0-94.0 [facility] Comment on above: Order Comment: Pre-A dmission Testing Performed By: #### A BSGEL, ADIFF, ABOGEL, BMP, ANEU, CBC, GFR, ALB #### [address] [address] Platelet 196 10 3/mcL Normal 130-400 [facility] Comment on above: Order Comment: Pre-A dmission Testing Performed By: #### A BSGEL, ADIFF, ABOGEL, BMP, ANEU, CBC, GFR, ALB #### [address] [address] Platelet mean volume (Bld) [Entitic vol] 7.3 fL Low 7.4-10.4 [facility] Comment on above: Order Comment: Pre-A dmission Testing Performed By: #### A BSGEL, ADIFF, ABOGEL, BMP, ANEU, CBC, GFR, ALB #### [address], [place] [address] RBC 5.09 10 6/mcL Normal 4.04-6.13 [facility] Comment on above: Order Comment: Pre-A dmission Testing Performed By: #### A BSGEL, ADIFF, ABOGEL, BMP, ANEU, CBC, GFR, ALB #### [address] [place] [address] [place], [place] [address] WBC 7.7 10 3/mcL Normal 4.6-10.8 [facility] Comment on above: Order Comment: Pre-A dmission Testing Performed By: #### A BSGEL, ADIFF, ABOGEL, BMP, ANEU, CBC, GFR, ALB #### [address] [address] LABORATORYOrdered By: Shaggy Calderon on 03-21-2024 ABO and Rh group Nom (Bld) Blood group A Rh(D) positive Invalid Interpretation Code AO BB Auto SS Blood group antibody screen Ql Negative ABSC (03/21/24 2:55 PM) Normal AO BB Auto SS LABORATORYOrdered By: Vast on 03-21-2024 Albumin BCP dye [Mass/Vol] 3.7 [...] MCH (RBC) [Entitic mass] 31.4 pg High 27. 0 - 31.2 pg AO Workflow SS MCHC [...] [Mass/Vol] 26 mg/dL High 7 - 18 mg/d L AO ADM SS Urea nitrogen/Creatinine [Mass ratio] [...] MRSA (PCR) Not detected Normal Not Detected [facility] Comment on above: Result Comment: [place] [id number] Performed By: #### M RSAPCR #### [address] [address] MRSA PCR Int Normal [facility] Comment on above: Result Comment: MRSA [...] Below Performed By: #### M RSAPCR #### [address] [address] Vital Signs Date Time Vital Sign Value Performing Clinician Rolando barker 03-13-2025 10:35-0400 Diastolic blood pressure 84 mm[Hg] Moe Castorena MD Work Phone: [facility] 03-13-2025 10:35-0400 Heart rate 86 /min Moe Castorena MD Work Phone: [facility] 03-13-2025 10:35-0400 Respiratory rate 15 /min Moe Castorena MD Work Phone: [facility] 03-13-2025 10:35-0400 SaO2% (BldA) [Mass fraction] 95 % Moe Castorena MD Work Phone: [facility] 03-13-2025 10:35-0400 Systolic blood pressure 125 mm[Hg] Moe Castorena MD Work Phone: [facility] 03-13-2025 09:17-0400 Body mass index (BMI) [Ratio] 37.77 kg/m2 Moe Castorena MD Work Phone: [facility] 03-13-2025 09:17-0400 Body temperature 97.5 [degF] Moe Castorena MD Work Phone: [facility] 03-13-2025 09:17-0400 Body weight 119.4 kg Moe Castornea MD Work Phone: [facility] 02-22-2025 09:50-0400 Body temperature 97.59 [degF] Reuben Milian MD Work Phone: [facility] [employer] 02-22-2025 09:50-0400 Diastolic blood pressure 72 mm[Hg] Reuben Milian MD Work Phone: [facility] [employer] 02-22-2025 09:50-0400 Heart rate 80 /min Reuben Milian MD Work Phone: [facility] [employer] [facility] 02-22-2025 09:50-0400 Respiratory rate 16 /min Reuben Milian MD Work Phone: [facility] 02-22-2025 09:50-0400 Systolic blood pressure 118 mm[Hg] Reuben Milian MD Work Phone: [facility] [employer] [facility] 02-22-2025 09:35-0400 SaO2% (BldA) [Mass fraction] 96 % Reuben Milian MD Work Phone: [facility] [employer] 02-21-2025 07:59-0400 Body mass index (BMI) [Ratio] 37.77 kg/m2 Roshni Bain APRN.POLE SETTER Work Phone: [facility] 02-21-2025 07:59-0400 Body weight 119.39 kg Roshni Bain APRN.CNP Work Phone: [facility] 02-21-2025 07:59-0400 Diastolic blood pressure 92 mm[Hg] Roshni Jay DINKEY DISPATCHER.POLE SETTER Work Phone: [facility] 02-21-2025 07:59-0400 Heart rate 88 /min Roshni Jay DINKEY DISPATCHER.POLE SETTER Work Phone: [facility] 02-21-2025 07:59-0400 Respiratory rate 14 /min Roshni Jay DINKEY DISPATCHER.POLE SETTER Work Phone: [facility] 02-21-2025 07:59-0400 SaO2% (BldA) [Mass fraction] 97 % Roshni Jay DINKEY DISPATCHER.POLE SETTER Work Phone: [facility] 02-21-2025 07:59-0400 Systolic blood pressure 147 mm[Hg] Roshni Jay DINKEY DISPATCHER.POLE SETTER Work Phone: [facility] 04-17-2024 14:50-0400 Body temperature 97.52 [degF] DR JUDITH HAYNES MD [facility] 04-17-2024 14:50-0400 Diastolic Blood Pressure Non-Invasive 83 mm[Hg] DR JUDITH HAYNES MD [facility] 04-17-2024 14:50-0400 Heart rate 98 /min DR JUDITH HAYNES MD [facility] 04-17-2024 14:50-0400 Reason For Taking VItal Signs DR JUDITH HAYNES MD [facility] 04-17-2024 14:50-0400 Respiratory rate 18 /min DR JUDITH HAYNES MD [facility] 04-17-2024 14:50-0400 Systolic Blood Pressure Non-Invasive 156 mm[Hg] DR JUDITH HAYNES MD [facility] 04-17-2024 07:36-0400 Body temperature 98.06 [degF] DR JUDITH HAYNES MD [facility] 04-17-2024 07:36-0400 Diastolic Blood Pressure Non-Invasive 97 mm[Hg] DR JUDITH HAYNES MD [facility] 04-17-2024 07:36-0400 Heart rate 90 /min DR JUDITH HAYNES MD [facility] 04-17-2024 07:36-0400 Respiratory rate 20 /min DR JUDITH HAYNES MD [facility] 04-17-2024 07:36-0400 Systolic Blood Pressure Non-Invasive 148 mm[Hg] DR JUDITH HAYNES MD [facility] 04-17-2024 04:39-0400 Body temperature 97.88 [degF] DR JUDITH HAYNES MD [facility] 04-17-2024 04:39-0400 Diastolic Blood Pressure Non-Invasive 87 mm[Hg] DR JUDITH HAYNES MD [facility] 04-17-2024 04:39-0400 Heart rate 92 /min DR JUDITH HAYNES MD [facility] 04-17-2024 04:39-0400 Respiratory rate 20 /min DR JUDITH HAYNES MD [facility] 04-17-2024 04:39-0400 Systolic Blood Pressure Non-Invasive 151 mm[Hg] DR JUDITH HAYNES MD [facility] 04-16-2024 23:44-0400 Heart rate 107 /min DR JUDITH HAYNES MD [facility] 04-16-2024 19:58-0400 Heart rate 108 /min DR JUDITH HAYNES MD [facility] 04-16-2024 14:15-0400 Heart rate 96 /min DR JUDITH HAYNES MD [facility] 04-16-2024 10:40-0400 Body height 177.[address] JUDITH HAYNES MD [facility] 04-16-2024 10:40-0400 Body weight 131.[address] JUDITH HAYNES MD [facility] 04-16-2024 10:40-0400 Body weight 41.69 kg/m2 DR JUDITH HAYNES MD [facility] 04-16-2024 09:10-0400 Body temperature 97.34 [degF] DR JUDITH HAYNES MD [facility] 04-16-2024 09:05-0400 Respiratory Rate - Anes 18 br/min DR JUDITH HAYNES MD [facility] 04-16-2024 08:55-0400 Respiratory Rate - Anes 21 br/min DR JUDITH HAYNES MD [facility] 04-16-2024 06:03-0400 Body height 177.[address] JUDITH HAYNES MD [facility] 04-16-2024 06:03-0400 Body weight 131.[address] JUDITH HAYNES MD [facility] 03-21-2024 14:27-0400 Body height 177.[address] JUDITH HAYNES MD [facility] 03-21-2024 14:27-0400 Body weight 131.[address] JUDITH HAYNES MD [facility] 03-21-2024 14:27-0400 Body weight 41.69 kg/m2 DR JUDITH HAYNES MD [facility] 03-21-2024 14:27-0400 Diastolic Blood Pressure Non-Invasive 92 mm[Hg] DR JUDITH HAYNES MD [facility] 03-21-2024 14:27-0400 Heart rate 85 /min DR JUDITH HAYNES MD [facility] 03-21-2024 14:27-0400 Respiratory rate 20 /min DR JUDITH HAYNES MD [facility] 03-21-2024 14:27-0400 Systolic Blood Pressure Non-Invasive 151 mm[Hg] DR JUDITH HAYNES MD [facility] Encounters Encounter Date Encounter Type Care Provider Facility Start: 03-24-2025 End: 03-24-2025 ambulatory Roshni Bain Facility:[facility] Start: 03-13-2025 ambulatory MOE CASTORENA Facili ty:[facility] Start: 03-13-2025 End: 03-13-2025 Subsequent hospital visit by physician Moe Castorena MD Work Phone: Ambulatory Surgery Comment on above: Screen for colon can cer [Z12.11] Start: 02-22-2025 End: 02-22-[address] [facility] Start: 02-22-2025 End: 02-22-2025 Subsequent hospital visit by physician Reuben Milian MD Work Phone: [facility] Start: 02-21-2025 End: 02-21-2025 Patient encounter procedure Roshni Bain DINKEY DISPATCHER.POLE SETTER Work Phone: General Surgery Comment on above: Screen for colon can cer (Primary Dx); History of colonic polyps Start: 02-21-2025 End: 02-21-2025 ambulatory Roshni Bain Facility:[facility] Start: 11-14-2024 Encounter for genera l adult medical examination without abnormal findings Ruchi Brewer [facility] Start: 11-11-2024 End: 11-11-[address] Rcuhi Brewer DO Work Phone: [facility] Work Phone: Start: 11-11-2024 End: 11-11-[address] Ruchi Brewer DO -Sleep Lab Work Phone: Start: 11-11-2024 End: 11-11-2024 ambulatory Ruchi Brewer Facility:[facility] Start: 10-23-2024 End: 10-23-[address] Ruchi Brewer DO Work Phone: [facility] Work Phone: Start: 10-23-2024 End: 10-23-[address] [facility] Work Phone: Start: 10-23-2024 End: 10-23-2024 ambulatory Ruchi Brewer Facility:[facility] Start: 09-18-2024 End: 09-18-[address] Ruchi Brewer DO Work Phone: [facility] Work Phone: Start: 09-18-2024 End: 09-18-[address] [facility] Work Phone: Start: 09-18-2024 End: 09-18-2024 ambulatory Ruchi Brewer Facility:[facility] Start: 09-05-2024 End: 09-05-[address] Ruchi Brewer DO Work Phone: [facility] Work Phone: Start: 09-05-2024 End: 09-05-[address] Ruchi Brewer DO -Sleep Lab Work Phone: Start: 09-05-2024 End: 09-05-2024 ambulatory [facility] Facility:[facility] Start: 08-21-2024 End: 08-21-[address] [facility] Start: 08-21-2024 End: 08-21-2024 ambulatory Ruchi [facility] Facility:[facility] Start: 08-20-2024 ambulatory [facility] Facility: [facility] Start: 07-29-2024 Encounter for other preprocedural examination Judith Haynes [facility] Start: 07-09-2024 End: 07-09-2024 ambulatory Harry See Facility:[facility] Start: 07-09-2024 End: 07-09-2024 Non-patient / Non-visit Dr. Harry See MD -[facility] Work Phone: Start: 07-09-2024 End: 07-09-[address] Judith Haynes MD -[facility] Work Phone: Start: 07-09-2024 End: 07-09-2024 ambulatory [facility] Facility:[facility] Start: 05-06-2024 End: 05-06-2024 ambulatory [facility] Facility:[facility] Start: 05-01-2024 End: 05-01-2024 ambulatory [facility] Facility:[facility] Start: 04-16-2024 End: 04-17-[address] JUDITH HAYNES MD Facility:[facility] Start: 04-16-2024 End: 04-17-[address] JUDITH HAYNES MD [facility] Start: 03-21-2024 End: 03-21-[address] JUDITH HAYNES MD Facility:[facility] Start: 03-21-2024 End: 03-21-[address] JUDITH HAYNES MD [facility] Start: 03-21-2024 End: 03-21-[address] JUDITH HAYNES MD [facility] Start: 03-21-2024 End: 03-21-[address] JUDITH HAYNES MD Facility:[facility] Procedure Procedure Detail Performing Clinician Start: 03-13-2025 Colonoscopy flx dx w /collj spec when pfrmd Roshni Bain DINKEY DISPATCHER.POLE SETTER Work Phone: Start: 03-13-2025 Colonoscopy Moe ballesteros MD Work Phone: Start: 08-21-2024 Measurement of renal function Dr. Ruchi Brewer DO Work Phone: Comment on above: GFR Calc Start: 07-09-2024 MRI of lower extremity Dr. Ruchi Brewer DO Work Phone: Start: 04-16-[address] JUDITH HAYNES MD Comment on above: LEFT Start: 01-15-2020 Colonoscopy Roshni Bain DINKEY DISPATCHER.POLE SETTER Work Phone: Arthroscopy of shoulder DR Frida HAYNES MD Comment on above: bilateral Extraction of cataract DR HECTOR LIU Comment on above: bilateral Primary repair of in guinal hernia DR JUDITH HAYNES MD Plan of Treatment Date Care Activity Detail Author Start: 04-29-2030 Urine microalbumin profile DTaP,Tdap,Td Vaccine (3 - Td or Tdap) [facility] Start: 03-13-2030 Screening for malign ant neoplasm of colon [facility] Start: 03-24-2025 End: 03-24-2025 Patient encounter procedure 03/24/2025 9:00 AM EDT Office Visit General Surgery [address] [place] [id number] Roshni Bain APRN.POLE SETTER [address] [place] [id number] 03-13 colonoscopy follow up General Surgery Comment on above: 03-13 colonoscopy fo llow up Start: 03-03-2025 Influenza vaccination Influenza Vacc ine (#1) [facility] Start: 02-27-2025 End: 02-27-2025 Patient encounter procedure 02/27/2025 2:45 PM EDT Appointment Ambulatory Surgery [address] [place], [place] [id number] Moe Castorena MD [address] [place], [place] [address] Screen for colon cancer [Z12.11]; History of colonic polyps [Z86.0100] Ambulatory Surgery Comment on above: Screen for colon can cer [Z12.11]; History of colonic polyps [Z86.0100] Start: 02-22-2025 End: 02-22-2025 EYE RETINAL DETACHMENT REPAIR EYE RETINAL DETACHMENT REPAIR Left retinal detachment 02/22/2025 7:57 AM EDT [facility] Start: 01-14-2025 Screening for malign ant neoplasm of colon [facility] Start: 2023 RSV Vaccine (1 - Ris k 60-74 years 1-dose series) RSV Vaccine (1 - Risk 60-74 years 1-dose series) [facility] Start: 02-08-2023 Prostate specific antigen measurement Prostate Cancer Screening Discussion [facility] Start: 08-14-2016 Diabetes Screening Diabetes Screenin g [facility] Start: 2013 Pneumococcal Vaccine : 50+ (1 of 1 - PCV) Pneumococcal Vaccine: 50+ (1 of 1 - PCV) [facility] Start: 2013 Shingrix Vaccine (1 of 2) Shingrix Vaccine (1 of 2) [facility] Start: 2008 Screening for malign ant neoplasm of colon [facility] Start: 1998 Lipid panel Lipid Screening [facility] Start: 1981 Anxiety Screening Anxiety Screening [facility] Start: 1981 Depression Screening Depression Scre ening [facility] Start: 1981 Hepatitis C screening Hepatitis C Sc reefe [facility] Start: 1981 HIV screening HIV Screening [facility] Oxygen therapy [Mini [facility] Data Set] Initiate Oxygen Therapy Protocol Respiratory Care Routine As Needed until discontinued starting 02/22/2025 [facility] Comment on above: As Needed until disc ontinued starting 02/22/2025 End: 02-21-2026 Screening colonoscopy COLONOSCOPY SCREENING Endoscopy Routine Screen for colon cancer History of colonic polyps 1 Occurrences starting 02/21/2025 until 02/21/2026 [facility] Work Phone: Comment on above: 1 Occurrences starti ng 02/21/2025 until 02/21/2026 Tissue Pathology bio psy report [facility] Work Phone: Comment on above: Release Upon Orderin g for 1 Occurrences starting 03/13/2025, 1 completed Immunizations Immunization Date Immunization Notes Care Provider Fa [facility] 04-29-2020 tetanus toxoid, redu gualberto diphtheria toxoid, and acellular pertussis vaccine, adsorbed DR JUDITH HAYNES MD [facility] 06-02-2004 diphtheria and tetan us toxoids, adsorbed for pediatric use Roshni Bain APRN.CNP Work Phone: [facility] Work Phone: Payers Date Payer Category Payer Self-pay [id number] 2024 Self-pay 2024 Unknown [id number] 2024 Unknown [id number] 2021 [employer] Blue [facility] BLUE CARD PPO OOS Member Subscriber Plan / Payer (Effective 2021-Present) Name: Estrada Mccormack Relation to Subscriber: Self Name: Estrada Mccormack Payer ID: [id number] (NAIC) Type: PPO Address: [place] [id number] 2021 Unknown [id number] 1965 Unknown [id number] 1963 Unknown [id number] 1963 Unknown [id number] .[id number] 1965 Unknown [id number] [id number] .204 Unknown [id number] .462 Unknown [id number] .462 Unknown [id number] .462 Unknown [id number] .462 Unknown [id number] [id number] .462 Unknown [id number] .462 Unknown [id number] .462 Unknown [id number] .462 Unknown [id number] [id number] .462 Unknown [id number] .462 Social History Date Type Detail Facility Start: 03-21-2024 End: 03-13-2025 Tobacco smoking status Ex-smoker (finding) [facility] Start: 1965 Sex Assigned At Male A [facility] Start: 04-29-2020 [facility] Start: 09-18-2024 End: 02-22-2025 Sex Male (finding) [facility] History of tobacco use Current smoker [facility] History of tobacco use Cigarette Smoker C [facility] Start: 08-25-2017 End: 06-07-2020 Cigarettes smoked current (pack per day) - Reported 0.5 [facility] Start: 08-25-2017 End: 03-13-2025 Tobacco use and exposure Smokeless tobacco non-user [facility] Start: 02-05-2020 End: 03-13-2025 Alcoholic beverage intake Current drinker of alcohol (finding) [facility] Start: 02-05-2020 End: 06-07-2020 Tobacco use panel [facility] Start: 06-03-2012 National Score (1-10 0), lower number is lower risk Not on file [facility] Start: 05-02-2013 End: 03-13-2025 Tobacco Comment only smoked couple years in high school [facility] Start: 01-15-2020 Alcohol Comment weekends 12 pack [facility] Start: 1965 Sex assigned at Not on file C [facility] Tobacco smoking stat [facility] Tobacco smoking consumption unknown [facility] Functional Status Date Assessment Result Facility 04-17-2024 Functional Status Independent [facility] 04-17-2024 Functional Status [facility] 04-16-2024 Functional Status [facility] 04-16-2024 Functional Status [facility] 04-16-2024 Functional Status [facility] 04-16-2024 Functional Status [facility] 04-16-2024 Functional Status Single level home [facility] 04-16-2024 Functional Status [facility] 04-16-2024 Functional Status ice on, tension pillow in place [facility] 04-16-2024 Functional Status NPO Status confirmed [facility] 04-16-2024 Functional Status [facility] 03-21-2024 Functional Status Sensory Deficits None [facility] Mental Status Date Assessment Result Facility 04-17-2024 Mental Status Oriented x 4 [facility] 04-16-2024 Mental Status [facility] 04-16-2024 Mental Status [facility] Clinical Notes 04-16-2024 to 03-24-2025 Discharge Instr - Bianka Barakat RN - 03/13/2025 10:16 AM EDTDischarge Instr - Geri - Bianka Slaughter RN - 03/13/2025 10:16 AM EDTPMoe keita MD - 03/13/2025 10:00 AM EDT Note Date & Type Note Facility 03-24-2025 Note HNO ID: [id number] Author: ROSHNI BAIN APRN.POLE SETTER Service: ? Author Type: Nurse Practitioner Type: Progress Notes Filed: 03/24/2025 14:57 Note Text: FOLLOW UP VISIT - ENDOSCOPY Estrada Mccormack 1965 [id number] REFERRING PHYSICIAN: No referring provider defined for this encounter. Estrada Mccormack is a patient I am following for screen for colonoscopy. Dr. Castorena performed lower endoscopy on 03/13/25. The patient was found to have Impression: - One diminutive (1-3 mm) polyp in the ascending colon, removed with a jumbo cold forceps. Resected and retrieved. - Two small (4-6 mm) polyps in the descending colon, removed with a cold snare. Resected and retrieved. - Non-bleeding internal hemorrhoids. - The examination was otherwise normal Pathology demonstrated: FINAL DIAGNOSIS A. Colon, ascending, polyp, biopsy: - Fragments of tubular adenoma. B. Colon, descending, polyps x 2, biopsy: - Tubular adenomas. The patient notes no complaints since the procedure. VITALS: There were no vitals taken for this visit. General: patient is alert, cooperative, pleasant and in no acute distress On examination, the abdomen is benign. Assessment ASSESSMENT/PLAN: 1. Tubular adenoma of colon - ICD9: 211.3, ICD10: D12.6 The operative findings and pathology report were reviewed with the patient, and the patient has had the opportunity to ask questions and have questions answered. If the patient notes any problems or changes in bowel function, the patient should contact me immediately. Otherwise I recommend follow up endoscopy in 5 years. HM updated. Discussed treatment plan and patient voices understanding. Patient's questions answered appropriately. Medications and potential side effects were discussed and patient voices understanding. Return to the office as scheduled or as needed for worsening/no improvement. Roshni Bain APRN.POLE SETTER [facility] 03-13-2025 Note Formatting of this n ote might be different from the original. The patient received a copy of Colonoscopy discharge instructions that contain information for how to contact the physician who performed the procedure and when to seek medical care. [facility] 03-13-2025 Miscellaneous Notes The patient received a copy of Colonoscopy discharge instructions that contain information for how to contact the physician who performed the procedure and when to seek medical care. documented in this encounter [facility] 03-13-2025 History and physical note HISTORY AND PHYSICAL Estrada Mccormack : 1965 REFERRING PHYSICIAN: No referring provider defined for this encounter. CHIEF COMPLAINT: Patient presents with: Consult: Due for colonoscopy. Denies GI issues HPI: Estrada is a 59 year old male referred for endoscopy. Estrada notes due for screening colonoscopy-hx of polyps (2019). Estrada denies abdominal pain. Estrada denies diarrhea. Estrada denies constipation. Estrada denies a change in bowel habits. Estrada denies melena. Estrada denies bright red blood per rectum. Estrada denies hemorrhoids. Estrada denies family history of colon issues. Estrada denies heartburn. Estrada denies dysphagia. Estrada denies a history of ulcers/ peptic ulcer disease. Estrada has undergone prior endoscopy. Last colonoscopy was 01/[address] Leung at [facility]. Sedation: Midazolam 7 mg IV, Fentanyl 50 micrograms IV, Diphenhydramine 50 mg IV Impression: - One 3 to 7 mm polyp in the transverse colon, removed with a cold snare. Resected and retrieved. - One 3 to 7 mm polyp in the descending colon, removed with a cold snare. Resected and retrieved. - Non-bleeding internal hemorrhoids. CONVERTED FINAL DIAGNOSIS 1. Colon, transverse polyp, biopsy (A) - Colonic mucosa with no pathologic diagnostic abnormality; see comment. 2. Colon, left polyp, biopsy (B) - Tubular adenoma. SS/glw 01/17/2020 CONVERTED DIAGNOSIS COMMENT 1. Additional deeper levels were also examined. CURRENT MEDICATIONS Current Outpatient Medications Medication Sig tirzepatide, weight loss (ZEPBOUND) 12.5 mg/0.5 mL pen injector Inject 12.5 mg subcutaneously one time a week. No current facility-administered medications for this visit. ALLERGIES: Patient has no known allergies. PAST MEDICAL HISTORY PAST MEDICAL HISTORY Diagnosis Date NEGATIVE MEDICAL HISTORY Snoring PAST SURGICAL HISTORY PAST SURGICAL HISTORY Procedure Laterality Date CATARACT SURGERY, COMPLEX 2009 bilateral COLONOSCOP W/ OR W/O [facility] SPEC 08/25/2017 Colonoscopy COLONOSCOP W/ OR W/O [facility] SPEC 11/02/2017 Colonoscopy COLONOSCOP W/ OR W/O [facility] SPEC 01/15/2020 Colonoscopy PAST SURGICAL HISTORY OF Left 2018 Rotator cuff surgery REPAIR UMBILICAL BETO,5+Y/O,REDUC 08/20/13 simple SHOULDER ARTHROSCOPY/SURGERY 2008 right, rotator cuff repair FAMILY HISTORY FAMILY HISTORY Problem Relation Age of Onset Diabetes Father Cancer Mother stomach Breast Cancer Mother None Sister [SOCIAL HISTORY] [SOCIAL HISTORY] Social History Tobacco Use Smoking status: Former Current packs/day: 0.50 Average packs/day: 0.5 packs/day for 7.0 years (3.5 ttl pk-yrs) Types: Cigarettes Smokeless tobacco: Never Tobacco comments: only smoked couple years in high school Vaping Use Vaping status: Never Used Substance Use Topics Alcohol use: Yes Comment: weekends 12 pack Drug use: No REVIEW OF SYMPTOMS: REVIEW OF SYSTEMS: General: The patient denies fatigue, + weight loss, denies weight gain, denies feeling hot, and feelings of cold. Eyes: The patient denies glaucoma, + eye injury/surgery, denies glasses or contacts. Ear/Nose/Throat: The patient denies allergies, denies hayfever, denies ear infections, and denies bloody noses. Cardiovascular: The patient denies chest pain, denies heart disease, + high blood pressure, denies high cholesterol, and denies poor circulation. Respiratory: The patient denies tuberculosis, denies pneumonia, denies frequent cough, denies shortness of breath, and denies coughing up blood. Gastrointestinal: The patient denies difficulty swallowing, denies acid reflux, denies ulcers, denies jaundice/hepatitis, denies gallbladder problems, denies vomiting, denies black or tarry stools, denies hemorrhoids, denies bleeding from rectum, denies diverticulitis, denies constipation, denies diarrhea, denies loss of stool control, and denies hernias. Kidney/Bladder: The patient denies kidney stones, denies urine infections, and denies bloody urine. Skin: The patient denies a history of skin cancer, denies bleeding/changing moles, and denies a history of skin rash. Neurologic: The patient denies a history of epilepsy/convulsions, denies headaches, denies head/spinal injuries, and denies stroke/TIA. Psychiatric: The patient denies psychiatric medications, denies depression, and denies voices. Endocrine: The patient denies thyroid disorders, denies diabetes, and denies hormonal problems. Hematologic: The patient denies a history of bruising, denies bleeding, and denies anemia. Infections: The patient denies a history of measles and mumps, denies rheumatic fever, and denies sexually transmitted diseases. Musculoskeletal: The patient denies back pain/injury, + back problems, denies sciatica, denies knee/foot trouble, denies arthritis, or denies gout. PHYSICAL EXAMINATION: General: The patient is 59 year old, male well nourished, well hydrated in no acute distress. The patient is oriented to time, place, and person. VITALS: Blood pressure 147/92, pulse 88, resp. rate 14, weight 119.4 kg (263 lb 3.2 oz), SpO2 97%. Body mass index is 37.77 kg/m . HEENT: Normal cephalic, ataumatic, pupils are equally round, sclera are anicteric, mucous membranes are moist, oropharynx is clear. Neck has no masses or asymmetry . Respiratory: Clear to auscultation. Cardiac: Regular rate and rhythm. Abdominal exam: Soft, nontender, with no palpable masses. No hepatosplenomegaly. No palpable hernias. Extremities: no clubbing or cyanosis LABORATORY VALUES: As Noted RADIOLOGIC STUDIES: As Noted Assessment IMPRESSION: screen for colon cancer, history of colon polyps PLAN: I have reviewed my findings with the surgeon. Will plan for lower endoscopy. We discussed the risks and benefits of the planned endoscopy in terms understandable to the patient. I have informed the patient that complications can occur including failure to complete the endoscopy and perforation. Estrada had the opportunity to ask questions concerning the planned endoscopy. Estrada freely consents to surgery. I plan to use miraLAX bowel preparation Instructed to hold mounjaro for 7 days prior to endoscopy. I have explained to the patient the difference between IV conscious sedation and MAC anesthesia - and I have offered either, according to the patient's wishes. I have explained that with IV conscious sedation there is no anesthesia provider available and therefore there is a limitation of the amount of IV medications that can be given and that the patient may wake up in the middle of the procedure and/or experience pain/discomfort during the procedure. Further discussion was done and the patient was given the opportunity to ask questions and all questions were answered. Estrada chooses IV conscious sedation. Estrada was counseled that if there are changes in his/her medical condition, to let the office know if surgery should proceed. If there are changes in patient's medical condition from time of this encounter to the day of the procedure that preclude anesthesia, patient may have procedure cancelled for patient's safety. Diagnoses: (Z12.11) Screen for colon cancer (primary encounter diagnosis) (Z86.0100) History of colonic polyps Portions of this documentation were copied and pasted from previous office visit notes in order to provide a cohesive continuity of the history. The note has been reviewed and edited and updated as necessary. Roshni Bain APRN.CNP UPDATED HISTORY AND PHYSICAL EXAMINATION SERVICE DATE: 03/13/2025 SERVICE TIME: 9:26 AM PHYSICAL EXAM MUST BE COMPLETED ON ADMISSION The History and Physical (completed in the past 30 days) has been reviewed and the patient has been examined. The contents accurately reflect the patient's condition with the following additions or revisions since the H&P was completed. Examination indicates no changes. This H&P can be found in the attached. SIGNATURE: Moe Castorena III, MD PATIENT NAME: Estrada Mccormack DATE: March 13, 2025 TIME: 9:26 AM [facility] Work Phone: 03-13-2025 History and physical note HISTORY AND PHYSICAL Estrada Mccormack : 1965 REFERRING PHYSICIAN: No referring provider defined for this encounter. CHIEF COMPLAINT: Patient presents with: Consult: Due for colonoscopy. Denies GI issues HPI: Estrada is a 59 year old male referred for endoscopy. Estrada notes due for screening colonoscopy-hx of polyps (2019). Estrada denies abdominal pain. Estrada denies diarrhea. Estrada denies constipation. Estrada denies a change in bowel habits. Estrada denies melena. Estrada denies bright red blood per rectum. Estrada denies hemorrhoids. Estrada denies family history of colon issues. Estrada denies heartburn. Estrada denies dysphagia. Estrada denies a history of ulcers/ peptic ulcer disease. Estrada has undergone prior endoscopy. Last colonoscopy was 01/[address] Leung at [facility]. Sedation: Midazolam 7 mg IV, Fentanyl 50 micrograms IV, Diphenhydramine 50 mg IV Impression: - One 3 to 7 mm polyp in the transverse colon, removed with a cold snare. Resected and retrieved. - One 3 to 7 mm polyp in the descending colon, removed with a cold snare. Resected and retrieved. - Non-bleeding internal hemorrhoids. CONVERTED FINAL DIAGNOSIS 1. Colon, transverse polyp, biopsy (A) - Colonic mucosa with no pathologic diagnostic abnormality; see comment. 2. Colon, left polyp, biopsy (B) - Tubular adenoma. SS/glw 01/17/2020 CONVERTED DIAGNOSIS COMMENT 1. Additional deeper levels were also examined. CURRENT MEDICATIONS Current Outpatient Medications Medication Sig tirzepatide, weight loss (ZEPBOUND) 12.5 mg/0.5 mL pen injector Inject 12.5 mg subcutaneously one time a week. No current facility-administered medications for this visit. ALLERGIES: Patient has no known allergies. PAST MEDICAL HISTORY PAST MEDICAL HISTORY Diagnosis Date NEGATIVE MEDICAL HISTORY Snoring PAST SURGICAL HISTORY PAST SURGICAL HISTORY Procedure Laterality Date CATARACT SURGERY, COMPLEX 2009 bilateral COLONOSCOP W/ OR W/O [facility] SPEC 08/25/2017 Colonoscopy COLONOSCOP W/ OR W/O [facility] SPEC 11/02/2017 Colonoscopy COLONOSCOP W/ OR W/O [facility] SPEC 01/15/2020 Colonoscopy PAST SURGICAL HISTORY OF Left 2018 Rotator cuff surgery REPAIR UMBILICAL BETO,5+Y/O,REDUC 08/20/13 simple SHOULDER ARTHROSCOPY/SURGERY 2008 right, rotator cuff repair FAMILY HISTORY FAMILY HISTORY Problem Relation Age of Onset Diabetes Father Cancer Mother stomach Breast Cancer Mother None Sister [SOCIAL HISTORY] [SOCIAL HISTORY] Social History Tobacco Use Smoking status: Former Current packs/day: 0.50 Average packs/day: 0.5 packs/day for 7.0 years (3.5 ttl pk-yrs) Types: Cigarettes Smokeless tobacco: Never Tobacco comments: only smoked couple years in high school Vaping Use Vaping status: Never Used Substance Use Topics Alcohol use: Yes Comment: weekends 12 pack Drug use: No REVIEW OF SYMPTOMS: REVIEW OF SYSTEMS: General: The patient denies fatigue, + weight loss, denies weight gain, denies feeling hot, and feelings of cold. Eyes: The patient denies glaucoma, + eye injury/surgery, denies glasses or contacts. Ear/Nose/Throat: The patient denies allergies, denies hayfever, denies ear infections, and denies bloody noses. Cardiovascular: The patient denies chest pain, denies heart disease, + high blood pressure, denies high cholesterol, and denies poor circulation. Respiratory: The patient denies tuberculosis, denies pneumonia, denies frequent cough, denies shortness of breath, and denies coughing up blood. Gastrointestinal: The patient denies difficulty swallowing, denies acid reflux, denies ulcers, denies jaundice/hepatitis, denies gallbladder problems, denies vomiting, denies black or tarry stools, denies hemorrhoids, denies bleeding from rectum, denies diverticulitis, denies constipation, denies diarrhea, denies loss of stool control, and denies hernias. Kidney/Bladder: The patient denies kidney stones, denies urine infections, and denies bloody urine. Skin: The patient denies a history of skin cancer, denies bleeding/changing moles, and denies a history of skin rash. Neurologic: The patient denies a history of epilepsy/convulsions, denies headaches, denies head/spinal injuries, and denies stroke/TIA. Psychiatric: The patient denies psychiatric medications, denies depression, and denies voices. Endocrine: The patient denies thyroid disorders, denies diabetes, and denies hormonal problems. Hematologic: The patient denies a history of bruising, denies bleeding, and denies anemia. Infections: The patient denies a history of measles and mumps, denies rheumatic fever, and denies sexually transmitted diseases. Musculoskeletal: The patient denies back pain/injury, + back problems, denies sciatica, denies knee/foot trouble, denies arthritis, or denies gout. PHYSICAL EXAMINATION: General: The patient is 59 year old, male well nourished, well hydrated in no acute distress. The patient is oriented to time, place, and person. VITALS: Blood pressure 147/92, pulse 88, resp. rate 14, weight 119.4 kg (263 lb 3.2 oz), SpO2 97%. Body mass index is 37.77 kg/m . HEENT: Normal cephalic, ataumatic, pupils are equally round, sclera are anicteric, mucous membranes are moist, oropharynx is clear. Neck has no masses or asymmetry . Respiratory: Clear to auscultation. Cardiac: Regular rate and rhythm. Abdominal exam: Soft, nontender, with no palpable masses. No hepatosplenomegaly. No palpable hernias. Extremities: no clubbing or cyanosis LABORATORY VALUES: As Noted RADIOLOGIC STUDIES: As Noted Assessment IMPRESSION: screen for colon cancer, history of colon polyps PLAN: I have reviewed my findings with the surgeon. Will plan for lower endoscopy. We discussed the risks and benefits of the planned endoscopy in terms understandable to the patient. I have informed the patient that complications can occur including failure to complete the endoscopy and perforation. Estrada had the opportunity to ask questions concerning the planned endoscopy. Estrada freely consents to surgery. I plan to use miraLAX bowel preparation Instructed to hold mounjaro for 7 days prior to endoscopy. I have explained to the patient the difference between IV conscious sedation and MAC anesthesia - and I have offered either, according to the patient's wishes. I have explained that with IV conscious sedation there is no anesthesia provider available and therefore there is a limitation of the amount of IV medications that can be given and that the patient may wake up in the middle of the procedure and/or experience pain/discomfort during the procedure. Further discussion was done and the patient was given the opportunity to ask questions and all questions were answered. Estrada chooses IV conscious sedation. Estrada was counseled that if there are changes in his/her medical condition, to let the office know if surgery should proceed. If there are changes in patient's medical condition from time of this encounter to the day of the procedure that preclude anesthesia, patient may have procedure cancelled for patient's safety. Diagnoses: (Z12.11) Screen for colon cancer (primary encounter diagnosis) (Z86.0100) History of colonic polyps Portions of this documentation were copied and pasted from previous office visit notes in order to provide a cohesive continuity of the history. The note has been reviewed and edited and updated as necessary. Roshni Bain APRN.POLE SETTER UPDATED HISTORY AND PHYSICAL EXAMINATION SERVICE DATE: 03/13/2025 SERVICE TIME: 9:26 AM PHYSICAL EXAM MUST BE COMPLETED ON ADMISSION The History and Physical (completed in the past 30 days) has been reviewed and the patient has been examined. The contents accurately reflect the patient's condition with the following additions or revisions since the H&P was completed. Examination indicates no changes. This H&P can be found in the attached. SIGNATURE: Moe Castorena III, MD PATIENT NAME: Estrada Mccormack DATE: March 13, 2025 TIME: 9:26 AM documented in this encounter [facility] 02-21-2025 History of Present illness Narrative HISTORY AND PHYSICAL Estrada Mccormack : 1965 REFERRING PHYSICIAN: No referring provider defined for this encounter. CHIEF COMPLAINT: Patient presents with: Consult: Due for colonoscopy. Denies GI issues HPI: Estrada is a 59 year old male referred for endoscopy. Estrada notes due for screening colonoscopy-hx of polyps (2019). Estrada denies abdominal pain. Estrada denies diarrhea. Estrada denies constipation. Estrada denies a change in bowel habits. Estrada denies melena. Estrada denies bright red blood per rectum. Estrada denies hemorrhoids. Estrada denies family history of colon issues. Estrada denies heartburn. Estrada denies dysphagia. Estrada denies a history of ulcers/ peptic ulcer disease. Estrada has undergone prior endoscopy. Last colonoscopy was 01/[address] Leung at [facility]. Sedation: Midazolam 7 mg IV, Fentanyl 50 micrograms IV, Diphenhydramine 50 mg IV Impression: - One 3 to 7 mm polyp in the transverse colon, removed with a cold snare. Resected and retrieved. - One 3 to 7 mm polyp in the descending colon, removed with a cold snare. Resected and retrieved. - Non-bleeding internal hemorrhoids. CONVERTED FINAL DIAGNOSIS 1. Colon, transverse polyp, biopsy (A) - Colonic mucosa with no pathologic diagnostic abnormality; see comment. 2. Colon, left polyp, biopsy (B) - Tubular adenoma. SS/glw 01/17/2020 CONVERTED DIAGNOSIS COMMENT 1. Additional deeper levels were also examined. Current Outpatient Medications Medication Sig tirzepatide, weight loss (ZEPBOUND) 12.5 mg/0.5 mL pen injector Inject 12.5 mg subcutaneously one time a week. No current facility-administered medications for this visit. ALLERGIES: Patient has no known allergies. PAST MEDICAL HISTORY Diagnosis Date NEGATIVE MEDICAL HISTORY Snoring PAST SURGICAL HISTORY Procedure Laterality Date CATARACT SURGERY, COMPLEX 2009 bilateral COLONOSCOP W/ OR W/O [facility] SPEC 08/25/2017 Colonoscopy COLONOSCOP W/ OR W/O [facility] SPEC 11/02/2017 Colonoscopy COLONOSCOP W/ OR W/O [facility] SPEC 01/15/2020 Colonoscopy PAST SURGICAL HISTORY OF Left 2018 Rotator cuff surgery REPAIR UMBILICAL BETO,5+Y/O,REDUC 08/20/13 simple SHOULDER ARTHROSCOPY/SURGERY 2008 right, rotator cuff repair FAMILY HISTORY Problem Relation Age of Onset Diabetes Father Cancer Mother stomach Breast Cancer Mother None Sister SOCIAL HISTORY[1] REVIEW OF SYMPTOMS: REVIEW OF SYSTEMS: General: The patient denies fatigue, + weight loss, denies weight gain, denies feeling hot, and feelings of cold. Eyes: The patient denies glaucoma, + eye injury/surgery, denies glasses or contacts. Ear/Nose/Throat: The patient denies allergies, denies hayfever, denies ear infections, and denies bloody noses. Cardiovascular: The patient denies chest pain, denies heart disease, + high blood pressure, denies high cholesterol, and denies poor circulation. Respiratory: The patient denies tuberculosis, denies pneumonia, denies frequent cough, denies shortness of breath, and denies coughing up blood. Gastrointestinal: The patient denies difficulty swallowing, denies acid reflux, denies ulcers, denies jaundice/hepatitis, denies gallbladder problems, denies vomiting, denies black or tarry stools, denies hemorrhoids, denies bleeding from rectum, denies diverticulitis, denies constipation, denies diarrhea, denies loss of stool control, and denies hernias. Kidney/Bladder: The patient denies kidney stones, denies urine infections, and denies bloody urine. Skin: The patient denies a history of skin cancer, denies bleeding/changing moles, and denies a history of skin rash. Neurologic: The patient denies a history of epilepsy/convulsions, denies headaches, denies head/spinal injuries, and denies stroke/TIA. Psychiatric: The patient denies psychiatric medications, denies depression, and denies voices. Endocrine: The patient denies thyroid disorders, denies diabetes, and denies hormonal problems. Hematologic: The patient denies a history of bruising, denies bleeding, and denies anemia. Infections: The patient denies a history of measles and mumps, denies rheumatic fever, and denies sexually transmitted diseases. Musculoskeletal: The patient denies back pain/injury, + back problems, denies sciatica, denies knee/foot trouble, denies arthritis, or denies gout. PHYSICAL EXAMINATION: General: The patient is 59 year old, male well nourished, well hydrated in no acute distress. The patient is oriented to time, place, and person. VITALS: Blood pressure 147/92, pulse 88, resp. rate 14, weight 119.4 kg (263 lb 3.2 oz), SpO2 97%. Body mass index is 37.77 kg/m . HEENT: Normal cephalic, ataumatic, pupils are equally round, sclera are anicteric, mucous membranes are moist, oropharynx is clear. Neck has no masses or asymmetry . Respiratory: Clear to auscultation. Cardiac: Regular rate and rhythm. Abdominal exam: Soft, nontender, with no palpable masses. No hepatosplenomegaly. No palpable hernias. Extremities: no clubbing or cyanosis LABORATORY VALUES: As Noted RADIOLOGIC STUDIES: As Noted Assessment IMPRESSION: screen for colon cancer, history of colon polyps PLAN: I have reviewed my findings with the surgeon. Will plan for lower endoscopy. We discussed the risks and benefits of the planned endoscopy in terms understandable to the patient. I have informed the patient that complications can occur including failure to complete the endoscopy and perforation. Estrada had the opportunity to ask questions concerning the planned endoscopy. Estrada freely consents to surgery. I plan to use miraLAX bowel preparation Instructed to hold mounjaro for 7 days prior to endoscopy. I have explained to the patient the difference between IV conscious sedation and MAC anesthesia - and I have offered either, according to the patient's wishes. I have explained that with IV conscious sedation there is no anesthesia provider available and therefore there is a limitation of the amount of IV medications that can be given and that the patient may wake up in the middle of the procedure and/or experience pain/discomfort during the procedure. Further discussion was done and the patient was given the opportunity to ask questions and all questions were answered. Estrada chooses IV conscious sedation. Estrada was counseled that if there are changes in his/her medical condition, to let the office know if surgery should proceed. If there are changes in patient's medical condition from time of this encounter to the day of the procedure that preclude anesthesia, patient may have procedure cancelled for patient's safety. Diagnoses: (Z12.11) Screen for colon cancer (primary encounter diagnosis) (Z86.0100) History of colonic polyps Portions of this documentation were copied and pasted from previous office visit notes in order to provide a cohesive continuity of the history. The note has been reviewed and edited and updated as necessary. Roshni Bain APRN.CNP [1] Social History Tobacco Use Smoking status: Former Current packs/day: 0.50 Average packs/day: 0.5 packs/day for 7.0 years (3.5 ttl pk-yrs) Types: Cigarettes Smokeless tobacco: Never Tobacco comments: only smoked couple years in high school Vaping Use Vaping status: Never Used Substance Use Topics Alcohol use: Yes Comment: weekends 12 pack Drug use: No documented in this encounter [facility] 02-21-2025 Note HNO ID: [id number] Author: ROSHNI BAIN APRN.CNP Service: ? Author Type: Nurse Practitioner Type: Progress Notes Filed: 02/21/2025 08:15 Note Text: HISTORY AND PHYSICAL Estrada Mccormack : 1965 REFERRING PHYSICIAN: No referring provider defined for this encounter. CHIEF COMPLAINT: Patient presents with: Consult: Due for colonoscopy. Denies GI issues HPI: Estrada is a 59 year old male referred for endoscopy. Estrada notes due for screening colonoscopy-hx of polyps (2019). Estrada denies abdominal pain. Estrada denies diarrhea. Estrada denies constipation. Estrada denies a change in bowel habits. Estrada denies melena. Estrada denies bright red blood per rectum. Estrada denies hemorrhoids. Estrada denies family history of colon issues. Estrada denies heartburn. Estrada denies dysphagia. Estrada denies a history of ulcers/ peptic ulcer disease. Estrada has undergone prior endoscopy. Last colonoscopy was 01/[address] Leung at [facility]. Sedation: Midazolam 7 mg IV, Fentanyl 50 micrograms IV, Diphenhydramine 50 mg IV Impression: - One 3 to 7 mm polyp in the transverse colon, removed with a cold snare. Resected and retrieved. - One 3 to 7 mm polyp in the descending colon, removed with a cold snare. Resected and retrieved. - Non-bleeding internal hemorrhoids. CONVERTED FINAL DIAGNOSIS 1. Colon, transverse polyp, biopsy (A) - Colonic mucosa with no pathologic diagnostic abnormality; see comment. 2. Colon, left polyp, biopsy (B) - Tubular adenoma. SS/glw 01/17/2020 CONVERTED DIAGNOSIS COMMENT 1. Additional deeper levels were also examined. Current Outpatient Medications Medication Sig tirzepatide, weight loss (ZEPBOUND) 12.5 mg/0.5 mL pen injector Inject 12.5 mg subcutaneously one time a week. No current facility-administered medications for this visit. ALLERGIES: Patient has no known allergies. PAST MEDICAL HISTORY Diagnosis Date NEGATIVE MEDICAL HISTORY Snoring PAST SURGICAL HISTORY Procedure Laterality Date CATARACT SURGERY, COMPLEX 2009 bilateral COLONOSCOP W/ OR W/O [facility] SPEC 08/25/2017 Colonoscopy COLONOSCOP W/ OR W/O [facility] SPEC 11/02/2017 Colonoscopy COLONOSCOP W/ OR W/O [facility] SPEC 01/15/2020 Colonoscopy PAST SURGICAL HISTORY OF Left 2017 Rotator cuff surgery REPAIR UMBILICAL BETO,5+Y/O,REDUC 08/20/13 simple SHOULDER ARTHROSCOPY/SURGERY 2008 right, rotator cuff repair FAMILY HISTORY Problem Relation Age of Onset Diabetes Father Cancer Mother stomach Breast Cancer Mother None Sister SOCIAL HISTORY[1] REVIEW OF SYMPTOMS: REVIEW OF SYSTEMS: General: The patient denies fatigue, + weight loss, denies weight gain, denies feeling hot, and feelings of cold. Eyes: The patient denies glaucoma, + eye injury/surgery, denies glasses or contacts. Ear/Nose/Throat: The patient denies allergies, denies hayfever, denies ear infections, and denies bloody noses. Cardiovascular: The patient denies chest pain, denies heart disease, + high blood pressure, denies high cholesterol, and denies poor circulation. Respiratory: The patient denies tuberculosis, denies pneumonia, denies frequent cough, denies shortness of breath, and denies coughing up blood. Gastrointestinal: The patient denies difficulty swallowing, denies acid reflux, denies ulcers, denies jaundice/hepatitis, denies gallbladder problems, denies vomiting, denies black or tarry stools, denies hemorrhoids, denies bleeding from rectum, denies diverticulitis, denies constipation, denies diarrhea, denies loss of stool control, and denies hernias. Kidney/Bladder: The patient denies kidney stones, denies urine infections, and denies bloody urine. Skin: The patient denies a history of skin cancer, denies bleeding/changing moles, and denies a history of skin rash. Neurologic: The patient denies a history of epilepsy/convulsions, denies headaches, denies head/spinal injuries, and denies stroke/TIA. Psychiatric: The patient denies psychiatric medications, denies depression, and denies voices. Endocrine: The patient denies thyroid disorders, denies diabetes, and denies hormonal problems. Hematologic: The patient denies a history of bruising, denies bleeding, and denies anemia. Infections: The patient denies a history of measles and mumps, denies rheumatic fever, and denies sexually transmitted diseases. Musculoskeletal: The patient denies back pain/injury, + back problems, denies sciatica, denies knee/foot trouble, denies arthritis, or denies gout. PHYSICAL EXAMINATION: General: The patient is 59 year old, male well nourished, well hydrated in no acute distress. The patient is oriented to time, place, and person. VITALS: Blood pressure 147/92, pulse 88, resp. rate 14, weight 119.4 kg (263 lb 3.2 oz), SpO2 97%. Body mass index is 37.77 kg/m?. HEENT: Normal cephalic, ataumatic, pupils are equally round, sclera are anicteric, mucous memb (more content not included)... [facility] 04-17-2024 Hospital Discharge instructions Patient Education 04/17/2024 10:19:29 Total Knee Replacement, Care After, Tekt-nq-Bxju Total Knee Replacement, Care After This sheet [...] Follow these instructions at home: Medicines Take rhjs-nnw-jngjzlq and prescription medicines only as told by [...] keep your pee (urine) pale yellow. ?Take sbbf-mbe-rcbtdxt or prescription medicines. ?Eat foods that are [...] cannot use soap and water, use hand veteran appeals reviewer. ?Change your bandage as told by your [...] 09/10/2012 Document Revised: 10/28/2019 Document Reviewed: 01/31/2019 ralali Patient Education 2020 [employer]. 04/17/2024 08:48:03 5 - [facility] Post-op Instruction 01/2017 (38245) [facility] Post-operative Instructions PLEASE FOLLOW [facility] POST-OP INSTRUCTIONS GIVEN WATCH FOR SIGNS OF INFECTION: call the office ([phone]) if experencing any of the following: (Usually [...] on your follow up instructions. Form: 338A (89492) R: 11/06 Follow Up Care 03/18/2024 07:48:00 With:[facility] Address: [address] [place] [phone] When:04/19/2024 14:30:00 Comments:This is your first physical therapy appointment. Follow-up as scheduled. With:IRASEMA TIMMONS PA-C, Orthopedic Address: [address] [place] [address] [address] [facility], [place] [address] [phone] When:04/29/2024 13:15:00 Comments:This is your post-op appointment. Follow-up as scheduled. With:RUCHI BREWER DO Address: [address] [place] [address]- When:05/01/2024 09:40:00 Comments:This is your post-hospital follow-up appointment with PCP to monitor your blood pressure. [facility] 04-17-2024 Note Discharge Instructions Thank you for allowing [facility] to assist you with your healthcare needs. The following is important discharge information regarding your hospital visit. Your Care Team Judith Haynes MD Your Diagnosis High blood pressure [...] apnea. Follow Up Appointments Follow Up with [facility] When:04/19/2024 02:30 PM EDT Where:[address] [place] [address] [phone] Additional Information: This is your first physical therapy appointment. Follow-up as scheduled. Follow Up with IRASEMA TIMMONS PA-C, Orthopedic When:04/29/2024 01:15 PM EDT Where:[address] [facility] [address] [facility], [place] [address]- [phone] Additional Information: This is your post-op appointment. Follow-up as scheduled. Follow Up with RUCHI BREWER DO When:05/01/2024 09:40 AM EDT Where:[address] [place] [address]- Additional Information: This is your post-hospital follow-up [...] bowel movement, then as needed Pickup at [facility]/pharmacy #3321 New doxycycline (doxycycline hyclate 100 mg oral capsule) 1 cap by mouth Every 12 hours Duration: 14 Days Pickup at [facility]/pharmacy #3321 New famotidine (Pepcid 20 mg oral tablet) 1 tab(s) by mouth Once a day Pickup at [facility]/pharmacy #3321 New meloxicam (Mobic 7.5 mg oral tablet) 1 tab(s) by mouth Twice daily with meals Do not take any other nonsteroidal anti-inflammatories while on meloxicam/ Mobic. Pickup at [facility]/pharmacy #3321 New oxyCODONE (oxyCODONE 5 mg oral tablet ( IMMEDIATE release )) See instructions Status post total left knee replacement 1-2 tab(s) Oral q4h, As needed for as needed for pain Pickup at [facility]/pharmacy #3321 Pharmacy Information [facility]/pharmacy #3321: [address] [place] [phone] Please take this list to your next [...] may report side effects to FDA at 9-836-SYY-2091. What other drugs will affect famotidine? Famotidine oral can make it harder for your body to absorb other medicines you take by mouth. Tell your doctor if you are taking: cefditoren; dasatinib; delavirdine; fosamprenavir; or tizanidine (if you are taking famotidine liquid). This list is not complete. Other drugs may affect famotidine, including prescription and fghl-qdq-rtpcaac medicines, vitamins, and herbal products. Not all [...] to ensure that the information provided by [employer]. ('[employer]') is accurate, up-to-date, and complete, but no guarantee is made to that effect. Drug information contained herein may be time sensitive. [employer] information has been compiled for use by healthcare practitioners and consumers in the [place] and therefore [employer] does not warrant that uses outside of the [place] are appropriate, unless specifically indicated otherwise. [employer] drug information does not endorse drugs, diagnose patients or recommend therapy. [employer] drug information is an informational resource designed [...] effective or appropriate for any given patient. [employer] does not assume any responsibility for any aspect of healthcare administered with the aid of information [employer] provides. The information contained herein is not intended to cover all possible uses, directions, precautions, warnings, drug interactions, allergic reactions, or adverse effects. If you have questions about the drugs you are taking, check with your doctor, nurse or pharmacist. Copyright 8351-5652 [employer]. Version: . Revision Date: 01/23/2023. meloxicam (oral/injection) (nathalia OKS [...] may report side effects to FDA at 8-124-JNU-5195. What other drugs will affect meloxicam? Ask [...] drugs may affect meloxicam, including prescription and csao-eqm-iujjnve medicines, vitamins, and herbal products. Not all [...] to ensure that the information provided by [employer]. ('[employer]') is accurate, up-to-date, and complete, but no guarantee is made to that effect. Drug information contained herein may be time sensitive. [employer] information has been compiled for use by healthcare practitioners and consumers in the [place] and therefore [employer] does not warrant that uses outside of the [place] are appropriate, unless specifically indicated otherwise. [employer] drug information does not endorse drugs, diagnose patients or recommend therapy. [employer] drug information is an informational resource designed [...] effective or appropriate for any given patient. [employer] does not assume any responsibility for any aspect of healthcare administered with the aid of information [facility] provides. The information contained herein is not intended to cover all possible uses, directions, precautions, warnings, drug interactions, allergic reactions, or adverse effects. If you have questions about the drugs you are taking, check with your doctor, nurse or pharmacist. Copyright 0266-4551 [facility] USDS. Version: 16.01. Revision Date: 09/07/2022. oxycodone (ox [...] were not tolerated. Extended-release oxycodone is for ypubru-uoq-clelk treatment of severe and chronic pain that [...] by your doctor. Stop taking all other mwbnmu-mzy-lqpjp opioid pain medicines when you start taking [...] may report side effects to FDA at 9-295-MAM-4047. What other drugs will affect oxycodone? You [...] may affect oxycodone. This includes prescription and cnrx-abn-lcdazfw medicines, vitamins, and herbal products. Not all [...] to ensure that the information provided by [employer]. ('[employer]') is accurate, up-to-date, and complete, but no guarantee is made to that effect. Drug information contained herein may be time sensitive. [employer] information has been compiled for use by healthcare practitioners and consumers in the [place] and therefore [employer] does not warrant that uses outside of the [place] are appropriate, unless specifically indicated otherwise. [employer] drug information does not endorse drugs, diagnose patients or recommend therapy. light drug information is an informational resource designed [...] effective or appropriate for any given patient. [facility] does not assume any responsibility for any aspect of healthcare administered with the aid of information [employer] provides. The information contained herein is not intended to cover all possible uses, directions, precautions, warnings, drug interactions, allergic reactions, or adverse effects. If you have questions about the drugs you are taking, check with your doctor, nurse or pharmacist. Copyright 5333-4966 [employer]. Version: 17.. Revision Date: 07/25/2023. docusate and [...] may report side effects to FDA at 0-133-JRT-0451. What other drugs will affect docusate and senna? Other drugs may affect docusate and senna, including prescription and yykf-ihq-wamyovk medicines, vitamins, and herbal products. Tell your [...] to ensure that the information provided by [employer]. ('[employer]') is accurate, up-to-date, and complete, but no guarantee is made to that effect. Drug information contained herein may be time sensitive. [employer] information has been compiled for use by healthcare practitioners and consumers in the [place] and therefore [employer] does not warrant that uses outside of the [place] are appropriate, unless specifically indicated otherwise. [employer] drug information does not endorse drugs, diagnose patients or recommend therapy. [employer] drug information is an informational resource designed [...] effective or appropriate for any given patient. [employer] does not assume any responsibility for any aspect of healthcare administered with the aid of information [employer] provides. The information contained herein is not intended to cover all possible uses, directions, precautions, warnings, drug interactions, allergic reactions, or adverse effects. If you have questions about the drugs you are taking, check with your doctor, nurse or pharmacist. Copyright 4634-1714 [employer]. Version: 5.. Revision Date: 02/06/2023. doxycycline (oral/injection) (DOX radha montes) Acticlate, Adoxa, Alodox, Avidoxy, Doryx, Doryx MPC, Lymepak, Mondoxyne NL, Monodox, Morgidox, Morgidox 0s977qp, Morgidox 6v414ze, Okebo, Oracea, Targadox, Vibramycin, Vibramycin Monohydrate What [...] or life-threatening conditions such as anthrax or [place] spotted fever. The benefit of treating a [...] effects of doxycycline? (more content not included)... [facility] 04-17-2024 Pastoral care Progress note Pastoral Care Note Entered On: 04/17/2024 9:21 EDT Performed On: 04/17/2024 9:18 EDT by Og Daily Pastoral Care Type of Pastoral Visit : Initial visit Spiritual Care Visit Initiated by : Hospital Education Coordinator Spiritual Care Reason for Visit : General [...] 04/17/2024 9:18 EDT Digitally Signed by Og aDily on 04/17/2024 09:18 AM [facility] 04-17-2024 Note Date of Service April 17, [...] would like his medications E scribed to [facility] in [facility]. Upon discharge he will contact our office with any concerns or questions. I have reviewed the [place] Automated Rx Reporting System (OARRS) report for [...] OG GREGORIO PA-C on 04/17/2024 08:47 AM [facility] 04-16-2024 Note ORIGINAL EXAMINATION: TWO XRAY [...] Sign Date: 04/16/2024 10:12:44 AM Ordering Provider: JUDITH IVY [facility] 04-16-2024 Anesthesiology Consult note Patient: ESTRADA MCCORMACK Jr Age: 58 years Sex: Male : 1965 Associated Diagnoses: None Author: LYUBOV RUST Preoperative Information Anesthesia history Patient's history: negative. [...] Stroke Mother Procedure history: Arthroscopy of shoulder ([id number]). Comments: 03/21/2024 15:01 Irena Staples RN bilateral Primary repair of inguinal hernia ([id number]). CE - Cataract extraction ([id number]). 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 Lives In Single level home Current [...] Height 177.8 cm Admission Weight 131.8 kg [place] Body Weight 73.00 kg Pain assessment: Pain [...] Height 177.8 cm Admission Weight 131.8 kg [place] Body Weight 73.00 kg Peripheral Pulse Rate [...] no difficulties Skin Temperature Warm Skin Description [place], Normal for ethnicity, Dry Skin Integrity Intact Mucous Membrane Color [place] IV Present Present Neurological Symptoms Patient denies [...] Person #1 We May Share ISAURO Mccormack [phone] Designated Person #1 Relationship Spouse Privacy Restrictions [...] Education NPO after midnight, No jewelry, Responsible Republican, Aware of surgery location, Pre-op education done, 2 bottles CHG wash with instructions given, No ordered medications, Total Joint Replacement/Colorectal Book Given SN - Preprocedure Comments Spoke with patient, Verbalizes/Nonverbally indicates understanding Barriers to Learning None evident Teaching Method Explanation, Printed materials Preferred Spoken Language Syriac Preferred Written Language Syriac Teaching Evaluation No further teaching needed Safety Brochure Information Reviewed Yes [facility] Video Viewed No Patient's Current Physicians [...] Day Patient History . Assessment and Plan [place] [employer] Anesthesiologists (ASA) physical status classification: Class III. Anesthetic Preoperative Plan Anesthetic technique: Spinal. Regional: Spinal. Postoperative pain management: adductor canal block. Risks discussed: nausea, vomiting, headache, hypotension, allergic reaction, serious complications. Informed consent: signed by patient. Digitally Signed by LYUBOV RUST on 04/16/2024 06:53 AM [facility] Evaluation + Plan note Future Appointments [facility] Evaluation note No assessment information availa [facility] Work Phone: Evaluation note Diagnosis Screen for colon cancer- Primary Special screening for malignant neoplasms, colon History of colonic polyps Personal history of colonic polyps [facility] Encounter for screening colonoscopy- Primary Special screening for malignant neoplasms, colon Screen for colon cancer Special screening for malignant neoplasms, colon History of colonic polyps Personal history of colonic polyps documented in this encounter [facility] course Narrative No data available for this section [facility] Hospital Discharge instructions No data available for this section [facility] Progress note No data available for this section [facility] Reason for referral (narrative)No reason for referral information [facility] Work Phone: Reason for visit Narrative* Auth/Cert Specialty Diagnoses / Procedures Referred By Lottie hernandez Referred To Contact Diagnoses Reuben Vegas MD [address] [place] [address] Phone: tel: fax: [facility] [employer] [facility] [address] [place] [address] Referral ID Status Reason Start Date Expiration Date Visits Re quested Visits Authorized [id number] [facility] [employer] N[facility] Outpatient Procedure (Routine) - Closed Specialty Diagnoses / Procedures Referred By Lottie hernandez Referred To Contact [facility] Diagnoses Screen for colon cancer History of colonic polyps Procedures COLONOSCOPY SCREENING COLONOSCOPY FLX DX W/COLLJ SPEC WHEN PFRMD Roshni Bain APRN.POLE SETTER [address] [place] [address] Phone: tel: fax: [facility] [address] [place] [address] Referral ID Status Reason Start Date Expiration Date V isits Requested Visits Authorized [id number] Closed Auto-Generate d Referral 02/21/2025 07/02/2025 1 1 [facility] Summary Purpose Family History No Family History Records Found Advance Directives No Advanced Directives Records Found Date Activated Date Inactivated Comments 02/22/2025 9:21 AM Chief Complaint and Reason for Visit Chief Complaint Admit Date RIGHT KNEE BHAVNA July 09, 2024 1: 54pm PREOP July 09, 2024 2: 03pm SNORING September 05, 2024 11:5 3am Chief Complaint Admit Date RIGHT KNEE BHAVNA July 09, 2024 1: 54pm PREOP July 09, 2024 2: 03pm SNORING September 05, 2024 11:5 3am ODALIS September 18, 2024 6:0 0pm Chief Complaint Admit Date RIGHT KNEE BHAVNA July 09, 2024 1: 54pm PREOP July 09, 2024 2: 03pm SNORING September 05, 2024 11:5 3am ODALIS September 18, 2024 6:0 0pm ODALIS October 23, 2024 1:5 3pm Chief Complaint Admit Date SNORING September 05, 2024 11:5 3am ODALIS September 18, 2024 6:0 0pm ODALIS October 23, 2024 1:5 3pm ODALIS November 11, 2024 10:46 am Additional Source Comments Patient Care team informatio n (unrecognized section and content) Cigarette Stamper Relationship Specialty Start Date End Date Ruchi Brewer DO [address] [facility] [place] [phone] PCP - General Family Medicine 02/22/25 Team Status: Active Member Role Status Dates Dr. Ruchi Brewer DO Primary Care Provider Active Team Status: Inactive Member Role Status Dates Dr. Ruchi Brewer DO Primary Care Provider Active Start: July 09, 2024 End: July 09, 2024 Dr. Judith Haynes MD Attending Provider Active Start: July 09, 2024 End: July 09, 2024 Dr. Judith Haynes MD Referring Provider Active Start: July 09, 2024 End: July 09, 2024 Team Status: Active Member Role Status Dates Dr. Ruchi Brewer DO Primary Care Provider Active Start: July 09, 2024 End: July 09, 2024 Dr. Harry See MD Attending Provider Active Start: July 09, 2024 End: July 09, 2024 Dr. Judith Haynes MD Referring Provider Active Start: July 09, 2024 End: July 09, 2024 Team Status: Inactive Member Role Status Dates Dr. Ruchi Brewer DO Primary Care Provider Active Start: August 21, 2024 End: August 21, 2024 Dr. Ruchi Brewer DO Attending Provider Active Start: August 21, 2024 End: August 21, 2024 Team Status: Inactive Member Role Status Dates Dr. Ruchi Brewer DO Primary Care Provider Active Start: September 05, 2024 End: September 05, 2024 Dr. Ruchi Brewer DO Attending Provider Active Start: September 05, 2024 End: September 05, 2024 Dr. Ruchi Brewer DO Referring Provider Active Start: September 05, 2024 End: September 05, 2024 Care Team Personnel Name: RUCHI BREWER DO Member Role: Primary Care Physician Address: Address: [facility] [place] [address]- [place] Care Team Related Persons Name: SRAAH MCCORMACK (unrecognized sect ion and content) No Status Records FoundNo Status Records FoundNo Status Records FoundNo Status Records Found INFORMATION SOURCE (unrecogn ized section and content) DATE CREATED AUTHOR 04/21/2024 [facility] DATE CREATED AUTHOR AUTHOR'S ORGANIZ ATION 11/15/2024 [facility] DATE CREATED AUTHOR AUTHOR'S ORGANIZ ATION 02/26/2025 [facility] DATE CREATED AUTHOR AUTHOR'S ORGANIZ ATION 03/25/2025 [facility] Goals (unrecognized section and content) Goals may be documented in a n alternate section Source Comments (unrecognize d section and content) In the event this informatio n is protected by the Federal Confidentiality of Alcohol and Drug Abuse Patient Records regulations: The Federal rules restrict any use of the information to criminally investigate or prosecute any alcohol or drug abuse patient.[facility] the event this information is protected by the Federal Confidentiality of Alcohol and Drug Abuse Patient Records regulations: The Federal rules restrict any use of the information to criminally investigate or prosecute any alcohol or drug abuse patient.[facility] Reason for Visit (unrecogniz ed section and content) Reason Comments Consult Due for colonoscopy. Denies GI issues Scheduled Active and Recently Administ ered Medications (unrecognized section and content) Medication Order 02/20/2025 02/21/2025 02/22/2025 sodium chloride flush 0.9 % injection 5-40 mL 5-40 mL, IntraVENous, EVERY 12 HOURS SCHEDULED (2 times per day), First dose on 02/22/25 at 0945, Until Discontinued, For Line Patency: Peripheral IV = 5 mL; Midline or Central Line = 10 mL/lumen. If following IV push medication, administer flush at same rate as the IV push. Flush volume is determined by type of infusion therapy being given. For non-viscous solutions use: Peripheral IV = 5 mL Midline or Central Line = 10 mL/lumen For viscous solutions (i.e. blood components, parenteral nutrition, contrast media, or after obtaining blood sample) use: Peripheral IV = 10 mL Midline or Central Line = 20 mL/lumen, Post-op 0945 (Due)2100 (Due) PRN Medication Order 02/20/2025 02/21/2025 02/22/2025 0.9 % sodium chloride infusion IntraVENous, at 5-250 mL/hr, PRN, if patient receiving piggyback infusions and maintenance fluids are not ordered, Starting on 02/22/25 at 0921, For piggyback infusion, administer at same rate as piggyback for a total of 25 mL. Enter 25 mL into dose field and piggyback rate into rate field of order. If piggyback is infusing at a rate less than 100 mL/hr, enter 25 mL into dose field and 100 mL/hr into rate field of order., Post-op atropine 1 % ophthalmic solution (CANCELED) PRN, Starting on 02/22/25 at 0827, Until 02/22/25 at 0920, Intra-op 0827 (Given - Provid er: Reuben Milian MD) balanced salts plus (BSS) 500 mL, EPINEPHrine 0.3 mg (CANCELED) PRN, Starting on 02/22/25 at 0824, Intra-op 0824 (Given - Provid er: Reuben Milian MD) BUPivacaine (PF) (MARCAINE) 0.75 % 5 mL, lidocaine PF 2 % 5 mL (CANCELED) PRN, Starting on 02/22/25 at 0825, Intra-op 0825 (Given - Provid er: Reuben Milian MD)0828 (Given - Provider: Reuben Milian MD) ceFAZolin (ANCEF) injection (CANCELED) PRN, Starting on 02/22/25 at 0824, Until 02/22/25 at 0920, Intra-op 0824 (Given - Provid er: Reuben Milian MD) cyclopentolate (CYCLOGYL) 1 % ophthalmic solution 1 drop (COMPLETED) 1 drop, Left Eye, EVERY 5 MIN PRN, 3 doses, Starting on 02/22/25 at 0657, Until 02/22/25 at 0725, Other, pre op 0710 (Given - Provid er: Margarita Venegas RN)0715 (Given - Provider: Margarita Venegas RN)0725 (Given - Provider: Margarita Venegas RN) dexAMETHasone (DECADRON) (CANCELED) PRN, Starting on 02/22/25 at 0825, Until Sat 8 at 0920, Intra-op 0825 (Given - Provid er: Reuben Milian MD) hypromellose (PF) (IMPROVUE) 1.7 % ophthalmic solution (CANCELED) PRN, Starting on 02/22/25 at 0825, Until Sat 8 at 0920, Intra-op 0825 (Given - Provid er: Reuben Milian MD) phenylephrine (MYDFRIN) 2.5 % ophthalmic solution 1 drop (COMPLETED) 1 drop, Left Eye, EVERY 5 MIN PRN, 3 doses, Starting on 02/22/25 at 0656, Until Sat 8 at 0725, Irritation 0710 (Given - Provid er: Margarita Venegas RN)0715 (Given - Provider: Margarita Venegas RN)0725 (Given - Provider: Margarita Venegas RN) proparacaine (ALCAINE) 0.5 % ophthalmic solution 1 drop (COMPLETED) 1 drop, Left Eye, EVERY 5 MIN PRN, 3 doses, Starting on 02/22/25 at 0655, Until 02/22/25 at 0725, Pain 0710 (Given - Provid er: Margarita Venegas RN)0715 (Given - Provider: Margarita Venegas RN - Comment: preop)0725 (Given - Provider: Margarita Venegas RN) sodium chloride flush 0.9 % injection 5-40 mL 5-40 mL, IntraVENous, PRN, Starting on 02/22/25 at 0921, Until Discontinued, Line Care, After every IV line use, For Line Patency: Peripheral IV = 5 mL; Midline or Central Line = 10 mL/lumen. If following IV push medication, administer flush at same rate as the IV push. Flush volume is determined by type of infusion therapy being given. For non-viscous solutions use: Peripheral IV = 5 mL Midline or Central Line = 10 mL/lumen For viscous solutions (i.e. blood components, parenteral nutrition, contrast media, or after obtaining blood sample) use: Peripheral IV = 10 mL Midline or Central Line = 20 mL/lumen, Post-op tobramycin-dexAMETHasone (TOBRADEX) ophthalmic ointment (CANCELED) PRN, Starting on 02/22/25 at 0826, Intra-op 0826 (Given - Provid er: Reuben Milian MD) tropicamide (MYDRIACYL) 1 % ophthalmic solution 1 drop (COMPLETED) 1 drop, Left Eye, EVERY 5 MIN PRN, 3 doses, Starting on 02/22/25 at 0656, Until 02/22/25 at 0725, preop 0710 (Given - Provid er: Margarita Venegas RN)0715 (Given - Provider: Margarita Venegas RN)0725 (Given - Provider: Margarita Venegas RN) FOR RECORDS PERTAINING TO PATIENTS WHO ARE [...] BE BASED ON THE PRIMARY CLINICAL RECORDS. [employer] [facility]. provides no warranty or guarantee of the accuracy or completeness of information in this document.
[2025-05-13 18:03] LABS: Hematocrit 49.5 % (40-54); Hemoglobin 16.9 g/dL (13.0-16.5); Immature Granulocytes Count 0.030 X10^3/uL (0.0-0.0); Mean Corp Hgb Conc 34.1 g/dL (32-36); Mean Corpuscular Volume 89.5 fL (80-94); Mean Platelet Vol. 9.3 fl (6.2-12.0); NRBC Flagged by Analyzer 0 % (0-5); Platelet Count 267 K/mm3 (150-450); RBC Distribution Width CV 12.8 % (11.6-14.6); RBC Distribution Width SD 41.9 fl (35.1-43.9); Red Blood Count 5.53 M/mm3 (4.6-6.2); White Blood Count 8.7 K/mm3 (4.4-11.0)
[2025-05-13 18:32] LABS: AST(SGOT) 24 U/L (<=37); Alanine Aminotransfer ALT/SGPT 26 U/L (<=46); Albumin, Serum 4.4 g/dL (3.4-4.8); Alkaline Phosphatase 97 U/L (40-129); Anion Gap 12 (5-15); BUN 20 mg/dL (4-19); BUN/Creat Ratio 21.0 RATIO (10-20); Calcium,Total 9.2 mg/dL (7.6-11.0); Carbon Dioxide 20.5 mmol/L (21.0-32.0); Chloride 107 mmol/L (98-108); Cholesterol 165 mg/dL (<=200); Globulin 3.0 g/dL (2.2-4.2); Glucose 106 mg/dL (70-99); Low Density Lipoprotein Calc. 90 mg/dL; PSA,Total - Annual Screen 1.34 ng/mL (0.02-4.00); Potassium 4.3 mmol/L (3.3-5.1); Triglycerides 207 mg/dL; Very Low Density Lipoprotein 41 mg/dL (5-40); cholesterol:hdl ratio screen 4.11
== END | disposition home or self-care (01) ==
LOC: BFHLAB 15:40
PROVIDERS: PCP Family Medicine; Visit Provider Family Medicine
DX: Z00.00 Encounter for general adult medical examination without abnormal findings (principal); R73.03 Prediabetes; Z12.5 Encounter for screening for malignant neoplasm of prostate
CPT/HCPCS: 36415; 80053; 80061; 83036; 84153; 85025; G0103